=== PATIENT | male | born 1935 | race Caucasian/White ===

== ENCOUNTER 2018-09-11 19:50 | Inpatient (IN) | payer MEDICARE, OTHER ==
[~2018-09-11] VITALS: Ht 157.5 cm; Wt 83.6 kg
[2018-09-11] MEDS ORDERED: ONDANSETRON 4 MG INJ IV STA (21:57)
[2018-09-11] MEDS ORDERED: CEFTRIAXONE 1 GM/50 ML (PMX) 50 ML IVPB STA (23:39)
[2018-09-11] MEDS ORDERED: AZITHROMYCIN 500MG/NS (PMX) 250 ML IV STA (23:39)
[2018-09-12] VITALS (10 sets, daily range): BP systolic 142–155; BP diastolic 70–80; PULSE 65–72; RESP 18; Ht 157.5 cm; Wt 83.6 kg
--- NOTE | 2018-09-12 00:17 | ERD ---
ER Documentation Chief Complaint Chief Complaint BIBA: report pt felt dizzy at home, guided self to floor feels better now HPI This is an 83-year-old male with a history of hypertension, CAD, CHF who presents to the emergency room for evaluation of generalized weakness, mild shortness of breath and dry cough. The patient states his symptoms have been present for the past 24 hours. He describes his dizziness as a generalized wea kness and not a room spinning sensation. The patient came in today for evaluation of his symptoms. He denies any aggravating or relieving factors at this time ROS All systems reviewed and are negative except as per history of present illness. Medications Home Meds Unable to Obtain Active Prescriptions or Reported Meds Allergies Allergies: Coded Allergies: Unknown: Unable to obtain (Unverified , 09/11/18) PMhx/Soc Hx Cardiac Disorders: Yes (HTN) Smoking Status: Unknown if ever smoked Physical Exam Vitals Vital Signs Date Temp Pulse Resp B/P (MAP) Pulse Ox O2 O2 Flow FiO2 Time Delivery Rate 09/11/18 97.6 75 18 166/100 96 Room Air 22:20 (122) 09/11/18 98.3 84 20 168/98 94 19:59 (121) Physical Exam INITIAL VITAL SIGNS: Reviewed by me GENERAL: The patient is well developed and appropriate for usual state of health in no apparent distress HEENT: Pupils equal, round, and reactive to light. EOMI. There is no scleral icterus. NECK: C-spine is soft and supple, there is no meningismus. There is no cervical lymphadenopathy. LUNGS: Coarse rhonchi in the bilateral lower lobes HEART: Regular rate and rhythm, no murmurs, clicks, rubs or gallops. ABDOMEN: Soft, non-tender, non-distended. There are bowel sounds in all four quadrants. No rebound or guarding. EXTREMITIES: There is no peripheral cyanosis or edema. No focal swelling or erythema. NEUROLOGICAL: The patient moves all four extremities with 5/5 strength. Cranial nerves II - XII are intact. Normal gait. Alert and oriented SKIN: There is no apparent rash or petechiae. HEME/LYMPHATIC: There is no evidence of excessive bruising or lymphedema. PSYCHIATRIC: The patient does not appear anxious or depressed. Result Diagram: 09/11/180 09/11/18 2210 Results 24 hrs Laboratory Tests Test 09/11/18 22:10 White Blood Count 10.7 10^3/ul Red Blood Count 4.12 10^6/ul Hemoglobin 14.0 g/dl Hematocrit 41.3 % Mean Corpuscular Volume 100.2 fl Mean Corpuscular Hemoglobin 34.0 pg Mean Corpuscular Hemoglobin Concent 33.9 g/dl Red Cell Distribution Width 13.1 % Platelet Count 140 10^3/UL Mean Platelet Volume 11.0 fl Immature Granulocytes % 0.300 % Neutrophils % 76.0 % Lymphocytes % 17.0 % Monocytes % 5.4 % Eosinophils % 1.0 % Basophils % 0.3 % Nucleated Red Blood Cells % 0.0 /100WBC Immature Granulocytes # 0.030 10^3/ul Neutrophils # 8.1 10^3/ul Lymphocytes # 1.8 10^3/ul Monocytes # 0.6 10^3/ul Eosinophils # 0.1 10^3/ul Basophils # 0.0 10^3/ul Nucleated Red Blood Cells # 0.0 10^3/ul Sodium Level 138 mmol/L Potassium Level 4.3 mmol/L Chloride Level 101 mmol/L Carbon Dioxide Level 28 mmol/L Anion Gap 9 Blood Urea Nitrogen 26 mg/dl Creatinine 1.26 mg/dl Est Glomerular Filtrat Rate mL/min mL/min Glucose Level 123 mg/dl Calcium Level 10.1 mg/dl Total Bilirubin 0.5 mg/dl Direct Bilirubin 0.00 mg/dl Indirect Bilirubin 0.5 mg/dl Aspartate Amino Transf (AST/SGOT) 31 IU/L Alanine Aminotransferase (ALT/SGPT) 19 IU/L Alkaline Phosphatase 82 IU/L Troponin I < 0.012 ng/ml B-Type Natriuretic Peptide 1150 PG/ML Total Protein 7.7 g/dl Albumin 4.1 g/dl Globulin 3.60 g/dl Albumin/Globulin Ratio 1.13 Current Medications Medications Dose Sig/Nazario Start Time Status Last (Trade) Ordered Route PRN Stop Time Admin Dose Reason Admin Ondansetron 4 mg ONCE STAT 09/11/18 DC 09/11/18 HCl (Zofran IV 21:57 22:18 Inj) 09/11/18 21:59 Ceftriaxone 50 ml @ ONCE STAT 09/11/18 DC Sodium 100 mls/hr IVPB 23:39 09/12/18 00:08 Azithromycin 250 ml @ ONCE STAT 1/25/19 250 mls/hr IV 23:39 09/12/18 00:38 Procedures/MDM Chest X-ray 1V Interpreted by me: Soft Tissue: No acute abnormalities Bones: No acute abnormalities Mediastinum/Cardiac Silhouette/Lungs: Right lower lobe pneumonia EKG: Rate/Rhythm: Paced rhythm QRS, ST, T-waves: [No changes consistent w/ acute ischemia] Impression: Paced rhythm This 83-year-old male presents to the ER for evaluation of multiple complaints including generalized weakness, dizziness, cough and shortness of breath. The patient was afebrile and nontoxic-appearing on my examination. His pulse ox was 98% on room air. He did have coarse breath sounds bilaterally and lab work was obtained. Chest x-ray does demonstrate right lower lobe pneumonia. He has no leukocytosis at this time however given his age and risk factors this patient will benefit from inpatient hospitalization for continued IV antibiotics, repeat chest x-ray in possible pulmonology consult. The patient will be admitted to the telemetry floor under the care of Dr. Strong. He has no signs of sepsis at this time. Blood cultures were drawn before administration of a Rocephin and azithromycin. Departure Diagnosis: Primary Impression: Right lower lobe pneumonia Additional Impressions: Generalized weakness Dizziness Cough CHF (congestive heart failure) Condition: BUTCH Haddad DO Sep 12, 2018 00:17
[2018-09-12] MEDS ORDERED: ONDANSETRON 4 MG INJ IV PRN ×2 (00:30→01:00)
[2018-09-12] MEDS ORDERED: ACETAMINOPHEN 325 MG TAB PO PRN (00:30)
[2018-09-12] MEDS ORDERED: BISACODYL (EC) 5 MG TAB PO PRN (01:00)
[2018-09-12] MEDS ORDERED: DOCUSATE SODIUM 100 MG CAP PO PRN (01:00)
[2018-09-12] MEDS ORDERED: NACL 0.9% 3 ML SYG IV SCH (01:00)
--- NOTE | 2018-09-12 01:19 | NUR ---
Patient arrived to unit from ED. No acute distress or discomfort noted. BP: 155/80, RR 18, temp 97.9F, HR 72, SpO2 98% on 2L nasal cannula. Unable to get Farsi translation at this time. Pending translation to verify patient medical history, demographics, and admission criteria.
--- NOTE | 2018-09-12 07:02 | NUR ---
EOSS: Patient alert and oriented x4, audible wheezing, but no complaints of discomfort or distress. Able to get Farsi data lead to verify patient information. All needs anticipated and met. Will continue to monitor and endorse to oncoming shift.
[2018-09-12] MEDS ORDERED: FUROSEMIDE 40 MG INJ IV ONE (08:30)
--- NOTE | 2018-09-12 08:30 | HP ---
Date/Time of Note Date/Time of Note DATE: 09/12/18 TIME: 08:23 Assessment/Plan VTE Prophylaxis SCD applied (from Nsg): Yes Pharmacological prophylaxis: LMWH Lines/Catheters IV Catheter Type (from Nrsg): Saline Lock Assessment/Plan Hospital Course This is a 83-year-old male being admitted to telemetry floor: #1 dyspnea: Community-acquired pneumonia versus CHF exacerbation: Patient has questionable infiltrates versus pulmonary congestion on x-ray. He is afebrile. He was started on antibiotics in the ED at the current time we will continue ceftriaxone and azithromycin. I will also give the patient a dose of Lasix. He did have an elevated BNP of approximately 1000. Will check an echocardiogram. Strict I's and O's monitor daily weight. We will trend cardiac enzymes, the first that was negative #2 possible CHF exacerbation, size systolic versus diastolic: We will check an echocardiogram, will give a dose of Lasix. Will monitor closely for additional Lasix. We will need to confirm patient's home medications #3 hypertension: We will need to confirm patient's home medications, monitor patient blood pressure #4 coronary artery disease: Again we will need to confirm patient's home medications #5 DVT GI prophylaxis: Lovenox, no GI prophylaxis indicated Further treatment strategy will be implemented as per the clinical course. Result Diagram: 09/12/18 0603 09/12/18 0603 Results 24hrs Laboratory Tests Test 09/11/18 22:10 09/12/18 00:26 09/12/18 06:02 09/12/18 06:03 White Blood Count 10.7 8.2 # Red Blood Count 4.12 L 3.93 L Hemoglobin 14.0 13.2 L Hematocrit 41.3 L 40.2 L Mean Corpuscular 100.2 102.3 H Volume Mean Corpuscular 34.0 H 33.6 H Hemoglobin Mean Corpuscular 33.9 32.8 Hemoglobin Concent Red Cell 13.1 13.0 Distribution Width Platelet Count 140 120 L Mean Platelet Volume 11.0 H 12.0 H Immature 0.300 0.200 Granulocytes % Neutrophils % 76.0 67.5 Lymphocytes % 17.0 21.6 Monocytes % 5.4 7.9 Eosinophils % 1.0 2.2 Basophils % 0.3 0.6 Nucleated Red Blood 0.0 0.0 Cells % Immature 0.030 0.020 Granulocytes # Neutrophils # 8.1 H 5.6 Lymphocytes # 1.8 1.8 Monocytes # 0.6 0.7 Eosinophils # 0.1 0.2 Basophils # 0.0 0.1 Nucleated Red Blood 0.0 0.0 Cells # Sodium Level 138 142 Potassium Level 4.3 3.9 Chloride Level 101 102 Carbon Dioxide Level 28 32 H Anion Gap 9 8 Blood Urea Nitrogen 26 H 22 H Creatinine 1.26 H 1.16 Est Glomerular Filtrat Rate mL/min Glucose Level 123 95 Calcium Level 10.1 9.1 Total Bilirubin 0.5 0.5 Direct Bilirubin 0.00 0.00 Indirect Bilirubin 0.5 0.5 Aspartate Amino 31 28 Transf (AST/SGOT) Alanine 19 23 Aminotransferase (AL T/SGPT) Alkaline Phosphatase 82 59 Troponin I < 0.012 < 0.012 B-Type Natriuretic 1150 H Peptide Total Protein 7.7 7.2 Albumin 4.1 3.6 Globulin 3.60 H 3.60 H Albumin/Globulin 1.13 1.00 Ratio POC Venous Lactate 1.5 Creatine Kinase 39 Creatine Kinase 2.0 Index Creatinine Kinase MB 0.78 (Mass) Hemoglobin A1c 4.6 Magnesium Level 2.2 Triglycerides Level 90 Cholesterol Level 158 LDL Cholesterol, 105 Calculated HDL Cholesterol 35 Cholesterol/HDL 4.5 Ratio Thyroid Stimulating 2.730 Hormone (TSH) HPI/ROS Admit Date/Time Admit Date/Time Sep 12, 2018 at 00:14 Hx of Present Illness Chief complaint: Dizziness, Patient is a poor historian he is unable to provide history of his medications., this is an 83-year-old male with a history of hypertension, CAD, CHF, status post pacemaker who presents to the emergency room for evaluation of generalized weakness, mild shortness of breath and dry cough. The patient states his symptoms have been present for the past 24 hours. He describes his dizziness as a generalized weakness and not a room spinning sensation. Patient reported that he felt dizzy at home so he slowly sat himself on the floor and then started feeling better. The patient came in today for evaluation of his symptoms. He denies any aggravating or relieving factors at this time denies any fevers. Allergies: Unknown Medications: Unknown, unable to obtain ROS Const: As per HPI Eyes : No pain discharge or redness or change in visual acuity ENT: No pain, sore throat, congestion, congestion, dysphagia or discharge Respiratory: As per HPI Cardiovascular: As per HPI GI : no change in appetite, abdominal pain, nausea, vomiting, diarrhea, constipation, or change in the color his stool Genitourinary: No dysuria, hematuria, flank pain , discharge or CVA tenderness Musculoskeletal: No joint pain, back pain, neck pain, restricted range of motion in neck or joints Skin: No rash, bruising or hives Neuro: No headache, dizziness, syncope, seizure, focal weakness Endocrine: No polyuria, polydipsia, temperature intolerance Psych: No hallucination, depression, anxiety or suicidal ideation PMH/Family/Social Past Medical History hypertension, CAD, CHF, status post pacemaker Medications Current Medications Ondansetron HCl (Zofran Inj) 4 mg ER BRIDGE PRN IV NAUSEA/VOMITING; Start 09/12/18 at 00:30; Stop 09/13/18 at 00:29 Acetaminophen (Tylenol Tab) 650 mg ER BRIDGE PRN PO .MILD PAIN 1-3 OR TEMP; Start 09/12/18 at 00:30; Stop 09/13/18 at 00:29 IV Flush (NS 3 ml) 3 ml PER PROTOCOL IV ; Start 09/12/18 at 01:00 Ondansetron HCl (Zofran Inj) 4 mg Q6H PRN IV NAUSEA/VOMITING; Start 09/12/18 at 01:00 Acetaminophen (Tylenol Tab) 650 mg Q6H PRN PO .PAIN 1-3 OR TEMP; Start 09/12/18 at 01:00 Docusate Sodium (Colace) 100 mg Q12H PRN PO .CONSTIPATION; Start 09/12/18 at 01:00 Bisacodyl (Dulcolax) 5 mg DAILY PRN PO .CONSTIPATION; Start 09/12/18 at 01:00 Enoxaparin Sodium (Lovenox) 30 mg DAILY SC ; Start 09/12/18 at 09:00 Ceftriaxone Sodium 50 ml @ 100 mls/hr Q24H IVPB ; Start 09/12/18 at 23:00 Azithromycin 250 ml @ 250 mls/hr Q24H IVPB ; Start 09/12/18 at 23:00 Furosemide (Lasix) 40 mg ONCE ONCE IV ; Start 09/12/18 at 08:30; Stop 09/12/18 at 08:31 Coded Allergies: Unknown: Unable to obtain (Unverified , 1/25/19) Past Surgical History Pacemaker Family History Significant Family History: no pertinent family hx Social History Smoking Status: Unknown if ever smoked Exam/Review of Systems Vital Signs Vitals Vital Signs Date Temp Pulse Resp B/P (MAP) Pulse Ox O2 O2 Flow FiO2 Time Delivery Rate 09/12/18 72 08:14 09/12/18 98.1 18 152/74 98 Room Air 04:00 (100) 09/12/18 2.0 01:49 Exam Exam General: Patient currently sitting upright in bed in no acute distress HEENT: Atraumatic, normocephalic. The pupils are equal, round and reactive. Extraocular motor are intact Neck: Supple with full range of motion. No rigidity or meningismus Chest: Nontender Lungs: Coarse breath sounds bilaterally, crackles/on 1 of the colon but no cough: Adventitious breath sounds at the right lower lung base Heart: Normal S1-S2, Regular rhythm and rate. No murmur, S3, or S4 Abdomen: Soft , nontender, nondistended , bowel sounds are present. No guarding no rebound tenderness , No masses or organomegaly. No costovertebral temporal angle mass Extremities: Normal to inspection, no edema no cyanosis, Neurologic: Normal mental status, speech normal, cranial nerves II through XII are intact, motor and sensory are intact, Additional Comments EKG: Rate/Rhythm: Paced rhythm QRS, ST, T-waves: [No changes consistent w/ acute ischemia] Impression: Paced rhythm PROCEDURE: CT Brain without contrast. CLINICAL INDICATION: 83-year-old male. Headache and dizziness. TECHNIQUE: A CT of the brain was performed on a multi-slice CT scanner utilizing axial imaging from the skull base through the vertex without IV contrast. Multiplanar reformatted images were made. Images were reviewed on a PACS workstation. One or more the following dose reduction techniques were utilized: Automated exposure control, adjustment of mA/ or kV according to patient's size, or use of iterative reconstruction technique. DICOM images are available for review. The CTDIvol is 38.38 mGy and the DLP is 634.23 mGycm. COMPARISON: None FINDINGS: Generalized cerebral volume loss with cortical sulcal prominence and ex vacuo enlargement of the lateral and third ventricles. No acute intra-axial or extra- axial hemorrhage. No subdural collection. Mendiola - white matter differentiation is maintained. Scattered focal areas of decreased attenuation and confluent areas of low attenuation change noted throughout the white matter of the left and right cerebral hemispheres. No hyperdense MCA or basilar artery sign. No asymmet river sulcal effacement. Air fluid level left maxillary sinus. Mastoid air cells are clear. IMPRESSION: 1. Age-appropriate involutional change. 2. 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 3. acute intracranial hemorrhage or subdural collection. 4. Acute left maxillary sinus disease. RPTAT: HLRS Physician Jennie Date Time Electronically viewed and signed by Physician Jennie on 09/11/2018 23:35 RS/ CC: BUTCH FRAUSTO DO [id number] PROCEDURE: DX Chest 1 View CLINICAL INDICATION: Chest pain. TECHNIQUE: AP Portable chest. COMPARISON: None FINDINGS: Dual chamber pacing device, generator on the left. Apical lordotic projection. Borderline cardiomegaly. Aortic calcified plaque present. No CHF or hilar enlargement. Increased markings are present in the mid and lower right lung. Subsegmental atelectasis mid lateral left lung. Loop recorder projects over the medial mid left lung. IMPRESSION: 1. Poorly defined mid to lower right lung infiltrate/pneumonia. 2. Pacing device and loop recorder. 3. Borderline cardiomegaly. RPTAT: HLRS Physician Jennie Date Time Electronically viewed and signed by Physician Jennie on 09/11/2018 23:36 RS/ CC: BUTCH FRAUSTO DO [id number] JARROD STERLING Sep 12, 2018 08:30
[2018-09-12] MEDS: ENOXAPARIN 30 MG/0.3 ML SYG SC SCH (08:44)
[2018-09-12] MEDS: ACETAMINOPHEN 325 MG TAB PO PRN (10:07)
--- NOTE | 2018-09-12 11:49 | PN ---
Date/Time of Note Date/Time of Note DATE: 09/12/18 TIME: 11:47 Assessment/Plan VTE Prophylaxis Risk score (from Ns)>0 risk: 5 SCD applied (from Ns): Yes Pharmacological prophylaxis: LMWH Lines/Catheters IV Catheter Type (from Nrs): Saline Lock Assessment/Plan Assessment/Plan This is a brief note that this patient was seen this morning. Patient was admitted shortness of breath and dizziness. He is being treated for pneumonia. Head CT was negative for acute findings. Continue plan of care as outlined on the H&P Result Diagram: 09/12/18 0603 09/12/18 0603 Results 24hrs Laboratory Tests Test 09/11/18 22:10 09/12/18 00:26 09/12/18 06:02 09/12/18 06:03 White Blood Count 10.7 8.2 # Red Blood Count 4.12 L 3.93 L Hemoglobin 14.0 13.2 L Hematocrit 41.3 L 40.2 L Mean Corpuscular 100.2 102.3 H Volume Mean Corpuscular 34.0 H 33.6 H Hemoglobin Mean Corpuscular 33.9 32.8 Hemoglobin Concent Red Cell 13.1 13.0 Distribution Width Platelet Count 140 120 L Mean Platelet Volume 11.0 H 12.0 H Immature 0.300 0.200 Granulocytes % Neutrophils % 76.0 67.5 Lymphocytes % 17.0 21.6 Monocytes % 5.4 7.9 Eosinophils % 1.0 2.2 Basophils % 0.3 0.6 Nucleated Red Blood 0.0 0.0 Cells % Immature 0.030 0.020 Granulocytes # Neutrophils # 8.1 H 5.6 Lymphocytes # 1.8 1.8 Monocytes # 0.6 0.7 Eosinophils # 0.1 0.2 Basophils # 0.0 0.1 Nucleated Red Blood 0.0 0.0 Cells # Sodium Level 138 142 Potassium Level 4.3 3.9 Chloride Level 101 102 Carbon Dioxide Level 28 32 H Anion Gap 9 8 Blood Urea Nitrogen 26 H 22 H Creatinine 1.26 H 1.16 Est Glomerular Filtrat Rate mL/min Glucose Level 123 95 Calcium Level 10.1 9.1 Total Bilirubin 0.5 0.5 Direct Bilirubin 0.00 0.00 Indirect Bilirubin 0.5 0.5 Aspartate Amino 31 28 Transf (AST/SGOT) Alanine 19 23 Aminotransferase (AL T/SGPT) Alkaline Phosphatase 82 59 Troponin I < 0.012 < 0.012 B-Type Natriuretic 1150 H Peptide Total Protein 7.7 7.2 Albumin 4.1 3.6 Globulin 3.60 H 3.60 H Albumin/Globulin 1.13 1.00 Ratio POC Venous Lactate 1.5 Creatine Kinase 39 Creatine Kinase 2.0 Index Creatinine Kinase MB 0.78 (Mass) Hemoglobin A1c 4.6 Magnesium Level 2.2 Triglycerides Level 90 Cholesterol Level 158 LDL Cholesterol, 105 Calculated HDL Cholesterol 35 Cholesterol/HDL 4.5 Ratio Thyroid Stimulating 2.730 Hormone (TSH) Test 09/12/18 10:24 Creatine Kinase 39 Creatine Kinase 1.6 Index Creatinine Kinase MB 0.64 (Mass) Troponin I < 0.012 Subjective 24 Hr Interval Summary Free Text/Dictation Patient is Farsi speaking, but stated that his breathing is better. Exam/Review of Systems Exam Vitals Vital Signs Date Temp Pulse Resp B/P (MAP) Pulse Ox O2 O2 Flow FiO2 Time Delivery Rate 09/12/18 Nasal 2.0 08:30 Cannula 09/12/18 72 08:14 09/12/18 97.2 18 149/70 96 07:55 (96) Constitutional: alert, oriented, well developed Eyes: EOMI, PERRL Respiratory: other (Slightly decreased breath sounds at the bases bilaterally) Cardiovascular: other (Sinus tachycardia) Gastrointestinal: soft Extremities: normal pulses Results Results 24hrs Laboratory Tests Test 09/11/18 22:10 09/12/18 00:26 09/12/18 06:02 09/12/18 06:03 White Blood Count 10.7 8.2 # Red Blood Count 4.12 L 3.93 L Hemoglobin 14.0 13.2 L Hematocrit 41.3 L 40.2 L Mean Corpuscular 100.2 102.3 H Volume Mean Corpuscular 34.0 H 33.6 H Hemoglobin Mean Corpuscular 33.9 32.8 Hemoglobin Concent Red Cell 13.1 13.0 Distribution Width Platelet Count 140 120 L Mean Platelet Volume 11.0 H 12.0 H Immature 0.300 0.200 Granulocytes % Neutrophils % 76.0 67.5 Lymphocytes % 17.0 21.6 Monocytes % 5.4 7.9 Eosinophils % 1.0 2.2 Basophils % 0.3 0.6 Nucleated Red Blood 0.0 0.0 Cells % Immature 0.030 0.020 Granulocytes # Neutrophils # 8.1 H 5.6 Lymphocytes # 1.8 1.8 Monocytes # 0.6 0.7 Eosinophils # 0.1 0.2 Basophils # 0.0 0.1 Nucleated Red Blood 0.0 0.0 Cells # Sodium Level 138 142 Potassium Level 4.3 3.9 Chloride Level 101 102 Carbon Dioxide Level 28 32 H Anion Gap 9 8 Blood Urea Nitrogen 26 H 22 H Creatinine 1.26 H 1.16 Est Glomerular Filtrat Rate mL/min Glucose Level 123 95 Calcium Level 10.1 9.1 Total Bilirubin 0.5 0.5 Direct Bilirubin 0.00 0.00 Indirect Bilirubin 0.5 0.5 Aspartate Amino 31 28 Transf (AST/SGOT) Alanine 19 23 Aminotransferase (AL T/SGPT) Alkaline Phosphatase 82 59 Troponin I < 0.012 < 0.012 B-Type Natriuretic 1150 H Peptide Total Protein 7.7 7.2 Albumin 4.1 3.6 Globulin 3.60 H 3.60 H Albumin/Globulin 1.13 1.00 Ratio POC Venous Lactate 1.5 Creatine Kinase 39 Creatine Kinase 2.0 Index Creatinine Kinase MB 0.78 (Mass) Hemoglobin A1c 4.6 Magnesium Level 2.2 Triglycerides Level 90 Cholesterol Level 158 LDL Cholesterol, 105 Calculated HDL Cholesterol 35 Cholesterol/HDL 4.5 Ratio Thyroid Stimulating 2.730 Hormone (TSH) Test 09/12/18 10:24 Creatine Kinase 39 Creatine Kinase 1.6 Index Creatinine Kinase MB 0.64 (Mass) Troponin I < 0.012 Medications Medication Current Medications Ondansetron HCl (Zofran Inj) 4 mg ER BRIDGE PRN IV NAUSEA/VOMITING; Start 09/12/18 at 00:30; Stop 09/13/18 at 00:29 Acetaminophen (Tylenol Tab) 650 mg ER BRIDGE PRN PO .MILD PAIN 1-3 OR TEMP; Start 09/12/18 at 00:30; Stop 09/13/18 at 00:29 IV Flush (NS 3 ml) 3 ml PER PROTOCOL IV ; Start 09/12/18 at 01:00 Ondansetron HCl (Zofran Inj) 4 mg Q6H PRN IV NAUSEA/VOMITING; Start 09/12/18 at 01:00 Acetaminophen (Tylenol Tab) 650 mg Q6H PRN PO .PAIN 1-3 OR TEMP Last administered on 09/12/18at 10:07; Admin Dose 650 MG; Start 09/12/18 at 01:00 Docusate Sodium (Colace) 100 mg Q12H PRN PO .CONSTIPATION; Start 09/12/18 at 01:00 Bisacodyl (Dulcolax) 5 mg DAILY PRN PO .CONSTIPATION; Start 09/12/18 at 01:00 Enoxaparin Sodium (Lovenox) 30 mg DAILY SC Last administered on 09/12/18at 08:44; Admin Dose 30 MG; Start 09/12/18 at 09:00 Ceftriaxone Sodium 50 ml @ 100 mls/hr Q24H IVPB ; Start 09/12/18 at 23:00 Azithromycin 250 ml @ 250 mls/hr Q24H IVPB ; Start 09/12/18 at 23:00 SVITLANA BARRERA MD Sep 12, 2018 11:49
--- NOTE | 2018-09-12 18:07 | NUR ---
EOSS Patient is alert and oriented to person, place, and time. Farsi speaking. Used phone night auditor to communicate with patient about medications and plan of care. Patient able to verbalize understanding of discussion. Patient was noted with audible wheezing on bilateral lungs. MD made aware and received orders. Patient was given lasix IVP x1. Patient has improved breathing after treatment. monitored strict I&O. All needs attended to and met. Kept comfortable. Call light within reach.
[2018-09-12] MEDS: AZITHROMYCIN 250 MG TAB PO SCH (21:04)
[2018-09-12] MEDS ORDERED: AZITHROMYCIN 500MG/NS (PMX) 250 ML IVPB SCH (23:00)
[2018-09-12] MEDS: CEFTRIAXONE 1 GM/50 ML (PMX) 50 ML IVPB SCH (23:28)
[2018-09-13] VITALS (12 sets, daily range): BP systolic 128–172; BP diastolic 63–94; PULSE 67–175; RESP 18–21
[2018-09-13] MEDS: ACETAMINOPHEN 325 MG TAB PO PRN ×2 (03:29→09:14)
--- NOTE | 2018-09-13 06:19 | NUR ---
EOSS: Pt asleep in bed. VS stable, denies SOB. Pain partially managed w/pharmacologic intervention. Pt complaining of abdominal discomfort, using an calender let off helper, pt describes the pain relating to constipation, Dr. Strong notified, new orders given. Rounded on hourly, bed in locked and low position, bed alarm green, bed rail x2, call light within reach; pt reminded to call when in need of assistance. Will endorse to dayshift RN.
[2018-09-13] MEDS ORDERED: POLYETHYLENE GLYCOL 17 GM PACKET PO PRN (06:30)
[2018-09-13] MEDS ORDERED: POLYETHYLENE GLYCOL 17 GM PACKET GTB PRN (06:30)
[2018-09-13] MEDS: DOCUSATE SODIUM 100 MG CAP PO SCH ×2 (06:54→21:32)
--- NOTE | 2018-09-13 08:50 | RADRPT ---
Echocardiogram Report Patient Name: JUSTIN DERAS Gender: Male Date: 1935 Study Date: 12-Sep-2018 Fringe Knotter: Kirit Contreras [facility] Location: 514[address] Ref. Physician: JARROD STERLING Quality: Adequate Procedures: Transthoracic echocardiogram with complete 2D, M-Mode, and doppler examination. Indications: Cardiomegaly. 2D/M Mode Doppler Measurement Value Normal Ranges Measurement Value Normal Ranges LVIDd 2D 5.0 3.5 - 5.6 cm AV Peak Franklyn 1.1 m/sec LVIDs 2D 3.4 2.1 - 4.1 cm AV Peak PG 5.0 mmHg LVPWd 2D 1.0 0.6 - 1.1 cm LVOT Peak Franklyn 0.8 m/sec IVSd 2D 1.2 0.6 - 1.1 cm LVOT Peak PG 3.0 mmHg AoR Diam 2D 2.6 2.0 - 3.7 cm MV E Peak Franklyn 0.7 m/sec LA/Ao 2D 2 0 - 1 MV A Peak Franklyn 1.1 m/sec LA Dimen 2D 4.6 2.3 - 4.0 cm MV E/A 0.7 MV Decel Time 250 msec Lat E` Franklyn 0.0 m/sec Lateral E/E` 16.0 Med E` Franklyn 0.0 m/sec MV E/A 0.7 TR Peak Franklyn 2.6 m/sec TR Peak PG 28.0 mmHg RVSP 36.0 mmHg Findings Left Ventricle: Lower limits of normal systolic function. Normal left ventricular cavity size. Sigmoid septum. Ejection fraction is visually estimated at 50 %. Tissue Doppler/Mitral Doppler indices are consistent with impaired relaxation (Stage I diastolic dysfunction). Right Ventricle: Normal right ventricular size. Normal right ventricular systolic function. Left Atrium: There is mild enlargement of left atrium. Right Atrium: The right atrium is normal in size. Mitral Valve: Moderate mitral leaflet calcification. Mild mitral annular calcification. Trace mitral regurgitation. Aortic Valve: No significant aortic stenosis or insufficiency. Aortic cusps appear mildly calcified. Trace aortic valve regurgitation. Tricuspid Valve: Normal appearance of the tricuspid valve. Estimated peak PA systolic pressure 28 mmHg. There is mild tricuspid regurgitation. Pericardium: Normal pericardium with no significant pericardial effusion. Aorta: Normal aortic root. IVC: Normal size and no respiratory collapse consistent with elevated right atrial pressure. Conclusions Lower limits of normal systolic function. Normal left ventricular cavity size. Sigmoid septum. Ejection fraction is visually estimated at 50 %. Tissue Doppler/Mitral Doppler indices are consistent with impaired relaxation (Stage I diastolic dysfunction). Electronically Signed By: Moiz Calvert 13-Sep-2018 08:50:05 -0800 Patient Name: JUSTIN DERAS Study Date: 12-Sep-2018 [id number]
[2018-09-13] MEDS: ENOXAPARIN 30 MG/0.3 ML SYG SC SCH (09:18)
--- NOTE | 2018-09-13 11:03 | PN ---
Date/Time of Note Date/Time of Note DATE: 09/13/18 TIME: 11:02 Assessment/Plan VTE Prophylaxis Risk score (from Ns)>0 risk: 5 SCD applied (from Ns): No SCD contraindicated: other Pharmacological prophylaxis: LMWH Lines/Catheters IV [facility]ter Type (from [facility] Saline Lock Assessment/Plan Hospital Course SUBJECTIVE: Complains of constipation. OBJECTIVE: Physical Exam General: Adequately build 83 year-old male lying in bed in no apparent distress. HEENT: Normocephalic, atraumatic. Eyes: Anicteric sclerae, conjunctivae clear. ENT: Nasal septum midline, oral mucosa moist. Neck supple, JVD noticed. Respiratory: Bilaterally diminished breath sounds. No use of accessory muscles of respiration. Bibasilar rales. Cardiovascular: S1, S2 heard. No murmurs or gallops. Abdomen: Soft, nontender, and nondistended. Bowel sounds positive in all 4 quadrants. Genitourinary: Deferred. Extremities: No cyanosis, no clubbing, no edema. Peripheral pulses palpable. Neurologic: Cranial nerves II through XII grossly intact. The patient is awake, alert, and oriented. Skin: Normal skin turgor. No skin rashes. Labs & Vitals per chart ASSESSMENT & PLAN 83-year-old male with comorbidities including hypertension, CAD, CHF, and perm anent pacemaker placement, who came to the emergency room with chief complaint of dizziness. Patient underwent a chest x-ray in the emergency room that showed poorly defined lower right lung infiltrate/pneumonia. The patient was admitted to inpatient setting for further treatment and evaluation. 1. Suspected community-acquired pneumonia. -Continue Zithromax plus Rocephin. 2. Congestive heart failure exacerbation. -Diastolic dysfunction. -Spot diuresis. 3. Essential hypertension. -Confirm the patient's home medications and resume. 4. Suspected history of CAD. -Confirm the patient's home medications and resume. 5. Fluids, electrolytes, and nutrition. -Low-cholesterol diet. 6. DVT prophylaxis. -Subcutaneous Lovenox. 7. Plan. -Continue Zithromax plus Rocephin. -Obtain a repeat chest x-ray. -Start bowel regimen. The patient was seen in collaboration with Dr. Mcnair. Result Diagram: 09/13/18 0611 09/13/18 0611 Results 24hrs Laboratory Tests Test 09/13/18 06:11 White Blood Count 8.9 Red Blood Count 3.93 L Hemoglobin 13.2 L Hematocrit 39.7 L Mean Corpuscular Volume 101.0 Mean Corpuscular Hemoglobin 33.6 H Mean Corpuscular Hemoglobin Concent 33.2 Red Cell Distribution Width 13.0 Platelet Count 127 L Mean Platelet Volume 12.4 H Immature Granulocytes % 0.300 Neutrophils % 72.2 Lymphocytes % 18.6 Monocytes % 7.7 Eosinophils % 0.9 Basophils % 0.3 Nucleated Red Blood Cells % 0.0 Immature Granulocytes # 0.030 Neutrophils # 6.4 Lymphocytes # 1.7 Monocytes # 0.7 Eosinophils # 0.1 Basophils # 0.0 Nucleated Red Blood Cells # 0.0 Sodium Level 142 Potassium Level 4.3 Chloride Level 100 Carbon Dioxide Level 31 Anion Gap 11 Blood Urea Nitrogen 25 H Creatinine 1.12 Est Glomerular Filtrat Rate mL/min Glucose Level 94 Calcium Level 9.0 Total Bilirubin 0.5 Direct Bilirubin 0.00 Indirect Bilirubin 0.5 Aspartate Amino Transf (AST/SGOT) 29 Alanine Aminotransferase (ALT/SGPT) 23 Alkaline Phosphatase 61 Total Protein 7.2 Albumin 3.6 Globulin 3.60 H Albumin/Globulin Ratio 1.00 Exam/Review of Systems Exam Vitals Vital Signs Date Temp Pulse Resp B/P (MAP) Pulse Ox O2 O2 Flow FiO2 Time Delivery Rate 09/13/18 71 10:45 09/13/18 98.1 10:33 09/13/18 Nasal 2.0 07:50 Cannula 09/13/18 18 138/63 97 07:30 (88) Intake and Output 09/12/18 09/12/18 09/13/18 1515:00 23:00 07:00 IntakeIntake Total 100 ml 1000 ml 550 ml OutputOutput Total 1650 ml 575 ml BalanceBalance 100 ml -650 ml -25 ml Results Results 24hrs Laboratory Tests Test 09/13/18 06:11 White Blood Count 8.9 Red Blood Count 3.93 L Hemoglobin 13.2 L Hematocrit 39.7 L Mean Corpuscular Volume 101.0 Mean Corpuscular Hemoglobin 33.6 H Mean Corpuscular Hemoglobin Concent 33.2 Red Cell Distribution Width 13.0 Platelet Count 127 L Mean Platelet Volume 12.4 H Immature Granulocytes % 0.300 Neutrophils % 72.2 Lymphocytes % 18.6 Monocytes % 7.7 Eosinophils % 0.9 Basophils % 0.3 Nucleated Red Blood Cells % 0.0 Immature Granulocytes # 0.030 Neutrophils # 6.4 Lymphocytes # 1.7 Monocytes # 0.7 Eosinophils # 0.1 Basophils # 0.0 Nucleated Red Blood Cells # 0.0 Sodium Level 142 Potassium Level 4.3 Chloride Level 100 Carbon Dioxide Level 31 Anion Gap 11 Blood Urea Nitrogen 25 H Creatinine 1.12 Est Glomerular Filtrat Rate mL/min Glucose Level 94 Calcium Level 9.0 Total Bilirubin 0.5 Direct Bilirubin 0.00 Indirect Bilirubin 0.5 Aspartate Amino Transf (AST/SGOT) 29 Alanine Aminotransferase (ALT/SGPT) 23 Alkaline Phosphatase 61 Total Protein 7.2 Albumin 3.6 Globulin 3.60 H Albumin/Globulin Ratio 1.00 Medications Medication Current Medications IV Flush (NS 3 ml) 3 ml PER PROTOCOL IV ; Start 09/12/18 at 01:00 Ondansetron HCl (Zofran Inj) 4 mg Q6H PRN IV NAUSEA/VOMITING; Start 09/12/18 at 01:00 Acetaminophen (Tylenol Tab) 650 mg Q6H PRN PO .PAIN 1-3 OR TEMP Last administered on 09/13/18 09:14; Admin Dose 650 MG; Start 09/12/18 at 01:00 Docusate Sodium (Colace) 100 mg Q12H PRN PO .CONSTIPATION; Start 09/12/18 at 01:00 Bisacodyl (Dulcolax) 5 mg DAILY PRN PO .CONSTIPATION Last administered on 09/13/18 06:54; Admin Dose 5 MG; Start 09/12/18 at 01:00 Enoxaparin Sodium (Lovenox) 30 mg DAILY SC Last administered on 09/13/18 09:18; Admin Dose 30 MG; Start 09/12/18 at 09:00 Ceftriaxone Sodium 50 ml @ 100 mls/hr Q24H IVPB Last administered on 09/12/18 23:28; Admin Dose 100 MLS/HR; Start 09/12/18 at 23:00 Azithromycin (Zithromax) 500 mg Q24H PO Last administered on 09/12/18 21:04; Admin Dose 500 MG; Start 09/12/18 at 21:00 Docusate Sodium (Colace) 200 mg BID PO Last administered on 09/13/18 06:54; Admin Dose 200 MG; Start 09/13/18 at 06:30 Polyethylene Glycol (Miralax) 17 gm DAILY PO ; Start 09/14/18 at 09:00 AUGUSTO CHENEY NP Sep 13, 2018 11:03
[2018-09-13] MEDS ORDERED: NA PHOSPHATE/BIPHOS 133 ML ENEMA PR PRN (11:30)
[2018-09-13] MEDS ORDERED: FUROSEMIDE 20 MG INJ IV ONE (11:30)
[2018-09-13] MEDS: LISINOPRIL 5 MG TAB PO SCH (11:41)
--- NOTE | 2018-09-13 18:29 | NUR ---
EOSS Patient is alert and oriented to person, place, and time. Farsi speaking. Used phone electrical logging engineer to communicate with patient about medications and plan of care. Patient able to verbalize understanding of discussion. Patient noted with episode of intermittent SVT lasting for 8 minutes. Patient was asymptomatic at this time. BP 104/71. Notified Dr. Mcnair. Received order for x1 metoprolol 50 mg and to hold 2100 dose. noted and carried out. Will endorse to material handler 2nd shift. Patient was given x1 enema. With Bm noted during shift. Assisted patient to bedside commode with 1 person assist. All needs attended to and met. Kept comfortable. Call light within reach.
[2018-09-13] MEDS ORDERED: METOPROLOL 50 MG TAB PO ONE (18:30)
[2018-09-13] MEDS: METOPROLOL 50 MG TAB PO SCH (19:33)
[2018-09-13] MEDS: PREGABALIN 75 MG CAP PO SCH (21:32)
[2018-09-13] MEDS: AZITHROMYCIN 250 MG TAB PO SCH (21:34)
[2018-09-13] MEDS: CEFTRIAXONE 1 GM/50 ML (PMX) 50 ML IVPB SCH (23:21)
[2018-09-14] VITALS (12 sets, daily range): BP systolic 115–164; BP diastolic 61–85; PULSE 69–160; RESP 16–17
[2018-09-14] MEDS ORDERED: MAGNESIUM HYDROXIDE 30ML CUP PO PRN (02:00)
--- NOTE | 2018-09-14 07:41 | NUR ---
EOSS: Pt in bed resting. VS stable. Denies SOB. Complaining of abd discomfort r/t gas and constipation. Dr. Strong notified, milk of magnesia ordered. Rounded on hourly, bed in locked and low position, bed alarm green, bed rail x2, call light within reach; pt reminded to call when in need of assistance. Endorsed to Florecita WHITLEY.
[2018-09-14] MEDS: LISINOPRIL 5 MG TAB PO SCH (08:37)
[2018-09-14] MEDS: DOCUSATE SODIUM 100 MG CAP PO SCH ×2 (08:37→19:50)
[2018-09-14] MEDS: METOPROLOL 50 MG TAB PO SCH ×2 (08:37→19:50)
[2018-09-14] MEDS: FUROSEMIDE 20 MG INJ IV SCH (08:38)
[2018-09-14] MEDS: POLYETHYLENE GLYCOL 17 GM PACKET PO SCH (08:38)
[2018-09-14] MEDS: LOSARTAN 50 MG TAB PO SCH (08:38)
[2018-09-14] MEDS: ENOXAPARIN 30 MG/0.3 ML SYG SC SCH (08:52)
[2018-09-14] MEDS: PREGABALIN 75 MG CAP PO SCH ×2 (08:53→19:51)
[2018-09-14] MEDS: ACETAMINOPHEN 325 MG TAB PO PRN (14:31)
[2018-09-14] MEDS: CEFTRIAXONE 1 GM/50 ML (PMX) 50 ML IVPB SCH (19:50)
[2018-09-14] MEDS: AZITHROMYCIN 250 MG TAB PO SCH (19:51)
--- NOTE | 2018-09-14 19:54 | PN ---
Date/Time of Note Date/Time of Note DATE: 09/14/18 TIME: 19:52 Assessment/Plan VTE Prophylaxis Risk score (from Ns)>0 risk: 7 SCD applied (from [facility] [place]): No SCD contraindicated: low risk/ambulating Pharmacological prophylaxis: NA/contraindicated Pharm contraindication: low risk/ambulating Lines/Catheters [facility] Saline Lock Assessment/Plan Hospital Course A/P 1. At Cp; no ACS; dc home soon 2. Htn 3. Dyspnea; fatigue/ deconditioning? check ct 4. Pacemaker St 5. CAD 6. Constipation 7. Recent cough/ antibiotic use 8. CKD S: better; arms were weak/ heavy? O: vss PE no pallor. jvd reg no mrg ctab nt bs+ nd nt no r/r/g no edema Result Diagram: 09/14/18 0553 09/14/18 0553 Results 24hrs Laboratory Tests Test 09/14/18 05:53 White Blood Count 8.9 Red Blood Count 4.21 L Hemoglobin 14.1 Hematocrit 42.4 Mean Corpuscular Volume 100.7 Mean Corpuscular Hemoglobin 33.5 H Mean Corpuscular Hemoglobin Concent 33.3 Red Cell Distribution Width 13.2 Platelet Count 131 L Mean Platelet Volume 12.4 H Immature Granulocytes % 0.200 Neutrophils % 67.8 Lymphocytes % 22.3 Monocytes % 8.4 Eosinophils % 0.9 Basophils % 0.4 Nucleated Red Blood Cells % 0.0 Immature Granulocytes # 0.020 Neutrophils # 6.0 Lymphocytes # 2.0 Monocytes # 0.8 Eosinophils # 0.1 Basophils # 0.0 Nucleated Red Blood Cells # 0.0 Sodium Level 143 Potassium Level 4.5 Chloride Level 100 Carbon Dioxide Level 33 H Anion Gap 10 Blood Urea Nitrogen 29 H Creatinine 1.29 H Est Glomerular Filtrat Rate mL/min Glucose Level 95 Calcium Level 9.1 Phosphorus Level 3.1 Magnesium Level 2.5 B-Type Natriuretic Peptide 941 H Exam/Review of Systems Exam Vitals Vital Signs Date Temp Pulse Resp B/P (MAP) Pulse Ox O2 O2 Flow FiO2 Time Delivery Rate 09/14/18 98.6 71 16 141/73 93 19:46 (95) 09/14/18 2.0 13:37 09/14/18 Nasal 08:15 Cannula Intake and Output 09/13/18 09/13/1809/14/19 1515:00 23:00 07:00 IntakeIntake Total 1000 ml 290 ml OutputOutput Total 1600 ml 750 ml BalanceBalance -600 ml -460 ml Results Results 24hrs Laboratory Tests Test 09/14/18 05:53 White Blood Count 8.9 Red Blood Count 4.21 L Hemoglobin 14.1 Hematocrit 42.4 Mean Corpuscular Volume 100.7 Mean Corpuscular Hemoglobin 33.5 H Mean Corpuscular Hemoglobin Concent 33.3 Red Cell Distribution Width 13.2 Platelet Count 131 L Mean Platelet Volume 12.4 H Immature Granulocytes % 0.200 Neutrophils % 67.8 Lymphocytes % 22.3 Monocytes % 8.4 Eosinophils % 0.9 Basophils % 0.4 Nucleated Red Blood Cells % 0.0 Immature Granulocytes # 0.020 Neutrophils # 6.0 Lymphocytes # 2.0 Monocytes # 0.8 Eosinophils # 0.1 Basophils # 0.0 Nucleated Red Blood Cells # 0.0 Sodium Level 143 Potassium Level 4.5 Chloride Level 100 Carbon Dioxide Level 33 H Anion Gap 10 Blood Urea Nitrogen 29 H Creatinine 1.29 H Est Glomerular Filtrat Rate mL/min Glucose Level 95 Calcium Level 9.1 Phosphorus Level 3.1 Magnesium Level 2.5 B-Type Natriuretic Peptide 941 H Medications Medication Current Medications IV Flush (NS 3 ml) 3 ml PER PROTOCOL IV ; Start 09/12/18 at 01:00 Ondansetron HCl (Zofran Inj) 4 mg Q6H PRN IV NAUSEA/VOMITING; Start 09/12/18 at 01:00 Acetaminophen (Tylenol Tab) 650 mg Q6H PRN PO .PAIN 1-3 OR TEMP Last administered on 09/14/18at 14:31; Admin Dose 650 MG; Start 09/12/18 at 01:00 Docusate Sodium (Colace) 100 mg Q12H PRN PO .CONSTIPATION; Start 09/12/18 at 01:00 Bisacodyl (Dulcolax) 5 mg DAILY PRN PO .CONSTIPATION Last administered on 09/13/18at 06:54; Admin Dose 5 MG; Start 09/12/18 at 01:00 Enoxaparin Sodium (Lovenox) 30 mg DAILY SC Last administered on 09/14/18at 08:52; Admin Dose 30 MG; Start 09/12/18 at 09:00 Ceftriaxone Sodium 50 ml @ 100 mls/hr Q24H IVPB Last administered on 09/14/18 19:50; Admin Dose 100 MLS/HR; Start 09/12/18 at 23:00 Azithromycin (Zithromax) 500 mg Q24H PO Last administered on 09/14/18 19:51; Admin Dose 500 MG; Start 09/12/18 at 21:00 Docusate Sodium (Colace) 200 mg BID PO Last administered on 09/14/18 19:50; A dmin Dose 200 MG; Start 09/13/18 at 06:30 Polyethylene Glycol (Miralax) 17 gm DAILY PO Last administered on 09/14/18 08:38; Admin Dose 17 GM; Start 09/14/18 at 09:00 Sodium Biphosphate/ Sodium Phosphate (Fleet Enema) 133 ml DAILY PRN [place] CONSTIPATION Last administered on 09/13/18 14:00; Admin Dose 133 ML; Start 09/13/18 at 11:30 Lisinopril (Zestril) 5 mg DAILY PO Last administered on 09/14/18 08:37; Admin Dose 5 MG; Start 09/13/18 at 11:30 Metoprolol Tartrate (Lopressor) 50 mg BID PO Last administered on 09/14/18 19:50; Admin Dose 50 MG; Start 09/13/18 at 21:00 Losartan Potassium (Cozaar) 50 mg DAILY PO Last administered on 09/14/18 08:38; Admin Dose 50 MG; Start 09/14/18 at 09:00 Furosemide (Lasix) 20 mg DAILY IV Last administered on 09/14/18 08:38; Admin Dose 20 MG; Start 09/14/18 at 09:00 Pregabalin (Lyrica) 75 mg BID PO Last administered on 09/14/18 19:51; Admin Dose 75 MG; Start 09/13/18 at 21:00 Magnesium Hydroxide (Milk Of Mag) 30 ml BID PRN PO CONSTIPATION Last ad ministered on 09/14/18 02:44; Admin Dose 30 ML; Start 09/14/18 at 02:00 NICHOLAS BHAKTA MD Sep 14, 2018 19:54
[2018-09-15] VITALS (8 sets, daily range): BP systolic 124–159; BP diastolic 69–81; PULSE 68–73; RESP 16
--- NOTE | 2018-09-15 07:26 | NUR ---
NURSE'S NOTES: Pt resting comfortably with stable VS and cardiac monitor technician showing SR=72. Denies any discomfort. IVATB ongoing with no adverse reaction noted. Assisted to bathroom as needed. Kept clean and comfortable. Call light in reach. Bed alarm on. All needs anticipated and attended promptly.
[2018-09-15] MEDS: METOPROLOL 50 MG TAB PO SCH (08:21)
[2018-09-15] MEDS: LOSARTAN 50 MG TAB PO SCH (08:22)
[2018-09-15] MEDS: LISINOPRIL 5 MG TAB PO SCH (08:22)
[2018-09-15] MEDS: POLYETHYLENE GLYCOL 17 GM PACKET PO SCH (08:22)
[2018-09-15] MEDS: FUROSEMIDE 20 MG INJ IV SCH (08:22)
[2018-09-15] MEDS: DOCUSATE SODIUM 100 MG CAP PO SCH (08:22)
[2018-09-15] MEDS: ENOXAPARIN 30 MG/0.3 ML SYG SC SCH (08:28)
[2018-09-15] MEDS: PREGABALIN 75 MG CAP PO SCH (08:34)
--- NOTE | 2018-09-15 10:35 | NUR ---
RN notes: Pt's daughter Suzan provided patients home health nurse phone number, in case there are additional questions about patient's history. [facility] .
--- NOTE | 2018-09-15 13:25 | DS ---
Date/Time of Note Date/Time of Note DATE: 09/15/18 TIME: 13:14 Discharge Summary Admission/Discharge Info Admit Date/Time Sep 12, 2018 at 00:14 Discharge Date/Time Patient Condition: Stable Procedures Ct brain IMPRESSION: 1. Age-appropriate involutional change. 2. 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 3. acute intracranial hemorrhage or subdural collection. 4. Acute left maxillary sinus disease. Physician Date Time CT Chest without IV contrast IMPRESSION: 1. Moderate pulmonary emphysema. Bibasilar scarring/atelectasis. 2. Mild cardiomegaly. Coronary arterial and aortic atherosclerotic calcifications. 3. Mild hiatal hernia. 4. Status post cholecystectomy. 5. No evidence of focal acute infiltrate. Date Time 2D echo Conclusions Lower limits of normal systolic function. Normal left ventricular cavity size. Sigmoid septum. Ejection fraction is visually estimated at 50 %. Tissue Doppler/Mitral Doppler indices are consistent with impaired relaxation (Stage I diastolic dysfunction). Hx of Present Illness admitting w chest pain/ dyspnea. [place] his arms were heavy. Recently I believe treated with antibiotics for bronchitis. Hospital Course H Course: -admitted w atypical chest pain/ dyspnea. ruled out for acs/ pneumonia/ acute intrathoracic process. stable for discharge home. I spoke with patient's daughter. no arrhythmias while in the hospital; patient symptoms have improved. No focal deficits, loss of speech vision etc. I feel he may have an element of deconditioning which is getting better on its own. No further new treatment on discharge. We could consider stroke risk, or progressive acute coronary syndrome, however risk factor modification would be best bed in therapy [aspirin/smoking/ARB/statin although his age is not ideal for statin]. Daughter is concerned that he is still smoking. I did reinforce the need to quit smoking and will offer nicotine patch. Due to his age comorbidities needs advanced care planning established. A CT shows emphysema. Will arrange for outpatient pulmonary visit in 2 weeks.. A/P 1. At Cp; no ACS; dc home 2. Htn 3. Dyspnea; fatigue/ deconditioning? checked ct 4. Pacemaker St 5. CAD 6. Constipation 7. Recent cough/ antibiotic use 8. CKD 9. Past tobacco 10. Emphysema S: 09/14: better; arms were weak/ heavy? 09/15: no events O: vss PE no pallor. jvd reg no mrg ctab nt bs+ nd nt no r/r/g no edema Home Meds Unable to Obtain Active Prescriptions or Reported Meds Primary Care Provider Care Physician No Primary Time spent on discharge: > 30 minutes Pending Labs Laboratory Tests Test 09/15/18 06:34 White Blood Count 8.2 10^3/ul (4.8-10.8) Red Blood Count 3.86 10^6/ul (4.70-6.10) Hemoglobin 13.0 g/dl (14.0-18.0) Hematocrit 39.4 % (42.0-52.0) Mean Corpuscular Volume 102.1 fl (82.0-101.0) Mean Corpuscular Hemoglobin 33.7 pg (29.0-33.0) Mean Corpuscular Hemoglobin Concent 33.0 g/dl (32.0-37.0) Red Cell Distribution Width 13.0 % (11.5-14.5) Platelet Count 121 10^3/UL (140-415) Mean Platelet Volume 12.2 fl (7.4-10.4) Immature Granulocytes % 0.200 % (0.001-0.429) Neutrophils % 62.5 % (39.0-77.0) Lymphocytes % 25.5 % (15.0-51.0) Monocytes % 8.1 % (0.0-11.0) Eosinophils % 3.2 % (0.0-7.0) Basophils % 0.5 % (0.0-2.0) Nucleated Red Blood Cells % 0.0 /100WBC (0.0-0.0) Immature Granulocytes # 0.020 10^3/ul (0.0-0.031) Neutrophils # 5.1 10^3/ul (1.6-7.5) Lymphocytes # 2.1 10^3/ul (0.8-2.9) Monocytes # 0.7 10^3/ul (0.3-0.9) Eosinophils # 0.3 10^3/ul (0.0-0.5) Basophils # 0.0 10^3/ul (0.0-0.1) Nucleated Red Blood Cells # 0.0 10^3/ul (0.0-0.0) Sodium Level 142 mmol/L (135-144) Potassium Level 4.3 mmol/L (3.5-5.1) Chloride Level 100 mmol/L (97-110) Carbon Dioxide Level 31 mmol/L (21-31) Anion Gap 11 (5-13) Blood Urea Nitrogen 34 mg/dl (7-20) Creatinine 1.18 mg/dl (0.61-1.24) Est Glomerular Filtrat Rate mL/min mL/min (>60) Glucose Level 93 mg/dl (70-220) Calcium Level 9.0 mg/dl (8.4-10.2) Phosphorus Level 3.5 mg/dl (2.5-4.9) Total Bilirubin 0.6 mg/dl (0.2-1.3) Direct Bilirubin 0.00 mg/dl (0.00-0.20) Indirect Bilirubin 0.6 mg/dl (0-1.1) Aspartate Amino Transf (AST/SGOT) 28 IU/L (15-46) Alanine Aminotransferase (ALT/SGPT) 18 IU/L (13-69) Alkaline Phosphatase 56 IU/L (42-121) Total Protein 7.0 g/dl (6.1-8.1) Albumin 3.4 g/dl (3.3-4.9) Globulin 3.60 g/dl (1.3-3.2) Albumin/Globulin Ratio 0.94 NICHOLAS BHAKTA MD Sep 15, 2018 13:25
--- NOTE | 2018-09-15 13:28 | PDOCDIS ---
Discharge Instructions CONDITION [id number] Patient Condition: [id number] Stable HOME CARE INSTRUCTIONS: [id number] Diet Instructions: [id number] Low Fat /Cholesterol ACTIVITY: [id number] Activity Restrictions: [id number] Slowly Increase Activity Do not Drive FOLLOW UP/APPOINTMENTS Follow-up Plan Appointment primary 1 week. OTHER ORDERS: Other Orders: Please ask primary to call medical records for discharge summary. [phone] SCHOOL/WORK RELEASE May return to School/Work on: Sep 15, 2018 NICHOLAS BHAKTA MD Sep 15, 2018 13:28
[2018-09-15] MEDS ORDERED: NICOTINE (14 MG/24 HR) PATCH TRANSDERM PRN (13:30)
[2018-09-15] MEDS ORDERED: ASPIRIN (EC) 81 MG TAB PO SCH (13:30)
[2018-09-15] MEDS ORDERED: ASPI-1044 PO (13:31)
[2018-09-15] MEDS ORDERED: Nicotine (14 Mg/24 Hr) TRANSDERM (13:31)
[2018-09-15] MEDS ORDERED: ACET325T33 PO (13:31)
[2018-09-15] MEDS ORDERED: DOCU-216 PO (13:31)
[2018-09-15] MEDS ORDERED: LISI-313 PO (13:31)
[2018-09-15] MEDS ORDERED: METO-429 PO (13:31)
[2018-09-15] MEDS ORDERED: ALBU90AE INHALATION (13:33)
--- NOTE | 2018-09-15 16:55 | NUR ---
Discharge note: Pt AOx 4, stable for discharge. Tele monitor removed, IV removed with tip intact. Belongings with the patient. Accompanied by daughter via wheelchair. Discharge packet with instructions reviewed with patient's daughter.
== END 2018-09-15 16:59 | disposition home or self-care (01) | DRG 194 ==
LOC: E/R 19:50 → TEL 09-12 00:14
PROVIDERS: ADMIT Family Medicine; ATTEND Internal Medicine
DX: J18.9 Pneumonia, unspecified organism (principal); I50.30 Unspecified diastolic (congestive) heart failure; I13.0 Hypertensive heart and chronic kidney disease with heart failure and stage 1 through stage 4 chronic kidney disease, or unspecified chronic kidney disease; I11.0 Hypertensive heart disease with heart failure; R07.89 Other chest pain; I25.10 Atherosclerotic heart disease of native coronary artery without angina pectoris; K59.00 Constipation, unspecified; N18.9 Chronic kidney disease, unspecified; F17.210 Nicotine dependence, cigarettes, uncomplicated; J43.9 Emphysema, unspecified; Z95.0 Presence of cardiac pacemaker
CPT/HCPCS: 36415; 70450; 71045; 71250; 80048; 80053; 80061; 82550; 82553; 83036; 83605; 83735; 83880; 84100; 84443; 84484; 85025; 93005; 93306; 96374; J0456; J0696; J1650; J1940; J2405

== ENCOUNTER 2018-10-05 18:01 | Inpatient (IN) | payer MEDICARE, OTHER ==
[~2018-10-05] VITALS: Ht 157.5 cm; Wt 80.3 kg
[~2018-10-05 18:01] MED LIST: ACET325T33 PO; ALBU90AE INHALATION; ASPI-1044 PO; DOCU-216 PO; LISI-313 PO; METO-429 PO; Nicotine (14 Mg/24 Hr) TRANSDERM
[2018-10-05] MEDS ORDERED: SOD CHLORIDE 0.9% 500 ML IV STA (21:17)
--- NOTE | 2018-10-05 22:07 | ERD ---
ER Documentation Chief Complaint Chief Complaint non traumatic headache for 2 hour,no neuro def. alert and oriented. HPI 83-year-old Farsi speaking gentleman. An in person signing agent was used. The patient states that he was recently admitted to [facility] for several weeks for possible cardiac issues that he is not sure why. Patient has multiple different complaints including occasional headaches, generalized weakness, fatigue occasionally feeling like he cannot get up. The patient lives at home and is having difficulty caring for himself. Currently denies any chest pain fevers chills or shortness of breath. No pleuritic pain. No slurred speech. He does have a mild frontal headache that is 2 out of 10. ROS All systems reviewed and are negative except as per history of present illness. Medications Home Meds Active Scripts Albuterol Sulfate (Proair Respiclick) 90 Mcg Aer.pow.ba, 2 PUFFS INHALATION Q6 PRN for WHEEZING AND SOB, #1 BOTTLE 2 Refills Prov:NICHOLAS BHAKTA MD 09/15/18 Docusate Sodium (Dok) 100 Mg Capsule, 100 MG PO Q12H PRN for .CONSTIPATION for 1 Day, #1 CAP otc Prov:NICHOLAS BHAKTA MD 09/15/18 Acetaminophen* (Tylenol*) 325 Mg Tablet, 650 MG PO Q6H PRN for .PAIN 1-3 OR TEMP for 1 Day, #1 TAB Prov:NICHOLAS BHAKTA MD 09/15/18 Aspirin Delayed Release (Aspirin Delayed Release) 81 Mg Tablet.dr, 81 MG PO DAILY for 30 Days, #30 Prov:NICHOLAS BHAKTA MD 09/15/18 Metoprolol Tartrate* (Lopressor*) 50 Mg Tab, 50 MG PO BID for 14 Days, #30 TAB Prov:NICHOLAS BHAKTA MD 09/15/18 Lisinopril* (Lisinopril*) 5 Mg Tablet, 5 MG PO DAILY for 14 Days, #14 TAB Prov:NICHOLAS BHAKTA MD 09/15/18 [Nicotine (14 Mg/24 Hr)] 1 PATCH PATCH No Conflict Check, 1 PATCH TRANSDERM DAILY PRN for CONTROL WITHDRAWAL SYMPTOMS for 7 Days otc Prov:NICHOLAS BHAKTA MD 09/15/18 Allergies Allergies: Coded Allergies: No Known Allergy (Unverified , 09/15/18) PMhx/Soc History of Surgery: Yes (gallbladder) Anesthesia Reaction: No Hx Neurological Disorder: No Hx Respiratory Disorders: Yes (CHF) Hx Cardiac Disorders: Yes (HTN, CAD) Hx Psychiatric Problems: No Hx Miscellaneous Medical Probl: No Hx Alcohol Use: No Hx Substance Use: No Hx Tobacco Use: No FmHx Family History: No diabetes Physical Exam Vitals Vital Signs Date Temp Pulse Resp B/P (MAP) Pulse Ox O2 O2 Flow FiO2 Time Delivery Rate 10/05/18 97.6 102 18 154/87 97 High Flow 21:24 (109) 10/05/18 98.0 87 20 145/80 98 18:10 (101) Physical Exam General: Well developed, well nourished, no acute distress Head: Normocephalic, atraumatic. Eyes: Pupils equally reactive, EOM intact ENT: Moist mucous membranes Neck: Supple, no lymphadenopathy Respiratory: Lungs clear bilaterally, no distress Cardiovascular: RRR, no murmurs, rubs, or gallops Abdominal: Soft, non-tender, non-distended, no peritoneal signs : Deferred MSK: No edema, no unilateral swelling, 5/5 strength Neurologic: Alert and oriented, moving all extremities, normal speech, no focal weakness, no cerebellar signs Skin: No rash Psych: Normal mood Result Diagram: 10/05/18214010/05/182137 Results 24 hrs Laboratory Tests Test 10/05/18 21:38 10/05/18 21:41 10/05/18 22:31 Sodium Level 139 mmol/L Potassium Level 3.8 mmol/L Chloride Level 100 mmol/L Carbon Dioxide Level 27 mmol/L Anion Gap 12 Blood Urea Nitrogen 24 mg/dl Creatinine 1.22 mg/dl Est Glomerular Filtrat mL/min Rate mL/min Glucose Level 111 mg/dl Calcium Level 9.2 mg/dl Total Bilirubin 0.4 mg/dl Direct Bilirubin 0.00 mg/dl Indirect Bilirubin 0.4 mg/dl Aspartate Amino Transf (AST/SGOT) 26 IU/L Alanine 21 IU/L Aminotransferase (ALT/SGPT) Alkaline Phosphatase 58 IU/L Troponin I < 0.012 ng/ml Total Protein 7.3 g/dl Albumin 3.8 g/dl Globulin 3.50 g/dl Albumin/Globulin Ratio 1.08 Thyroid Stimulating Hormone (TSH) Pending Free Thyroxine Index 4.79 ug/ml Thyroxine (T4) 12.9 ug/dl Triiodothyronine (T3) Uptake 37.1 % White Blood Count 9.3 10^3/ul Red Blood Count 3.75 10^6/ul Hemoglobin 12.6 g/dl Hematocrit 38.4 % Mean Corpuscular Volume 102.4 fl Mean Corpuscular Hemoglobin 33.6 pg Mean Corpuscular 32.8 g/dl Hemoglobin Concent Red Cell Distribution Width 13.1 % Platelet Count 135 10^3/UL Mean Platelet Volume 12.0 fl Immature Granulocytes % 0.300 % Neutrophils % 69.5 % Lymphocytes % 22.3 % Monocytes % 6.3 % Eosinophils % 1.2 % Basophils % 0.4 % Nucleated Red Blood Cells % 0.0 /100WBC Immature Granulocytes # 0.030 10^3/ul Neutrophils # 6.5 10^3/ul Lymphocytes # 2.1 10^3/ul Monocytes # 0.6 10^3/ul Eosinophils # 0.1 10^3/ul Basophils # 0.0 10^3/ul Nucleated Red Blood Cells # 0.0 10^3/ul Bedside Glucose 103 mg/dL Current Medications Medications Dose Sig/Nazario Start Time Status Last (Trade) Ordered Route PRN Stop Time Admin Dose Reason Admin Sodium 500 ml @ Q1H STAT 10/05/18 DC 10/05/18 Chloride 500 mls/hr IV 21:17 21:17 10/05/18 22:16 Ondansetron 4 mg ER BRIDGE 10/05/18 HCl (Zofran PRN IV 23:00 Inj) NAUSEA/VOMITI 10/06/18 22:59 NG 650 mg ER BRIDGE 10/05/18 Acetaminophen PRN PO 23:00 (Tylenol .MILD PAIN 10/06/18 22:59 Tab) 1-3 OR TEMP Procedures/MDM EKG, MONITORS, & DIAGNOSTIC IMAGING: EKG: I reviewed and interpreted a 12-lead EKG. Rhythm: A. fib, rate controlled ST Changes: No contiguous ST segment elevations T waves: No contiguous T wave inversions Impression: Abnormal EKG Chest x-ray: I reviewed and interpreted a 1 view of the chest Mediastinum: No enlargement Cardiac silhouette: No cardiomegaly Airspace: Clear lung olivares bilaterally without evidence of pneumothorax Bones: No evidence of fracture CT brain: IMPRESSION: 1. No intracranial hemorrhage, mass effect or midline shift. 2. Mild generalized atrophy. Mild to moderate chronic microangiopathic ischemic change. 3. Intracranial atherosclerosis. RPTAT: HHO LAB INTERPRETATION: I reviewed the laboratory testing and it shows [no evidence of acute process] MEDICAL DECISION MAKING: The patient presents with multitude of different complaints including generalized weakness and headache. The patient had recent hospitalization. It appears he is having difficulty caring for himself and lives alone. Differential was extremely broad and includes urinary tract infection, stroke, acute coronary syndrome among others. However this is possibly secondary to gradual decline. 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 ER COURSE: * Patient continues to be well-appearing, asymptomatic and can be admitted for further management of his generalized weakness and social issues. CONSULTATION: [None] DISPOSITION PLAN: Telemetry admission Accepting care team and consultations: I discussed the current laboratory data, diagnostic imaging and emergency care provided. Admitting team: Dr. Mcnair Admitting team indication: Insurance directed Departure Diagnosis: Primary Impression: Headache Headache type: unspecified Headache chronicity pattern: unspecified pattern Intractability: not intractable Qualified Codes: R51 - Headache Additional Impressions: Atrial fibrillation with controlled ventricular rate Generalized weakness Condition: Stable SIMON TRAN MD Oct 05, 2018 22:07
[2018-10-05] MEDS ORDERED: ALBUTEROL 0.083% (NEB) 2.5 MG/3 ML AMP HHN PRN (23:00)
[2018-10-05] MEDS ORDERED: DOCUSATE SODIUM 100 MG CAP PO PRN (23:00)
[2018-10-05] MEDS ORDERED: ONDANSETRON 4 MG INJ IV PRN (23:00)
[2018-10-05] MEDS ORDERED: ACETAMINOPHEN 325 MG TAB PO PRN ×2 (23:00)
[2018-10-05] MEDS ORDERED: NICOTINE (14 MG/24 HR) PATCH TRANSDERM PRN (23:00)
[2018-10-05 23:44] VITALS: PULSE 103
[2018-10-06] VITALS (13 sets, daily range): BP systolic 99–175; BP diastolic 63–86; PULSE 70–98; RESP 18–19; Ht 157.5 cm; Wt 80.3 kg
[2018-10-06] MEDS ORDERED: ONDANSETRON 4 MG INJ IV PRN
[2018-10-06] MEDS ORDERED: MAGNESIUM HYDROXIDE 30ML CUP PO PRN
[2018-10-06] MEDS ORDERED: DOCUSATE SODIUM 100 MG CAP PO PRN
[2018-10-06] MEDS ORDERED: NITROGLYCERIN (SL) 0.4 MG TAB SL PRN
[2018-10-06] MEDS ORDERED: NACL 0.9% 3 ML SYG IV SCH
--- NOTE | 2018-10-06 00:17 | HP ---
Date/Time of Note Date/Time of Note DATE: 10/06/18 TIME: 00:06 Assessment/Plan VTE Prophylaxis SCD applied (from Nsg): Yes Pharmacological prophylaxis: LMWH Assessment/Plan Assessment/Plan 1. Acute headache - CT scan reviewed and no acute abnormalities - If continues to worsen, will pursue further workup - Tylenol PRN for discomfort - BP control needed and will adjust home medications and add PRN 2. generalized weakness - PT/OT consulted - may be due to chronic afib that is rate controlled - Will triage for records from recent [facility] admission 3. HTN - BP elevated and adjustments made to meds 4. h/o Afib - rate controlled - will triage for [facility] records - unsure why not on anticoagulation 5. Diastolic heart failure - compensated - ECHO performed 08/2018 and results noted with EF 50% 6. Diet - Cardiac 7. Disposition - Admit to telemetry for overnight observation and evaluation for headache Result Diagram: 10/05/18214010/05/188 Results 24hrs Laboratory Tests Test 10/05/18 21:38 10/05/18 21:41 10/05/18 22:31 Sodium Level 139 Potassium Level 3.8 Chloride Level 100 Carbon Dioxide Level 27 Anion Gap 12 Blood Urea Nitrogen 24 H Creatinine 1.22 Est Glomerular Filtrat Rate mL/min Glucose Level 111 Calcium Level 9.2 Total Bilirubin 0.4 Direct Bilirubin 0.00 Indirect Bilirubin 0.4 Aspartate Amino Transf (AST/SGOT) 26 Alanine Aminotransferase (ALT/SGPT) 21 Alkaline Phosphatase 58 Troponin I < 0.012 Total Protein 7.3 Albumin 3.8 Globulin 3.50 H Albumin/Globulin Ratio 1.08 Thyroid Stimulating Hormone (TSH) 2.050 Free Thyroxine Index 4.79 H Thyroxine (T4) 12.9 H Triiodothyronine (T3) Uptake 37.1 White Blood Count 9.3 Red Blood Count 3.75 L Hemoglobin 12.6 L Hematocrit 38.4 L Mean Corpuscular Volume 102.4 H Mean Corpuscular Hemoglobin 33.6 H Mean Corpuscular Hemoglobin Concent 32.8 Red Cell Distribution Width 13.1 Platelet Count 135 L Mean Platelet Volume 12.0 H Immature Granulocytes % 0.300 Neutrophils % 69.5 Lymphocytes % 22.3 Monocytes % 6.3 Eosinophils % 1.2 Basophils % 0.4 Nucleated Red Blood Cells % 0.0 Immature Granulocytes # 0.030 Neutrophils # 6.5 Lymphocytes # 2.1 Monocytes # 0.6 Eosinophils # 0.1 Basophils # 0.0 Nucleated Red Blood Cells # 0.0 Bedside Glucose 103 HPI/ROS Admit Date/Time Admit Date/Time Oct 05, 2018 at 22:47 Hx of Present Illness 83 yo M with PMH hypertension, CAD, CHF, atrial fibrillation s/p pacemaker presented to ED complaining of generalized weakness and headache that started 2 hours prior to presentation. Patient is a poor historian and translation service was used. Patient continues to complain of frontal headache with associated dizziness, but denies any nausea, vomiting, chest pain, palpitations, abdominal pain, urinary issues, constipation or diarrhea. Patient was recently discharged from [facility] 09/15 and per patient he was admitted to [facility] recently as well for "cardiac issues." ROS All 12 systems reviewed and pertinent positives as per HPI. All others negative. Constitutional: No disoriented, No nausea Eyes: No discharge ENT: No congestion Respiratory: No cough, No pleuritic pain, No shortness of breath, No sputum, No wheezing Cardiovascular: No chest pain, No lightheadedness, No palpitations Gastrointestinal: No pain, No constipation, No diarrhea, No nausea, No vomiting Genitourinary: no complaints Musculoskeletal: no complaints Skin: No laceration Neurologic: dizziness, headache Endocrine: no complaints Lymphatic: no complaints Psychological: nl mood/affect Immunologic: no complaints PMH/Family/Social Past Medical History Medical History: congestive heart failure, high cholesterol, hypertension, other (atrial fibrillation) Medications Current Medications Aspirin (Halfprin) 81 mg DAILY PO ; Start 10/06/18 at 09:00 Lisinopril (Zestril) 5 mg DAILY PO ; Start 10/06/18 at 09:00 Metoprolol Tartrate (Lopressor) 50 mg BID PO ; Start 10/06/18 at 09:00 Nicotine (Nicoderm 14 Mg/ 24hr) 1 patch DAILY PRN TRANSDERM CONTROL WITHDRAWAL SYMPTOMS; Start 10/05/18 at 23:00 Albuterol (Proventil 0.083% (Neb)) 2.5 mg Q2H RESP THERAPY PRN HHN SHORTNESS OF BREATH; Start 10/05/18 at 23:00 IV Flush (NS 3 ml) 3 ml PER PROTOCOL IV ; Start 10/06/18 at 00:00 Ondansetron HCl (Zofran Inj) 4 mg Q6H PRN IV NAUSEA/VOMITING; Start 10/06/18 at 00:00 Nitroglycerin (Nitroglycerin (Sl Tab) 0.4 Mg) 1 tab Q5M PRN SL .CHEST PAIN; Start 10/06/18 at 00:00 Acetaminophen (Tylenol Tab) 650 mg Q6H PRN PO .PAIN 1-3 OR TEMP; Start 10/06/18 at 00:00 Docusate Sodium (Colace) 100 mg Q12H PRN PO .CONSTIPATION; Start 10/06/18 at 00:00 Magnesium Hydroxide (Milk Of Mag) 30 ml DAILY PRN PO .CONSTIPATION; Start 10/06/18 at 00:00 Enoxaparin Sodium (Lovenox) 30 mg DAILY SC ; Start 10/06/18 at 09:00 Hydralazine HCl (Apresoline) 10 mg Q4H PRN IV SBP >160; Start 10/06/18 at 00:30; Status UNV Coded Allergies: No Known Allergy (Unverified , 09/15/18) Past Surgical History Past Surgical Hx: other (pacer placement) Family History Significant Family History: no pertinent family hx Social History Alcohol Use: none Smoking Status: Unknown if ever smoked Drug Use: none Exam/Review of Systems Vital Signs Vitals Vital Signs Date Temp Pulse Resp B/P (MAP) Pulse Ox O2 O2 Flow FiO2 Time Delivery Rate 10/05/18 103 23:44 10/05/18 20 138/90 97 Room Air 23:00 (106) 10/05/18 97.6 21:24 Exam Exam General: Patient is a pleasant male, currently lying in bed, no acute distress HEENT: Atraumatic, normocephalic. The pupils are equal, round and reactive. Extraocular motor are intact Neck: Supple with full range of motion. No rigidity or meningismus Chest: Nontender Lungs: Clear to auscultation bilaterally no crackles rales or wheezing Heart: Normal S1-S2,irregular rhythm, rate controlled. no murmurs Abdomen: Soft , nontender, nondistended , bowel sounds are present. No guarding no rebound tenderness , No masses or organomegaly. No costovertebral temporal angle mass Extremities: Normal to inspection, no edema no cyanosis Neurologic: Normal mental status, speech normal, cranial nerves II through XII are intact, motor and sensory are intact, Additional Comments Home medications reviewed PROCEDURE: XR Chest. CLINICAL INDICATION: Dyspnea TECHNIQUE: Single frontal chest x-ray. COMPARISON: 09/13/2018 FINDINGS: There is cardiomegaly. There is aortic atherosclerosis. Left-sided dual chamber pacemaker is in place. Loop recorder device is noted overlying the left mid chest. There are slightly diminished lung volumes with scattered bilateral atelectasis. There are no large pleural effusions or pneumothoraces. IMPRESSION: 1. Mild cardiomegaly. Aortic atherosclerosis. 2. Slightly diminished lung volumes with scattered bilateral atelectasis. RPTAT: HHO .Ishmael Roman MD, MD Date Time Electronically viewed and signed by .Ishmael Roman MD, on 10/05/2018 22:39 PROCEDURE: CT Brain without contrast. CLINICAL INDICATION: Headache TECHNIQUE: A CT of the brain was performed on a multidetector CT scanner utilizing axial sections from the skull base through the vertex without contrast. Images were reviewed on a high-resolution PACS workstation. Exam CTDI = 39.6 mGy and the DLP = 634.23 mGy-cm. DICOM images are available. One or more of the following dose reduction techniques were used: Automated exposure control. Adjustment of the mA and/or kV according to patient size. Use of iterative reconstruction technique. COMPARISON: CT head 09/11/2018 FINDINGS: Mild diffuse cerebral and cerebellar atrophy is present. There is proportionate dilatation of the ventricular system and sulci in a symmetric fashion. There is prominence of the extraaxial spaces secondary to atrophy. There is no evidence of intracranial hemorrhage, mass effect or midline shift. No abnormal intra- axial or extra-axial fluid collections are seen. The density of the brain is normal and the rizzo/white matter differentiation is well preserved. Mild to moderate patchy diffuse deep white matter microangiopathic ischemic change is seen. The osseous structures are intact. The paranasal sinuses are clear. Intracranial vascular calcifications are present. IMPRESSION: 1. No intracranial hemorrhage, mass effect or midline shift. 2. Mild generalized atrophy. Mild to moderate chronic microangiopathic ischemic change. 3. Intracranial atherosclerosis. RPTAT: HHO .Ishmael Roman MD, Date Time Electronically viewed and signed by .Ishmael Roman MD, on 10/05/2018 22:36 GOMEZ TRISTAN MD Oct 06, 2018 00:17
[2018-10-06] MEDS ORDERED: hydrALAzine 20 MG INJ IV PRN (00:30)
[2018-10-06] MEDS: ACETAMINOPHEN 325 MG TAB PO PRN ×3 (01:00→15:16)
[2018-10-06] MEDS ORDERED: LORAZEPAM 2 MG INJ IV PRN (02:30)
[2018-10-06] MEDS: traZODone 50 MG TAB PO PRN ×2 (02:47→21:52)
[2018-10-06] MEDS: LISINOPRIL 5 MG TAB PO SCH (08:12)
[2018-10-06] MEDS: ASPIRIN (EC) 81 MG TAB PO SCH (08:12)
[2018-10-06] MEDS: METOPROLOL 25 MG TAB PO SCH ×2 (08:13→21:52)
[2018-10-06] MEDS: ENOXAPARIN 30 MG/0.3 ML SYG SC SCH (08:23)
[2018-10-06] MEDS ORDERED: METOPROLOL 50 MG TAB PO SCH (09:00)
--- NOTE | 2018-10-06 09:57 | PN ---
Date/Time of Note Date/Time of Note DATE: 10/06/18 TIME: 09:50 Assessment/Plan VTE Prophylaxis SCD applied (from [facility] [place]): No SCD contraindicated: other Pharmacological prophylaxis: LMWH Assessment/Plan Hospital Course Assessment/Plan: 83-year-old male who presents with: 1. Acute headache- CT scan reviewed and no acute abnormalities. Blood pressure presently stable, patient still having some mild headache symptoms. -Monitor, continue pain control, if continues to worsen, will pursue further workup - Tylenol PRN for discomfort 2. generalized weakness- PT/OT consulted- may be due to chronic afib that is rate controlled -Continue PT OT as needed, follow-up records from recent [place] admission 3. HTN: Elevated on admission, presently stable -Monitor, continue current meds 4. h/o Afib- rate controlled - will triage for [facility] - unsure why not on anticoagulation 5. Diastolic heart failure- compensated- ECHO performed 08/2018 and results noted with EF 50% -Monitor 6. Diet - Cardiac Result Diagram: 10/06/18 0741 10/06/18 0741 Results 24hrs Laboratory Tests Test 10/05/18 21:38 10/05/18 21:41 10/05/18 22:31 10/06/18 04:53 Sodium Level 139 Potassium Level 3.8 Chloride Level 100 Carbon Dioxide Level 27 Anion Gap 12 Blood Urea Nitrogen 24 H Creatinine 1.22 Est Glomerular Filtrat Rate mL/min Glucose Level 111 Calcium Level 9.2 Total Bilirubin 0.4 Direct Bilirubin 0.00 Indirect Bilirubin 0.4 Aspartate Amino 26 Transf (AST/SGOT) Alanine 21 Aminotransferase (AL T/SGPT) Alkaline Phosphatase 58 Troponin I < 0.012 Total Protein 7.3 Albumin 3.8 Globulin 3.50 H Albumin/Globulin 1.08 Ratio Thyroid Stimulating 2.050 Hormone (TSH) Free Thyroxine Index 4.79 H Thyroxine (T4) 12.9 H Triiodothyronine 37.1 (T3) Uptake White Blood Count 9.3 Red Blood Count 3.75 L Hemoglobin 12.6 L Hematocrit 38.4 L Mean Corpuscular 102.4 H Volume Mean Corpuscular 33.6 H Hemoglobin Mean Corpuscular 32.8 Hemoglobin Concent Red Cell 13.1 Distribution Width Platelet Count 135 L Mean Platelet Volume 12.0 H Immature 0.300 Granulocytes % Neutrophils % 69.5 Lymphocytes % 22.3 Monocytes % 6.3 Eosinophils % 1.2 Basophils % 0.4 Nucleated Red Blood 0.0 Cells % Immature 0.030 Granulocytes # Neutrophils # 6.5 Lymphocytes # 2.1 Monocytes # 0.6 Eosinophils # 0.1 Basophils # 0.0 Nucleated Red Blood 0.0 Cells # Bedside Glucose 103 Urine Color STRAW Urine Clarity CLEAR Urine pH 6.0 Urine Specific 1.[address] [place] Urine Ketones TRACE A Urine Nitrite NEGATIVE Urine Bilirubin NEGATIVE Urine Urobilinogen NEGATIVE Urine Leukocyte NEGATIVE Esterase Urine Hemoglobin NEGATIVE Urine Glucose NEGATIVE Urine Total Protein NEGATIVE Test 10/06/18 07:41 White Blood Count 5.7 # Red Blood Count 3.67 L Hemoglobin 12.5 L Hematocrit 37.2 L Mean Corpuscular 101.4 H Volume Mean Corpuscular 34.1 H Hemoglobin Mean Corpuscular 33.6 Hemoglobin Concent Red Cell 13.1 Distribution Width Platelet Count 123 L Mean Platelet Volume 12.5 H Immature 0.200 Granulocytes % Neutrophils % 69.1 Lymphocytes % 20.5 Monocytes % 8.9 Eosinophils % 1.0 Basophils % 0.3 Nucleated Red Blood 0.0 Cells % Immature 0.010 Granulocytes # Neutrophils # 4.0 Lymphocytes # 1.2 Monocytes # 0.5 Eosinophils # 0.1 Basophils # 0.0 Nucleated Red Blood 0.0 Cells # Sodium Level 140 Potassium Level 4.0 Chloride Level 102 Carbon Dioxide Level 28 Anion Gap 10 Blood Urea Nitrogen 19 Creatinine 1.10 Est Glomerular Filtrat Rate mL/min Glucose Level 110 Calcium Level 8.8 Magnesium Level 2.1 Subjective 24 Hr Interval Summary Free Text/Dictation Patient seen by PT team earlier today, still complaining of headache. Head CT results reviewed. Otherwise no acute events overnight, tolerating diet. Exam/Review of Systems Exam Vitals Vital Signs Date Temp Pulse Resp B/P (MAP) Pulse Ox O2 O2 Flow FiO2 Time Delivery Rate 10/06/18 Nasal 2.0 08:55 Cannula 10/06/18 98 08:49 10/06/18 98.1 18 156/72 95 07:35 (100) Intake and Output 10/05/18 10/05/18 10/06/18 1515:00 23:00 07:00 IntakeIntake Total 500 ml OutputOutput Total 600 ml BalanceBalance -100 ml Exam General: Lying in bed, no acute distress Head: Normocephalic, atraumatic. Eyes: Pupils equally reactive, EOM intact ENT: Moist mucous membranes Neck: Supple, no lymphadenopathy Respiratory: Lungs clear bilaterally, no distress Cardiovascular: RRR, no murmurs, rubs, or gallops Abdominal: Soft, non-tender, non-distended, no peritoneal signs MSK: No edema, no unilateral swelling, 5/5 strength Neurologic: Alert and oriented, moving all extremities, normal speech, no focal weakness, no cerebellar signs Results Results 24hrs Laboratory Tests Test 10/05/18 21:38 10/05/18 21:41 10/05/18 22:31 10/06/18 04:53 Sodium Level 139 Potassium Level 3.8 Chloride Level 100 Carbon Dioxide Level 27 Anion Gap 12 Blood Urea Nitrogen 24 H Creatinine 1.22 Est Glomerular Filtrat Rate mL/min Glucose Level 111 Calcium Level 9.2 Total Bilirubin 0.4 Direct Bilirubin 0.00 Indirect Bilirubin 0.4 Aspartate Amino 26 Transf (AST/SGOT) Alanine 21 Aminotransferase (AL T/SGPT) Alkaline Phosphatase 58 Troponin I < 0.012 Total Protein 7.3 Albumin 3.8 Globulin 3.50 H Albumin/Globulin 1.08 Ratio Thyroid Stimulating 2.050 Hormone (TSH) Free Thyroxine Index 4.79 H Thyroxine (T4) 12.9 H Triiodothyronine 37.1 (T3) Uptake White Blood Count 9.3 Red Blood Count 3.75 L Hemoglobin 12.6 L Hematocrit 38.4 L Mean Corpuscular 102.4 H Volume Mean Corpuscular 33.6 H Hemoglobin Mean Corpuscular 32.8 Hemoglobin Concent Red Cell 13.1 Distribution Width Platelet Count 135 L Mean Platelet Volume 12.0 H Immature 0.300 Granulocytes % Neutrophils % 69.5 Lymphocytes % 22.3 Monocytes % 6.3 Eosinophils % 1.2 Basophils % 0.4 Nucleated Red Blood 0.0 Cells % Immature 0.030 Granulocytes # Neutrophils # 6.5 Lymphocytes # 2.1 Monocytes # 0.6 Eosinophils # 0.1 Basophils # 0.0 Nucleated Red Blood 0.0 Cells # Bedside Glucose 103 Urine Color STRAW Urine Clarity CLEAR Urine pH 6.0 Urine Specific 1.[address] [place] Urine Ketones TRACE A Urine Nitrite NEGATIVE Urine Bilirubin NEGATIVE Urine Urobilinogen NEGATIVE Urine Leukocyte NEGATIVE Esterase Urine Hemoglobin NEGATIVE Urine Glucose NEGATIVE Urine Total Protein NEGATIVE Test 10/06/18 07:41 White Blood Count 5.7 # Red Blood Count 3.67 L Hemoglobin 12.5 L Hematocrit 37.2 L Mean Corpuscular 101.4 H Volume Mean Corpuscular 34.1 H Hemoglobin Mean Corpuscular 33.6 Hemoglobin Concent Red Cell 13.1 Distribution Width Platelet Count 123 L Mean Platelet Volume 12.5 H Immature 0.200 Granulocytes % Neutrophils % 69.1 Lymphocytes % 20.5 Monocytes % 8.9 Eosinophils % 1.0 Basophils % 0.3 Nucleated Red Blood 0.0 Cells % Immature 0.010 Granulocytes # Neutrophils # 4.0 Lymphocytes # 1.2 Monocytes # 0.5 Eosinophils # 0.1 Basophils # 0.0 Nucleated Red Blood 0.0 Cells # Sodium Level 140 Potassium Level 4.0 Chloride Level 102 Carbon Dioxide Level 28 Anion Gap 10 Blood Urea Nitrogen 19 Creatinine 1.10 Est Glomerular Filtrat Rate mL/min Glucose Level 110 Calcium Level 8.8 Magnesium Level 2.1 Medications Medication Current Medications Aspirin (Halfprin) 81 mg DAILY PO Last administered on 10/06/18at 08:12; Admin Dose 81 MG; Start 10/06/18 at 09:00 Lisinopril (Zestril) 5 mg DAILY PO Last administered on 10/06/18at 08:12; Admin Dose 5 MG; Start 10/06/18 at 09:00 Nicotine (Nicoderm 14 Mg/ 24hr) 1 patch DAILY PRN TRANSDERM CONTROL WITHDRAWAL SYMPTOMS; Start 10/05/18 at 23:00 Albuterol (Proventil 0.083% (Neb)) 2.5 mg Q2H RESP THERAPY PRN HHN SHORTNESS OF BREATH; Start 10/05/18 at 23:00 IV Flush (NS 3 ml) 3 ml PER PROTOCOL IV ; Start 10/06/18 at 00:00 Ondansetron HCl (Zofran Inj) 4 mg Q6H PRN IV NAUSEA/VOMITING Last administered on 10/06/18at 04:35; Admin Dose 4 MG; Start 10/06/18 at 00:00 Nitroglycerin (Nitroglycerin (Sl Tab) 0.4 Mg) 1 tab Q5M PRN SL .CHEST PAIN; Start 10/06/18 at 00:00 Acetaminophen (Tylenol Tab) 650 mg Q6H PRN PO .PAIN 1-3 OR TEMP Last administered on 10/06/18at 06:16; Admin Dose 650 MG; Start 10/06/18 at 00:00 Docusate Sodium (Colace) 100 mg Q12H PRN PO .CONSTIPATION; Start 10/06/18 at 00:00 Magnesium Hydroxide (Milk Of Mag) 30 ml DAILY PRN PO .CONSTIPATION; Start 10/06/18 at 00:00 Enoxaparin Sodium (Lovenox) 30 mg DAILY SC Last administered on 10/06/18at 08:23; Admin Dose 30 MG; Start 10/06/18 at 09:00 Hydralazine HCl (Apresoline) 10 mg Q4H PRN IV SBP >160 Last administered on 10/06/18at 00:37; Admin Dose 10 MG; Start 10/06/18 at 00:30 Metoprolol Tartrate (Lopressor) 75 mg BID PO Last administered on 10/06/18at 08:13; Admin Dose 75 MG; Start 10/06/18 at 09:00 Lorazepam (Ativan) 1 mg Q6H PRN IV anxiety, agitation; Start 10/06/18 at 02:30 Trazodone HCl (Desyrel) 50 mg HS MAY REPEAT X 1 PRN PO insomnia Last administered on 10/06/18at 02:47; Admin Dose 50 MG; Start 10/06/18 at 02:30 PARAS ORR Oct 06, 2018 09:56
[2018-10-07] VITALS (10 sets, daily range): BP systolic 107–140; BP diastolic 66–86; PULSE 64–128; RESP 18–19
[2018-10-07] MEDS: ACETAMINOPHEN 325 MG TAB PO PRN ×3 (07:47→20:19)
[2018-10-07] MEDS: ASPIRIN (EC) 81 MG TAB PO SCH (08:04)
[2018-10-07] MEDS: METOPROLOL 25 MG TAB PO SCH (08:04)
[2018-10-07] MEDS: LISINOPRIL 5 MG TAB PO SCH (08:05)
[2018-10-07] MEDS: ENOXAPARIN 30 MG/0.3 ML SYG SC SCH (08:08)
[2018-10-07] MEDS ORDERED: BENZONATATE 100 MG CAP PO PRN (09:30)
[2018-10-07] MEDS: LORATADINE 10 MG TAB PO SCH (12:08)
[2018-10-07] MEDS: GUAIFENESIN LA 600 MG TABSR PO SCH ×2 (12:08→20:19)
[2018-10-07] MEDS: FLUTICASONE 0.05% 16 GM NAS SPRAY NASAL SCH ×2 (13:24→20:19)
--- NOTE | 2018-10-07 16:45 | PN ---
Date/Time of Note Date/Time of Note DATE: 10/07/18 TIME: 16:39 Assessment/Plan VTE Prophylaxis Risk score (from Ns)>0 risk: 4 SCD applied (from [facility] [place] No SCD contraindicated: patient refusal Pharmacological prophylaxis: other Assessment/Plan Assessment/Plan 1. Afib with episodes of RVR - Will increase metoprolol dose and may be contributing to fatigue and weakness 2. Acute headache - Unable to performed MRI due to presence of pacer. if continues with BARNETT will need to consult Neurology for further recommendations - Tylenol PRN - CT scan reviewed and no acute abnormalities - Tylenol PRN for discomfort 3. HTN - improved 4. Generalized weakness - PT/OT on board - Will triage for records from recent [place] admission 5. Diastolic heart failure - compensated - ECHO performed 08/2018 and results noted with EF 50% 6. Disposition - Adjustments made to BB given episodes of RVR - If remains stable, will d/c home tomorrow with HHPT Result Diagram: 10/06/18 0741 10/06/18 0741 Subjective 24 Hr Interval Summary Free Text/Dictation Patient remains lethargic and unsteady with ambulation. Complaining of persistent headache with associated dizziness and blurred vision. Exam/Review of Systems Exam Vitals Vital Signs Date Temp Pulse Resp B/P (MAP) Pulse Ox O2 O2 Flow FiO2 Time Delivery Rate 10/07/18 116 16:08 10/07/18 98.4 19 123/66 95 15:34 (85) 10/07/18 Nasal 2.0 07:00 Cannula Intake and Output 10/06/18 10/06/18 10/07/18 1515:00 23:00 07:00 IntakeIntake Total 800 ml 400 ml OutputOutput Total 300 ml 700 ml BalanceBalance 500 ml -300 ml Exam General: Patient is a pleasant male, fatigued. distress from headache Neck: Supple Chest: Nontender Lungs: Clear to auscultation bilaterally no crackles rales or wheezing Heart: Normal S1-S2, irregular rhythm, tachycardia. no murmurs Abdomen: Soft , nontender, nondistended , bowel sounds are present. No guarding no rebound tenderness Extremities: Normal to inspection, no edema no cyanosis Medications Medication Current Medications Aspirin (Halfprin) 81 mg DAILY PO Last administered on 10/07/18at 08:04; Admin Dose 81 MG; Start 10/06/18 at 09:00 Lisinopril (Zestril) 5 mg DAILY PO Last administered on 10/07/18 08:05; Admin Dose 5 MG; Start 10/06/18 at 09:00 Nicotine (Nicoderm 14 Mg/ 24hr) 1 patch DAILY PRN TRANSDERM CONTROL WITHDRAWAL SYMPTOMS; Start 10/05/18 at 23:00 Albuterol (Proventil 0.083% (Neb)) 2.5 mg Q2H RESP THERAPY PRN HHN SHORTNESS OF BREATH; Start 10/05/18 at 23:00 IV Flush (NS 3 ml) 3 ml PER PROTOCOL IV ; Start 10/06/18 at 00:00 Ondansetron HCl (Zofran Inj) 4 mg Q6H PRN IV NAUSEA/VOMITING Last administered on 10/06/18 04:35; Admin Dose 4 MG; Start 10/06/18 at 00:00 Nitroglycerin (Nitroglycerin (Sl Tab) 0.4 Mg) 1 tab Q5M PRN SL .CHEST PAIN; Start 10/06/18 at 00:00 Acetaminophen (Tylenol Tab) 650 mg Q6H PRN PO .PAIN 1-3 OR TEMP Last ad ministered on 10/07/18 13:49; Admin Dose 650 MG; Start 10/06/18 at 00:00 Docusate Sodium (Colace) 100 mg Q12H PRN PO .CONSTIPATION; Start 10/06/18 at 00:00 Magnesium Hydroxide (Milk Of Mag) 30 ml DAILY PRN PO .CONSTIPATION; Start 10/06/18 at 00:00 Enoxaparin Sodium (Lovenox) 30 mg DAILY SC Last administered on 10/07/18 08:08; Admin Dose 30 MG; Start 10/06/18 at 09:00 Hydralazine HCl (Apresoline) 10 mg Q4H PRN IV SBP >160 Last administered on 10/06/18at 00:37; Admin Dose 10 MG; Start 10/06/18 at 00:30 Metoprolol Tartrate (Lopressor) 75 mg BID PO Last administered on 10/07/18 08:04; Admin Dose 75 MG; Start 10/06/18 at 09:00 Lorazepam (Ativan) 1 mg Q6H PRN IV anxiety, agitation; Start 10/06/18 at 02:30 Trazodone HCl (Desyrel) 50 mg HS MAY REPEAT X 1 PRN PO insomnia Last administered on 10/06/18at 21:52; Admin Dose 50 MG; Start 10/06/18 at 02:30 Guaifenesin (Mucinex) 600 mg BID PO Last administered on 10/07/18 12:08; Admin Dose 600 MG; Start 10/07/18 at 10:00 Benzonatate (Tessalon) 100 mg TID PRN PO cough; Start 10/07/18 at 09:30 Fluticasone Propionate (Flonase 0.05% Nasal) 1 spray BID NASAL Last administered on 10/07/18 13:24; Admin Dose 1 SPRAY; Start 10/07/18 at 12:00 Loratadine (Claritin) 10 mg DAILY PO Last administered on 10/07/18 12:08; Admin Dose 10 MG; Start 10/07/18 at 11:30 GOMEZ TRISTAN MD Oct 07, 2018 16:45
[2018-10-07] MEDS: METOPROLOL 100 MG TAB PO SCH (20:20)
[2018-10-08] VITALS (10 sets, daily range): BP systolic 107–141; BP diastolic 71–83; PULSE 75–102; RESP 16–20
[2018-10-08] MEDS: FLUTICASONE 0.05% 16 GM NAS SPRAY NASAL SCH (08:18)
[2018-10-08] MEDS: LORATADINE 10 MG TAB PO SCH (08:19)
[2018-10-08] MEDS: LISINOPRIL 5 MG TAB PO SCH (08:19)
[2018-10-08] MEDS: METOPROLOL 100 MG TAB PO SCH (08:20)
[2018-10-08] MEDS: GUAIFENESIN LA 600 MG TABSR PO SCH (08:20)
[2018-10-08] MEDS: ASPIRIN (EC) 81 MG TAB PO SCH (08:20)
[2018-10-08] MEDS: ENOXAPARIN 30 MG/0.3 ML SYG SC SCH (08:24)
--- NOTE | 2018-10-08 09:11 | PN ---
Date/Time of Note Date/Time of Note DATE: 10/08/18 TIME: 09:11 Assessment/Plan VTE Prophylaxis Risk score (from Ns)>0 risk: 4 SCD applied (from Ns): No SCD contraindicated: low risk/ambulating Pharmacological prophylaxis: LMWH Lines/Catheters IV Catheter Type (from [facility]): [place]ine [place] Assessment/Plan Assessment/Plan 1. Afib with episodes of RVR- resolved - Discussed with daughter patient will need to follow up with [employer] in 1- 2 weeks 2. Acute headache- sinus related - Claritin and Flonase on board - Tylenol PRN - CT scan reviewed and no intracerebral abnormalities appreciated 3. HTN - improved 4. Generalized weakness - PT/OT on board - Will triage for records from recent [place] admission - B12 levels borderline low and will start supplementation 5. Diastolic heart failure - compensated - ECHO performed 08/2018 and results noted with EF 50% 6. Mild iron deficiency anemia - will start on iron supplements 7. Disposition - Medically stable for discharge home Result Diagram: 10/06/18 0741 10/06/18 0741 Subjective 24 Hr Interval Summary Free Text/Dictation Patient is complaining of pressure in maxillary sinus area with mild headache. Walked with PT this am. Still fatigued but no acute issues. Exam/Review of Systems Exam Vitals Vital Signs Date Temp Pulse Resp B/P (MAP) Pulse Ox O2 O2 Flow FiO2 Time Delivery Rate 10/08/18 102 08:12 10/08/18 Nasal 2.0 08:00 Cannula 10/08/18 98.0 20 133/83 93 07:31 (100) Intake and Output 10/07/18 10/07/18 10/08/18 1515:00 23:00 07:00 IntakeIntake Total 500 ml 250 ml OutputOutput Total 600 ml 950 ml BalanceBalance -100 ml -700 ml Exam General: Patient is a pleasant male, fatigued. Neck: Supple Chest: Nontender Lungs: Clear to auscultation bilaterally no crackles rales or wheezing Heart: Normal S1-S2, irregular rhythm, rate controlled. no murmurs Abdomen: Soft , nontender, nondistended , bowel sounds are present. No guarding no rebound tenderness Extremities: Normal to inspection, no edema no cyanosis Medications Medication Current Medications Aspirin (Halfprin) 81 mg DAILY PO Last administered on 2/21/19at 08:20; Admin Dose 81 MG; Start 10/06/18 at 09:00 Lisinopril (Zestril) 5 mg DAILY PO Last administered on 10/08/18 08:19; Admin Dose 5 MG; Start 10/06/18 at 09:00 Nicotine (Nicoderm 14 Mg/ 24hr) 1 patch DAILY PRN TRANSDERM CONTROL WITHDRAWAL SYMPTOMS; Start 10/05/18 at 23:00 Albuterol (Proventil 0.083% (Neb)) 2.5 mg Q2H RESP THERAPY PRN HHN SHORTNESS OF BREATH; Start 10/05/18 at 23:00 IV Flush (NS 3 ml) 3 ml PER PROTOCOL IV ; Start 10/06/18 at 00:00 Ondansetron HCl (Zofran Inj) 4 mg Q6H PRN IV NAUSEA/VOMITING Last administered on 10/06/18 04:35; Admin Dose 4 MG; Start 10/06/18 at 00:00 Nitroglycerin (Nitroglycerin (Sl Tab) 0.4 Mg) 1 tab Q5M PRN SL .CHEST PAIN; Start 10/06/18 at 00:00 Acetaminophen (Tylenol Tab) 650 mg Q6H PRN PO .PAIN 1-3 OR TEMP Last administered on 10/07/18 20:19; Admin Dose 650 MG; Start 10/06/18 at 00:00 Docusate Sodium (Colace) 100 mg Q12H PRN PO .CONSTIPATION; Start 10/06/18 at 00:00 Magnesium Hydroxide (Milk Of Mag) 30 ml DAILY PRN PO .CONSTIPATION; Start 10/06/18 at 00:00 Enoxaparin Sodium (Lovenox) 30 mg DAILY SC Last administered on 10/08/18 08:24; Admin Dose 30 MG; Start 10/06/18 at 09:00 Hydralazine HCl (Apresoline) 10 mg Q4H PRN IV SBP >160 Last administered on 10/06/18 00:37; Admin Dose 10 MG; Start 10/06/18 at 00:30 Lorazepam (Ativan) 1 mg Q6H PRN IV anxiety, agitation; Start 10/06/18 at 02:30 Trazodone HCl (Desyrel) 50 mg HS MAY REPEAT X 1 PRN PO insomnia Last administered on 10/06/18 21:52; Admin Dose 50 MG; Start 10/06/18 at 02:30 Guaifenesin (Mucinex) 600 mg BID PO Last administered on 10/08/18 08:20; Admin Dose 600 MG; Start 10/07/18 at 10:00 Benzonatate (Tessalon) 100 mg TID PRN PO cough; Start 10/07/18 at 09:30 Fluticasone Propionate (Flonase 0.05% Nasal) 1 spray BID NASAL Last administered on 10/08/18 08:18; Admin Dose 1 SPRAY; Start 10/07/18 at 12:00 Loratadine (Claritin) 10 mg DAILY PO Last administered on 10/08/18 08:19; Admin Dose 10 MG; Start 10/07/18 at 11:30 Metoprolol Tartrate (Lopressor) 100 mg BID PO Last administered on 10/08/18 08:20; Admin Dose 100 MG; Start 10/07/18 at 21:00 GOMEZ TRISTAN MD Oct 08, 2018 09:11
[2018-10-08] MEDS ORDERED: FER325 PO (14:56)
[2018-10-08] MEDS ORDERED: FLUT16SP17 NASAL (14:56)
[2018-10-08] MEDS ORDERED: LORA10TA3 PO (14:56)
[2018-10-08] MEDS ORDERED: CYANOCOBALAMIN 500 MCG TAB PO SCH (15:00)
[2018-10-08] MEDS ORDERED: FERROUS SULFATE (EC) 325 MG TAB PO SCH (15:00)
[2018-10-08] MEDS ORDERED: CYAN500T46 PO (15:00)
--- NOTE | 2018-10-08 15:15 | PDOCDIS ---
Discharge Instructions DIAGNOSIS Discharge Diagnosis 1. Atrial fibrillation 2. Acute headache secondary to acute rhinosinusitis 3. HTN 4. Generalized weakness 5. Diastolic heart failure 6. Mild iron deficiency anemia 7. Mild B12 deficiency CONDITION [id number] Patient Condition: [id number] Stable HOME CARE INSTRUCTIONS: [id number] Diet Instructions: [id number] Low Fat /Cholesterol FOLLOW UP/APPOINTMENTS Follow-up Plan 1. Follow up with your primary care physician in 1 week 2. Follow up with your Cardiology in 1-2 weeks 3. Continue all medications as prescribed 4. Take Claritin daily and use Flonase nasal spray as needed for sinus pressure and congestion 5. Take iron supplements daily and make sure to keep well hydrated and increase fiber intake to avoid constipation 6. Take B12 supplements every night for 6 months and follow up with your PCP to determine if you need to continue on these supplements 7. If symptoms worsen, please go to your nearest emergency department GOMEZ TRISTAN MD Oct 08, 2018 15:15
--- NOTE | 2018-10-08 17:59 | DS ---
Date/Time of Note Date/Time of Note DATE: 10/08/18 TIME: 17:59 Discharge Summary Admission/Discharge Info Admit Date/Time Oct 07, 2018 at 16:53 Discharge Date/Time Oct 08, 2018 at 17:04 Discharge Diagnosis 1. Atrial fibrillation 2. Acute headache secondary to acute rhinosinusitis 3. HTN 4. Generalized weakness 5. Diastolic heart failure 6. Mild iron deficiency anemia 7. Mild B12 deficiency Patient Condition: Stable Procedures PROCEDURE: XR Chest. CLINICAL INDICATION: Dyspnea TECHNIQUE: Single frontal chest x-ray. COMPARISON: 09/13/2018 FINDINGS: There is cardiomegaly. There is aortic atherosclerosis. Left-sided dual chamber pacemaker is in place. Loop recorder device is noted overlying the left mid chest. There are slightly diminished lung volumes with scattered bilateral atelectasis. There are no large pleural effusions or pneumothoraces. IMPRESSION: 1. Mild cardiomegaly. Aortic atherosclerosis. 2. Slightly diminished lung volumes with scattered bilateral atelectasis. RPTAT: HHO .Ishmael Roman MD, MD Date Time Electronically viewed and signed by .Ishmael Roman MD, MD on 10/05/2018 22:39 PROCEDURE: CT Brain without contrast. CLINICAL INDICATION: Headache TECHNIQUE: A CT of the brain was performed on a multidetector CT scanner utilizing axial sections from the skull base through the vertex without contrast. Images were reviewed on a high-resolution PACS workstation. Exam CTDI = 39.6 mGy and the DLP = 634.23 mGy-cm. DICOM images are available. One or more of the following dose reduction techniques were used: Automated exposure control. Adjustment of the mA and/or kV according to patient size. Use of iterative reconstruction technique. COMPARISON: CT head 09/11/2018 FINDINGS: Mild diffuse cerebral and cerebellar atrophy is present. There is proportionate dilatation of the ventricular system and sulci in a symmetric fashion. There is prominence of the extraaxial spaces secondary to atrophy. There is no evidence of intracranial hemorrhage, mass effect or midline shift. No abnormal intra- axial or extra-axial fluid collections are seen. The density of the brain is normal and the rizzo/white matter differentiation is well preserved. Mild to moderate patchy diffuse deep white matter microangiopathic ischemic change is se en. The osseous structures are intact. The paranasal sinuses are clear. Intracranial vascular calcifications are present. IMPRESSION: 1. No intracranial hemorrhage, mass effect or midline shift. 2. Mild generalized atrophy. Mild to moderate chronic microangiopathic ischemic change. 3. Intracranial atherosclerosis. RPTAT: HHO .Ishmael Roman MD, MD Date Time Electronically viewed and signed by .Ishmael Roman MD, MD on 10/05/2018 22:36 Hx of Present Illness 83 yo M with PMH hypertension, CAD, CHF, atrial fibrillation s/p pacemaker presented to ED complaining of generalized weakness and headache that started 2 hours prior to presentation. Patient is a poor historian and translation service was used. Patient continues to complain of frontal headache with associated dizziness, but denies any nausea, vomiting, chest pain, palpitations, abdominal pain, urinary issues, constipation or diarrhea. Patient was recently discharged from [facility] 09/15 and per patient he was admitted to [facility] recently as well for "cardiac issues." Hospital Course Patient was treated for acute rhinosinusitis which was seen on CT scan head and determined to be etiology of headache. No other acute abnormalities were found on CT scan and MRI was unable to be performed given PPM. Patients iron, B12, and Vitamin D levels were checked due to persistent fatigued and iron as well as B12 supplements were started. Patient was working well with PT and CM arranged for HHPT. Patient was discharged home in stable discomfort. Home Meds Active Scripts Cyanocobalamin* (Vitamin B12*) 500 Mcg Tab, 1000 MCG PO DAILY for 30 Days, #60 TAB 1 Refill Prov:GOMEZ TRISTAN MD 10/08/18 Fluticasone Propionate* (Fluticasone Propionate* Nasal) 50 Mcg/[place] - 16 Gm [place].susp, 1 SPRAY NASAL BID for 30 Days, #1 BOT 1 Refill Prov:GOMEZ TRISTAN MD 10/08/18 Ferrous Sulfate* (Ferrous Sulfate*) 325 Mg Tabec, 325 MG PO DAILY for 30 Days, #30 TAB 6 Refills Prov:GOMEZ TRISTAN MD 10/08/18 Loratadine* (Loratadine*) 10 Mg Tablet, 10 MG PO DAILY for 30 Days, #30 TAB Prov:GOMEZ TRISTAN MD 10/08/18 Albuterol Sulfate (Proair Respiclick) 90 Mcg Aer.pow.ba, 2 PUFFS INHALATION Q6 PRN for WHEEZING AND SOB, #1 BOTTLE 2 Refills Prov:NICHOLAS BHAKTA MD 09/15/18 Docusate Sodium (Dok) 100 Mg Capsule, 100 MG PO Q12H PRN for .CONSTIPATION for 1 Day, #1 CAP otc Prov:NICHOLAS BHAKTA MD 09/15/18 Acetaminophen* (Tylenol*) 325 Mg Tablet, 650 MG PO Q6H PRN for .PAIN 1-3 OR TEMP for 1 Day, #1 TAB Prov:NICHOLAS BHAKTA MD 09/15/18 Aspirin Delayed Release (Aspirin Delayed Release) 81 Mg Tablet.dr, 81 MG PO DAILY for 30 Days, #30 Prov:NICHOLAS BHAKTA MD 09/15/18 Metoprolol Tartrate* (Lopressor*) 50 Mg Tab, 50 MG PO BID for 14 Days, #30 TAB Prov:NICHOLAS BHAKTA MD 09/15/18 Lisinopril* (Lisinopril*) 5 Mg Tablet, 5 MG PO DAILY for 14 Days, #14 TAB Prov:NICHOLAS BHAKTA MD 09/15/18 [Nicotine (14 Mg/24 Hr)] 1 PATCH PATCH No Conflict Check, 1 PATCH TRANSDERM DAILY PRN for CONTROL WITHDRAWAL SYMPTOMS for 7 Days otc Prov:NICHOLAS BHAKTA MD 09/15/18 Follow-up Plan 1. Follow up with your primary care physician in 1 week 2. Follow up with your Cardiology in 1-2 weeks 3. Continue all medications as prescribed 4. Take Claritin daily and use Flonase nasal spray as needed for sinus pressure and congestion 5. Take iron supplements daily and make sure to keep well hydrated and increase fiber intake to avoid constipation 6. Take B12 supplements every night for 6 months and follow up with your PCP to determine if you need to continue on these supplements 7. If symptoms worsen, please go to your nearest emergency department Primary Care Provider Care Physician No Primary Time spent on discharge: > 30 minutes Pending Labs Laboratory Tests Test 10/08/18 11:09 White Blood Count 8.9 10^3/ul (4.8-10.8) Red Blood Count 3.60 10^6/ul (4.70-6.10) Hemoglobin 12.4 g/dl (14.0-18.0) Hematocrit 36.7 % (42.0-52.0) Mean Corpuscular Volume 101.9 fl (82.0-101.0) Mean Corpuscular Hemoglobin 34.4 pg (29.0-33.0) Mean Corpuscular Hemoglobin Concent 33.8 g/dl (32.0-37.0) Red Cell Distribution Width 13.2 % (11.5-14.5) Platelet Count 133 10^3/UL (140-415) Mean Platelet Volume 12.0 fl (7.4-10.4) Immature Granulocytes % 0.300 % (0.001-0.429) Neutrophils % 77.0 % (39.0-77.0) Lymphocytes % 15.1 % (15.0-51.0) Monocytes % 6.4 % (0.0-11.0) Eosinophils % 0.8 % (0.0-7.0) Basophils % 0.4 % (0.0-2.0) Nucleated Red Blood Cells % 0.0 /100WBC (0.0-0.0) Immature Granulocytes # 0.030 10^3/ul (0.0-0.031) Neutrophils # 6.9 10^3/ul (1.6-7.5) Lymphocytes # 1.4 10^3/ul (0.8-2.9) Monocytes # 0.6 10^3/ul (0.3-0.9) Eosinophils # 0.1 10^3/ul (0.0-0.5) Basophils # 0.0 10^3/ul (0.0-0.1) Nucleated Red Blood Cells # 0.0 10^3/ul (0.0-0.0) Sodium Level 137 mmol/L (135-144) Potassium Level 4.6 mmol/L (3.5-5.1) Chloride Level 104 mmol/L (97-110) Carbon Dioxide Level 31 mmol/L (21-31) Anion Gap 2 (5-13) Blood Urea Nitrogen 22 mg/dl (7-20) Creatinine 1.22 mg/dl (0.61-1.24) Glucose Level 93 mg/dl (70-220) Calcium Level 9.1 mg/dl (8.4-10.2) Phosphorus Level 3.1 mg/dl (2.5-4.9) Iron Level 45 ug/dl (35-150) Total Iron Binding Capacity 229 ug/dl (241-421) Percent Iron Saturation 20 % SAT (22-52) Albumin 3.3 g/dl (3.3-4.9) Vitamin B12 Level 312 pg/ml (239-931) Vitamin D 1,25-Dihydroxy 57.4 ng/ml (30-100) Folate 15.3 ng/ml (2.8-20.0) GOMEZ TRISTAN MD Oct 08, 2018 17:59
== END 2018-10-08 17:04 | disposition home health service (06) | DRG 310 ==
LOC: E/R 18:01 → TEL 22:47 → OBSVTOIN 10-07 16:53
PROVIDERS: ADMIT Internal Medicine; ATTEND Internal Medicine
DX: I48.91 Unspecified atrial fibrillation (principal); R51 Headache; R53.1 Weakness; D50.9 Iron deficiency anemia, unspecified; E53.8 Deficiency of other specified B group vitamins; I11.0 Hypertensive heart disease with heart failure; I50.9 Heart failure, unspecified; Z79.4 Long term (current) use of insulin
CPT/HCPCS: 70450; 71045; 80048; 80053; 80069; 81003; 82306; 82607; 82652; 82746; 82962; 83540; 83735; 84436; 84443; 84479; 84484; 85025; 93005; 97116; 97161; 97167; 97530; 97535; G0378; J0360; J1650; J2405; J7040

== ENCOUNTER 2018-11-06 04:57 | Inpatient (IN) | payer MEDICARE, OTHER ==
[2018-11-06] VITALS (10 sets, daily range): BP systolic 120–143; BP diastolic 63–87; PULSE 74–94; RESP 17–19; Ht 167.6 cm; Wt 79.2 kg
[~2018-11-06] VITALS: Ht 167.6 cm; Wt 79.2 kg
[~2018-11-06 04:57] MED LIST changes: +CYAN500T46 PO; +FER325 PO; +FLUT16SP17 NASAL; +LORA10TA3 PO
[2018-11-06] MEDS ORDERED: ASPIRIN 81 MG TAB PO STA (05:07)
[2018-11-06] MEDS ORDERED: ALBUTEROL 0.083% (NEB) 2.5 MG/3 ML AMP NEB STA (05:07)
[2018-11-06] MEDS ORDERED: IPRATROPIUM (NEB) 0.5 MG/2.5 ML AMP NEB STA (05:07)
[2018-11-06] MEDS ORDERED: FUROSEMIDE 40 MG INJ IV ONE (06:00)
[2018-11-06] MEDS ORDERED: BISACODYL (EC) 5 MG TAB PO PRN (06:00)
[2018-11-06] MEDS ORDERED: NACL 0.9% 3 ML SYG IV SCH (06:00)
[2018-11-06] MEDS ORDERED: HEPARIN 5,000 UNIT/1 ML VIAL SC SCH (06:00)
[2018-11-06] MEDS ORDERED: DOCUSATE SODIUM 100 MG CAP PO PRN ×2 (06:00)
[2018-11-06] MEDS ORDERED: NITROGLYCERIN 2% 1 GM OINT PKT TD STA (06:06)
[2018-11-06] MEDS ORDERED: FUROSEMIDE 40 MG INJ IV STA (06:06)
--- NOTE | 2018-11-06 06:11 | ERD ---
ER Documentation Chief Complaint Chief Complaint BIB R81. AP, BARNETT X 2 DAYS. 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 The patient presents with shortness of breath. Patient has a difficult history and notes multiple systems involved but his main complaint is shortness of breath over the past 24- 48 hours worse when laying flat. The patient does note intermittent but chronic abdominal pain, intermittent but chronic headaches that are unchanged from baseline. He may have had chest pain over the past 24 hours but has no chest pain currently. He denies any fevers or chills, no productive cough. ROS All systems reviewed and are negative except as per history of present illness. Medications Home Meds Active Scripts Cyanocobalamin* (Vitamin B12*) 500 Mcg Tab, 1000 MCG PO DAILY for 30 Days, #60 TAB 1 Refill Prov:GOMEZ TRISTAN MD 10/08/18 Fluticasone Propionate* (Fluticasone Propionate* Nasal) 50 Mcg/[place] - 16 Gm [place].susp, 1 SPRAY NASAL BID for 30 Days, #1 BOT 1 Refill Prov:GOMEZ TRISTAN MD 10/08/18 Ferrous Sulfate* (Ferrous Sulfate*) 325 Mg Tabec, 325 MG PO DAILY for 30 Days, #30 TAB 6 Refills Prov:GOMEZ TRISTAN MD 10/08/18 Loratadine* (Loratadine*) 10 Mg Tablet, 10 MG PO DAILY for 30 Days, #30 TAB Prov:GOMEZ TRISTAN MD 10/08/18 Albuterol Sulfate (Proair Respiclick) 90 Mcg Aer.pow.ba, 2 PUFFS INHALATION Q6 PRN for WHEEZING AND SOB, #1 BOTTLE 2 Refills Prov:NICHOLAS BHAKTA MD 09/15/18 Docusate Sodium (Dok) 100 Mg Capsule, 100 MG PO Q12H PRN for .CONSTIPATION for 1 Day, #1 CAP otc Prov:NICHOLAS BHAKTA MD 09/15/18 Acetaminophen* (Tylenol*) 325 Mg Tablet, 650 MG PO Q6H PRN for .PAIN 1-3 OR TEMP for 1 Day, #1 TAB Prov:NICHOLAS BHAKTA MD 09/15/18 Aspirin Delayed Release (Aspirin Delayed Release) 81 Mg Tablet.dr, 81 MG PO DAILY for 30 Days, #30 Prov:NICHOLAS BHAKTA MD 09/15/18 Metoprolol Tartrate* (Lopressor*) 50 Mg Tab, 50 MG PO BID for 14 Days, #30 TAB Prov:NICHOLAS BHAKTA MD 09/15/18 [Nicotine (14 Mg/24 Hr)] 1 PATCH PATCH No Conflict Check, 1 PATCH TRANSDERM DAILY PRN for CONTROL WITHDRAWAL SYMPTOMS for 7 Days otc Prov:NICHOLAS BHAKTA MD 09/15/18 Discontinued Scripts Lisinopril* (Lisinopril*) 5 Mg Tablet, 5 MG PO DAILY for 14 Days, #14 TAB Prov:NICHOLAS BHAKTA MD 09/15/18 Allergies Allergies: Coded Allergies: No Known Allergy (Unverified , 09/15/18) PMhx/Soc History of Surgery: Yes (PACEMAKER PLACEMENT, GALLBLADDER SX) Anesthesia Reaction: No Hx Neurological Disorder: No Hx Respiratory Disorders: No (PNA) Hx Cardiac Disorders: Yes (HTN, CHF, CAD) Hx Psychiatric Problems: No Hx Miscellaneous Medical Probl: Yes (HTN , A-FIB , DIASTOLIC HEART FAILURE .) Hx Alcohol Use: Yes Hx Substance Use: No Hx Tobacco Use: No Smoking Status: Never smoker FmHx Family History: No diabetes Physical Exam Vitals Vital Signs Date Temp Pulse Resp B/P (MAP) Pulse Ox O2 O2 Flow FiO2 Time Delivery Rate 11/06/18 76 20 98 21 05:25 11/06/18 Nasal 05:15 Cannula 11/06/18 98.7 71 18 150/98 98 Room Air 05:15 (115) 11/06/18 98.7 94 17 158/101 98 05:02 (120) Physical Exam General: Well developed, well nourished, no acute distress Head: Normocephalic, atraumatic. Eyes: Pupils equally reactive, EOM intact ENT: Moist mucous membranes Neck: Supple, no lymphadenopathy Respiratory: Wheezing and slight rales at the bases, no distress Cardiovascular: Irregular, no murmurs, rubs, or gallops Abdominal: Soft, non-tender, non-distended, no peritoneal signs : Deferred MSK: Mild lower extremity pitting edema, no unilateral swelling, 5/5 strength Neurologic: Alert and oriented, moving all extremities, normal speech, no focal weakness, no cerebellar signs Skin: No rash Psych: Normal mood Result Diagram: 11/06/18 0520 11/06/18 0520 Results 24 hrs Laboratory Tests Test 11/06/18 05:20 White Blood Count 7.2 10^3/ul Red Blood Count 3.92 10^6/ul Hemoglobin 13.5 g/dl Hematocrit 39.9 % Mean Corpuscular Volume 101.8 fl Mean Corpuscular Hemoglobin 34.4 pg Mean Corpuscular Hemoglobin Concent 33.8 g/dl Red Cell Distribution Width 13.0 % Platelet Count 127 10^3/UL Mean Platelet Volume 13.0 fl Immature Granulocytes % 0.400 % Neutrophils % 70.9 % Lymphocytes % 18.8 % Monocytes % 8.1 % Eosinophils % 1.4 % Basophils % 0.4 % Nucleated Red Blood Cells % 0.0 /100WBC Immature Granulocytes # 0.030 10^3/ul Neutrophils # 5.1 10^3/ul Lymphocytes # 1.4 10^3/ul Monocytes # 0.6 10^3/ul Eosinophils # 0.1 10^3/ul Basophils # 0.0 10^3/ul Nucleated Red Blood Cells # 0.0 10^3/ul Prothrombin Time 19.0 Sec Prothrombin Time Ratio 1.5 INR International Normalized Ratio 1.58 Activated Partial Thromboplast Time 37.2 Sec Sodium Level 141 mmol/L Potassium Level 4.0 mmol/L Chloride Level 105 mmol/L Carbon Dioxide Level 26 mmol/L Anion Gap 10 Blood Urea Nitrogen 17 mg/dl Creatinine 1.16 mg/dl Est Glomerular Filtrat Rate mL/min mL/min Glucose Level 117 mg/dl Calcium Level 9.3 mg/dl Troponin I 0.018 ng/ml B-Type Natriuretic Peptide 3290 PG/ML Current Medications Medications Dose Sig/Nazario Start Time Status Last (Trade) Ordered Route PRN Stop Time Admin Dose Reason Admin Aspirin 162 mg ONCE STAT 11/06/18 DC 11/06/18 (Aspirin) PO 05:07 05:29 11/06/18 05:09 Albuterol 2.5 mg ONCE STAT 11/06/18 DC 11/06/18 (Proventil NEB 05:07 05:25 0.083% (Neb)) 11/06/18 05:09 Ipratropium 0.5 mg ONCE STAT 11/06/18 DC 11/06/18 [place] NEB 05:07 05:25 (Atrovent 11/06/18 05:09 0.02% (Neb)) IV Flush 3 ml PER 11/06/18 (NS 3 ml) PROTOCOL IV 06:00 Ondansetron 4 mg Q6H PRN 11/06/18 HCl (Zofran IV 06:00 Inj) NAUSEA/VOMITI NG Aspirin 81 mg DAILY PO 11/06/18 (Aspirin) 09:00 1 tab Q5M PRN 11/06/18 Nitroglycerin SL .CHEST 06:00 PAIN (Nitroglyceri n (Sl Tab) 0.4 Mg) 650 mg Q6H PRN 11/06/18 Acetaminophen PO .PAIN 1-3 06:00 (Tylenol OR TEMP Tab) Docusate 100 mg Q12H PRN 11/06/18 Sodium PO 06:00 (Colace) .CONSTIPATION Bisacodyl 5 mg DAILY PRN 11/06/18 (Dulcolax) PO 06:00 .CONSTIPATION Heparin 5,000 unit Q8 SC 11/06/18 Sodium 06:00 (Porcine) (Heparin (5000 Units/1ml)) Aspirin 81 mg DAILY PO 11/06/18 (Halfprin) 09:00 Docusate 100 mg Q12H PRN 11/06/18 Sodium PO 06:00 (Colace) .CONSTIPATION Ferrous 325 mg DAILY PO 11/06/18 UNV Sulfate 09:00 (Ferrous Sulfate (Ec)) Fluticasone 1 spray BID NASAL 11/06/18 UNV Propionate 09:00 (Flonase 0.05% Nasal) Loratadine 10 mg DAILY PO 11/06/18 UNV (Claritin) 09:00 Furosemide 40 mg ONCE ONCE 11/06/18 DC (Lasix) IV 06:00 11/06/18 06:05 1 inch ONCE STAT 11/06/18 DC Nitroglycerin TD 06:06 11/06/18 06:07 (Nitroglyceri n 2% Oint) Furosemide 40 mg ONCE STAT 11/06/18 DC (Lasix) IV 06:06 11/06/18 06:07 Procedures/MDM EKG, MONITORS, & DIAGNOSTIC IMAGING: EKG: I reviewed and interpreted a 12-lead EKG. Rhythm: A. fib, rate controlled ST Changes: No contiguous ST segment elevations T waves: No contiguous T wave inversions Impression: Abnormal EKG Chest x-ray: I reviewed and interpreted a 1 view of the chest Mediastinum: No enlargement Cardiac silhouette: Mild cardiomegaly Airspace: Interstitial process bilaterally consistent with pulmonary edema Bones: No evidence of fracture LAB INTERPRETATION: I reviewed the laboratory testing and it shows negative troponin but elevated BNP MEDICAL DECISION MAKING: Clinical signs and symptoms are pointing more toward CHF that would be a new diagnosis for this patient. Patient has wheezing and rhonchi with lower extremity edema. Lower concern for pneumonia. No prior history of COPD or asthma. Acute bronchitis could be considered but no febrile illness. Patient would warrant laboratory testing and evaluation for cardiac etiology ER COURSE: * Patient with mild improvement with breathing treatment. Aspirin, nitro, Lasix provided. * At this point no indication for nitroglycerin drip, positive pressure ventilation. * Inpatient hospitalization for further workup would be appropriate. CONSULTATION: [None] DISPOSITION PLAN: Accepting care team and consultations: I discussed the current laboratory data, diagnostic imaging and emergency care provided. Admitting team: Dr. Strong Admitting team indication: Insurance directed Departure Diagnosis: Primary Impression: Acute pulmonary edema Additional Impression: Shortness of breath Condition: Stable SIMON TRAN MD Nov 06, 2018 06:11
[2018-11-06] MEDS: ONDANSETRON 4 MG INJ IV PRN (06:15)
[2018-11-06] MEDS: NITROGLYCERIN (SL) 0.4 MG TAB SL PRN (06:15)
[2018-11-06] MEDS ORDERED: ASPIRIN (EC) 81 MG TAB PO SCH (09:00)
[2018-11-06] MEDS: FLUTICASONE 0.05% 16 GM NAS SPRAY NASAL SCH ×2 (10:37→21:37)
[2018-11-06] MEDS: FERROUS SULFATE (EC) 325 MG TAB PO SCH (10:37)
[2018-11-06] MEDS: ASPIRIN 81 MG TAB PO SCH (10:38)
[2018-11-06] MEDS: LORATADINE 10 MG TAB PO SCH (10:38)
[2018-11-06] MEDS: ACETAMINOPHEN 325 MG TAB PO PRN ×2 (11:03→17:22)
--- NOTE | 2018-11-06 13:18 | HP ---
Date/Time of Note Date/Time of Note DATE: 11/06/18 TIME: 13:04 Assessment/Plan VTE Prophylaxis Pharmacological prophylaxis: LMWH Lines/Catheters IV Catheter Type (from Nrs): Saline Lock Assessment/Plan Hospital Course 1. Acute on chronic systolic and diastolic heart failure exacerbation Recent echo shows an EF of 50% with diastolic heart failure Chest x-ray with pulmonary edema and BNP is elevated Lasix 40 mg IV daily for now Follow-up on BNP in a.m. Patient is not on Lasix at home and will need low-dose Lasix upon DC Continue home metoprolol 2. Vitamin B12 deficiency Continue home meds 3. COPD-stable Continue home meds Prophylaxis: Lovenox Result Diagram: 11/06/18 0520 11/06/18 0520 Results 24hrs Laboratory Tests Test 11/06/18 05:20 11/06/18 10:45 White Blood Count 7.2 Red Blood Count 3.92 L Hemoglobin 13.5 L Hematocrit 39.9 L Mean Corpuscular Volume 101.8 H Mean Corpuscular Hemoglobin 34.4 H Mean Corpuscular Hemoglobin Concent 33.8 Red Cell Distribution Width 13.0 Platelet Count 127 L Mean Platelet Volume 13.0 H Immature Granulocytes % 0.400 Neutrophils % 70.9 Lymphocytes % 18.8 Monocytes % 8.1 Eosinophils % 1.4 Basophils % 0.4 Nucleated Red Blood Cells % 0.0 Immature Granulocytes # 0.030 Neutrophils # 5.1 Lymphocytes # 1.4 Monocytes # 0.6 Eosinophils # 0.1 Basophils # 0.0 Nucleated Red Blood Cells # 0.0 Prothrombin Time 19.0 H Prothrombin Time Ratio 1.5 INR International Normalized Ratio 1.58 Activated Partial Thromboplast Time 37.2 H Sodium Level 141 Potassium Level 4.0 Chloride Level 105 Carbon Dioxide Level 26 Anion Gap 10 Blood Urea Nitrogen 17 Creatinine 1.16 Est Glomerular Filtrat Rate mL/min Glucose Level 117 Calcium Level 9.3 Total Bilirubin 0.7 Direct Bilirubin 0.00 Indirect Bilirubin 0.7 Aspartate Amino Transf (AST/SGOT) 29 Alanine Aminotransferase (ALT/SGPT) 21 Alkaline Phosphatase 66 Troponin I 0.018 < 0.012 B-Type Natriuretic Peptide 3290 H Total Protein 6.9 Albumin 3.7 Creatine Kinase 28 Creatine Kinase Index 1.7 Creatinine Kinase MB (Mass) 0.47 HPI/ROS Admit Date/Time Admit Date/Time Nov 06, 2018 at 06:02 Hx of Present Illness Patient is an 83-year-old Farsi speaking male with a history of mild CHF with EF 50%, diastolic heart failure, A. fib, hypertension, generalized weakness, B12 deficiency who presents with shortness of breath especially while lying flat. In the ER chest x-ray showed pulmonary edema was worse since prior exam. Patient has no other complaints this time. ROS Constitutional: no complaints, improved Eyes: no complaints ENT: no complaints Respiratory: shortness of breath Cardiovascular: no complaints Gastrointestinal: no complaints Genitourinary: no complaints Musculoskeletal: no complaints Skin: no complaints Neurologic: no complaints Endocrine: no complaints Lymphatic: no complaints Psychological: no complaints, nl mood/affect Immunologic: no complaints PMH/Family/Social Past Medical History As per HPI Medications Current Medications IV Flush (NS 3 ml) 3 ml PER PROTOCOL IV ; Start 11/06/18 at 06:00 Ondansetron HCl (Zofran Inj) 4 mg Q6H PRN IV NAUSEA/VOMITING Last administered on 11/06/18at 06:15; Admin Dose 4 MG; Start 11/06/18 at 06:00 Aspirin (Aspirin) 81 mg DAILY PO Last administered on 11/06/18at 10:38; Admin Dose 81 MG; Start 11/06/18 at 09:00 Nitroglycerin (Nitroglycerin (Sl Tab) 0.4 Mg) 1 tab Q5M PRN SL .CHEST PAIN Last administered on 11/06/18at 06:15; Admin Dose 1 TAB; Start 11/06/18 at 06:00 Acetaminophen (Tylenol Tab) 650 mg Q6H PRN PO .PAIN 1-3 OR TEMP Last administered on 11/06/18at 11:03; Admin Dose 650 MG; Start 11/06/18 at 06:00 Docusate Sodium (Colace) 100 mg Q12H PRN PO .CONSTIPATION; Start 11/06/18 at 06:00 Bisacodyl (Dulcolax) 5 mg DAILY PRN PO .CONSTIPATION; Start 11/06/18 at 06:00 Heparin Sodium (Porcine) (Heparin (5000 Units/1ml)) 5,000 unit Q8 SC ; Start 11/06/18 at 06:00 Aspirin (Halfprin) 81 mg DAILY PO ; Start 11/06/18 at 09:00 Docusate Sodium (Colace) 100 mg Q12H PRN PO .CONSTIPATION; Start 11/06/18 at 06:00 Ferrous Sulfate (Ferrous Sulfate (Ec)) 325 mg DAILY PO Last administered on 11/06/18at 10:37; Admin Dose 325 MG; Start 11/06/18 at 09:00 Fluticasone Propionate (Flonase 0.05% Nasal) 1 spray BID NASAL ; Start 11/06/18 at 09:00 Loratadine (Claritin) 10 mg DAILY PO Last administered on 11/06/18at 10:38; Admin Dose 10 MG; Start 11/06/18 at 09:00 Coded Allergies: No Known Allergy (Unverified , 09/15/18) Past Surgical History Past Surgical Hx: other Family History Significant Family History: no pertinent family hx Social History Alcohol Use: rarely Smoking Status: Never smoker Drug Use: none Exam/Review of Systems Vital Signs Vitals Vital Signs Date Temp Pulse Resp B/P (MAP) Pulse Ox O2 O2 Flow FiO2 Time Delivery Rate 11/06/18 98.2 82 19 120/63 93 11:18 (82) 11/06/18 Room Air 09:16 11/06/18 21 05:25 Exam Constitutional: alert Respiratory: clear to auscultation Cardiovascular: regular rate and rhythm Gastrointestinal: soft; No distended Musculoskeletal: nl extremities to inspection AUBREY VALENCIA Nov 06, 2018 13:15
[2018-11-06] MEDS: IBUPROFEN 600 MG TAB PO PRN ×2 (13:58→22:34)
[2018-11-06] MEDS: FUROSEMIDE 40 MG INJ IV SCH (13:59)
[2018-11-06] MEDS: HYDROCODONE/APAP (5/325) TAB PO PRN (18:19)
[2018-11-06] MEDS: METOPROLOL 50 MG TAB PO SCH (20:20)
[2018-11-07] VITALS (12 sets, daily range): BP systolic 93–139; BP diastolic 51–89; PULSE 67–91; RESP 18–19
[2018-11-07] MEDS: HYDROCODONE/APAP (5/325) TAB PO PRN (01:15)
[2018-11-07] MEDS: ALBUTEROL/IPRATROPIUM (NEB) 3 ML AMP HHN PRN (04:10)
[2018-11-07] MEDS: CYANOCOBALAMIN 500 MCG TAB PO SCH (08:24)
[2018-11-07] MEDS: FERROUS SULFATE (EC) 325 MG TAB PO SCH (08:24)
[2018-11-07] MEDS: METOPROLOL 50 MG TAB PO SCH (08:24)
[2018-11-07] MEDS: LORATADINE 10 MG TAB PO SCH (08:25)
[2018-11-07] MEDS: FUROSEMIDE 40 MG INJ IV SCH (08:25)
[2018-11-07] MEDS: FLUTICASONE 0.05% 16 GM NAS SPRAY NASAL SCH ×2 (08:26→22:21)
[2018-11-07] MEDS: ASPIRIN 81 MG TAB PO SCH (08:30)
[2018-11-07] MEDS: ENOXAPARIN 40 MG/0.4 ML SYG SC SCH (08:35)
--- NOTE | 2018-11-07 13:18 | PN ---
Date/Time of Note Date/Time of Note DATE: 11/07/18 TIME: 13:16 Assessment/Plan VTE Prophylaxis [place] [facility] risk: 6 SCD applied ([place] [facility] Yes Pharmacological prophylaxis: heparin Lines/Catheters IV [facility] Saline Lock Assessment/Plan Problems: (1) Acute pulmonary edema Status: Acute Comment: We will continue with the low-dose diuretic. Following his electrolytes. Please note that this is primarily diastolic dysfunction as such from going to work mostly with the beta-erik especially given the rhythm disturbance see below (2) Grade I diastolic dysfunction Status: Chronic Comment: Control of blood pressure (3) Pacemaker Status: Chronic Comment: Noted. This gives us the alacrity and agility to use more beta- blockade (4) Atrial fibrillation Status: Chronic Comment: His atrial fibrillation-atrial flutter. He has variable ventricular response but has a pacemaker. Because of this and since he still getting tachycardic I am increasing beta-blockade Qualifiers: Atrial fibrillation type: chronic Qualified Codes: I48.2 - Chronic atrial fibrillation (5) COPD (chronic obstructive pulmonary disease) Status: Chronic Comment: Noted. Qualifiers: COPD type: unspecified COPD Qualified Codes: J44.9 - Chronic obstructive pulmonary disease, unspecified (6) B12 deficiency Status: Chronic Comment: Continue with this and also put a timeframe on the duration of iron therapy Result Diagram: 11/07/1824 11/07/18 0524 Results 24hrs Laboratory Tests Test 11/06/18 17:11 11/07/18 05:24 Creatine Kinase 31 Creatine Kinase Index 0.9 Creatinine Kinase MB (Mass) 0.28 Troponin I < 0.012 White Blood Count 6.7 Red Blood Count 3.68 L Hemoglobin 12.6 L Hematocrit 37.6 L Mean Corpuscular Volume 102.2 H Mean Corpuscular Hemoglobin 34.2 H Mean Corpuscular Hemoglobin Concent 33.5 Red Cell Distribution Width 13.2 Platelet Count 118 L Mean Platelet Volume 13.0 H Immature Granulocytes % 0.400 Neutrophils % 62.3 Lymphocytes % 26.5 Monocytes % 7.9 Eosinophils % 2.5 Basophils % 0.4 Nucleated Red Blood Cells % 0.0 Immature Granulocytes # 0.030 Neutrophils # 4.2 Lymphocytes # 1.8 Monocytes # 0.5 Eosinophils # 0.2 Basophils # 0.0 Nucleated Red Blood Cells # 0.0 Sodium Level 140 Potassium Level 3.6 Chloride Level 101 Carbon Dioxide Level 30 Anion Gap 9 Blood Urea Nitrogen 23 H Creatinine 1.61 H Est Glomerular Filtrat Rate mL/min Glucose Level 87 Hemoglobin A1c 4.6 Calcium Level 9.1 Magnesium Level 2.2 Total Bilirubin 0.7 Direct Bilirubin 0.00 Indirect Bilirubin 0.7 Aspartate Amino Transf (AST/SGOT) 27 Alanine Aminotransferase (ALT/SGPT) 15 Alkaline Phosphatase 55 B-Type Natriuretic Peptide 4270 H Total Protein 6.6 Albumin 3.5 Globulin 3.10 Albumin/Globulin Ratio 1.12 Triglycerides Level 77 Cholesterol Level 136 LDL Cholesterol, Calculated 81 HDL Cholesterol 40 Cholesterol/HDL Ratio 3.4 Subjective 24 Hr Interval Summary Free Text/Dictation Lakeisha Farsi speaking gentleman sitting in a chair at the bedside Constitutional: no complaints (No fevers chills or sweats) Eyes: no complaints ENT: no complaints Respiratory: no complaints Cardiovascular: no complaints (Denies chest pain or palpitation) Gastrointestinal: no complaints Genitourinary: no complaints Exam/Review of Systems Exam Vitals Vital Signs Date Temp Pulse Resp B/P (MAP) Pulse Ox O2 O2 Flow FiO2 Time Delivery Rate 11/07/18 91 12:15 11/07/18 98.2 18 124/77 96 11:13 (93) 11/07/18 Nasal 2.0 04:10 Cannula 11/06/18 21 05:25 Intake and Output 11/06/18 11/06/18 11/07/18 1515:00 23:00 07:00 IntakeIntake Total 450 ml 480 ml OutputOutput Total 1100 ml 900 ml BalanceBalance -650 ml -420 ml Constitutional: alert, oriented Neck: supple, non-tender Respiratory: clear to auscultation, normal air movement, other (Left anterior chest wall subcutaneous pacemaker) Cardiovascular: nl pulses, irregular rhythm Gastrointestinal: soft, nl liver, spleen, non-tender Results Results 24hrs Laboratory Tests Test 11/06/18 17:11 11/07/18 05:24 Creatine Kinase 31 Creatine Kinase Index 0.9 Creatinine Kinase MB (Mass) 0.28 Troponin I < 0.012 White Blood Count 6.7 Red Blood Count 3.68 L Hemoglobin 12.6 L Hematocrit 37.6 L Mean Corpuscular Volume 102.2 H Mean Corpuscular Hemoglobin 34.2 H Mean Corpuscular Hemoglobin Concent 33.5 Red Cell Distribution Width 13.2 Platelet Count 118 L Mean Platelet Volume 13.0 H Immature Granulocytes % 0.400 Neutrophils % 62.3 Lymphocytes % 26.5 Monocytes % 7.9 Eosinophils % 2.5 Basophils % 0.4 Nucleated Red Blood Cells % 0.0 Immature Granulocytes # 0.030 Neutrophils # 4.2 Lymphocytes # 1.8 Monocytes # 0.5 Eosinophils # 0.2 Basophils # 0.0 Nucleated Red Blood Cells # 0.0 Sodium Level 140 Potassium Level 3.6 Chloride Level 101 Carbon Dioxide Level 30 Anion Gap 9 Blood Urea Nitrogen 23 H Creatinine 1.61 H Est Glomerular Filtrat Rate mL/min Glucose Level 87 Hemoglobin A1c 4.6 Calcium Level 9.1 Magnesium Level 2.2 Total Bilirubin 0.7 Direct Bilirubin 0.00 Indirect Bilirubin 0.7 Aspartate Amino Transf (AST/SGOT) 27 Alanine Aminotransferase (ALT/SGPT) 15 Alkaline Phosphatase 55 B-Type Natriuretic Peptide 4270 H Total Protein 6.6 Albumin 3.5 Globulin 3.10 Albumin/Globulin Ratio 1.12 Triglycerides Level 77 Cholesterol Level 136 LDL Cholesterol, Calculated 81 HDL Cholesterol 40 Cholesterol/HDL Ratio 3.4 Medications Medication Current Medications IV Flush (NS 3 ml) 3 ml PER PROTOCOL IV ; Start 11/06/18 at 06:00 Ondansetron HCl (Zofran Inj) 4 mg Q6H PRN IV NAUSEA/VOMITING Last administered on 11/06/18at 06:15; Admin Dose 4 MG; Start 11/06/18 at 06:00 Aspirin (Aspirin) 81 mg DAILY PO Last administered on 11/07/18at 08:30; Admin Dose 81 MG; Start 11/06/18 at 09:00 Nitroglycerin (Nitroglycerin (Sl Tab) 0.4 Mg) 1 tab Q5M PRN SL .CHEST PAIN Last administered on 11/06/18at 06:15; Admin Dose 1 TAB; Start 11/06/18 at 06:00 Acetaminophen (Tylenol Tab) 650 mg Q6H PRN PO .PAIN 1-3 OR TEMP Last administered on 11/06/18at 17:22; Admin Dose 650 MG; Start 11/06/18 at 06:00 Docusate Sodium (Colace) 100 mg Q12H PRN PO .CONSTIPATION; Start 11/06/18 at 06:00 Bisacodyl (Dulcolax) 5 mg DAILY PRN PO .CONSTIPATION; Start 11/06/18 at 06:00 Docusate Sodium (Colace) 100 mg Q12H PRN PO .CONSTIPATION; Start 11/06/18 at 06:00 Ferrous Sulfate (Ferrous Sulfate (Ec)) 325 mg DAILY PO Last administered on 11/07/18 08:24; Admin Dose 325 MG; Start 11/06/18 at 09:00; Stop 12/06/18 at 08:59 Fluticasone Propionate (Flonase 0.05% Nasal) 1 spray BID NASAL Last administered on 11/07/18 08:26; Admin Dose 1 SPRAY; Start 11/06/18 at 09:00 Loratadine (Claritin) 10 mg DAILY PO Last administered on 11/07/18 08:25; Admin Dose 10 MG; Start 11/06/18 at 09:00 Furosemide (Lasix) 40 mg DAILY IV Last administered on 11/07/18 08:25; Admin Dose 40 MG; Start 11/06/18 at 13:30 Cyanocobalamin (Vitamin B12) 1,000 mcg DAILY PO Last administered on 11/07/18 08:24; Admin Dose 1,000 MCG; Start 11/07/18 at 09:00 Albuterol/ Ipratropium (Duoneb) 3 ml Q4H RESP THERAPY PRN HHN SHORTNESS OF B REATH Last administered on 11/07/18 04:10; Admin Dose 3 ML; Start 11/06/18 at 13:30 Enoxaparin Sodium (Lovenox) 40 mg DAILY SC Last administered on 11/07/18 08:35; Admin Dose 40 MG; Start 11/07/18 at 09:00 Ibuprofen (Motrin) 600 mg Q6H PRN PO MILD PAIN LEVEL 1-3 Last administered on 11/06/18 22:34; Admin Dose 600 MG; Start 11/06/18 at 14:00 Acetaminophen/ Hydrocodone Bitart ([place] (5/325)) 1 tab Q4H PRN PO MODERATE PAIN LEVEL 4-6 Last administered on 11/07/18 01:15; Admin Dose 1 TAB; Start 11/06/18 at 18:30 Metoprolol Tartrate (Lopressor) 100 mg BID PO ; Start 11/07/18 at 21:00; Status UNV Metoprolol Tartrate (Lopressor) 50 mg ONCE ONCE PO ; Start 11/07/18 at 13:30; Stop 11/07/18 at 13:31; Status UNV BAY BETH MD Nov 07, 2018 13:18
[2018-11-07] MEDS ORDERED: FUROSEMIDE 20 MG TAB PO ONE (13:30)
[2018-11-07] MEDS ORDERED: METOPROLOL 50 MG TAB PO ONE (13:30)
[2018-11-07] MEDS: IBUPROFEN 600 MG TAB PO PRN (15:35)
[2018-11-07] MEDS: NITROGLYCERIN (SL) 0.4 MG TAB SL PRN (17:41)
[2018-11-07] MEDS: METOPROLOL 100 MG TAB PO SCH (22:21)
[2018-11-07] MEDS: ACETAMINOPHEN 325 MG TAB PO PRN (23:55)
[2018-11-08] VITALS (12 sets, daily range): BP systolic 111–133; BP diastolic 66–80; PULSE 66–102; RESP 17–19
[2018-11-08] MEDS: HYDROCODONE/APAP (5/325) TAB PO PRN ×3 (03:41→20:10)
[2018-11-08] MEDS ORDERED: BENZONATATE 100 MG CAP PO SCH (04:00)
[2018-11-08] MEDS ORDERED: GUAIFENESIN/DM 5ML CUP PO PRN (04:00)
[2018-11-08] MEDS: IBUPROFEN 600 MG TAB PO PRN (08:00)
[2018-11-08] MEDS: FERROUS SULFATE (EC) 325 MG TAB PO SCH (08:01)
[2018-11-08] MEDS: LORATADINE 10 MG TAB PO SCH (08:01)
[2018-11-08] MEDS: ASPIRIN 81 MG TAB PO SCH (08:01)
[2018-11-08] MEDS: FUROSEMIDE 40 MG INJ IV SCH (08:01)
[2018-11-08] MEDS: CYANOCOBALAMIN 500 MCG TAB PO SCH (08:01)
[2018-11-08] MEDS: METOPROLOL 100 MG TAB PO SCH ×2 (08:02→20:10)
[2018-11-08] MEDS: FLUTICASONE 0.05% 16 GM NAS SPRAY NASAL SCH ×2 (08:02→20:09)
[2018-11-08] MEDS: ENOXAPARIN 40 MG/0.4 ML SYG SC SCH (08:04)
[2018-11-08] MEDS ORDERED: FUROSEMIDE 40 MG INJ IV ONE (11:30)
[2018-11-08] MEDS ORDERED: DIGOXIN 500 MCG INJ IV ONE (11:30)
[2018-11-08] MEDS ORDERED: POTASSIUM CHLORIDE (SR) 20 MEQ TAB PO STA (11:31)
--- NOTE | 2018-11-08 11:32 | PN ---
Date/Time of Note Date/Time of Note DATE: 11/08/18 TIME: 11:29 Assessment/Plan VTE Prophylaxis Risk score (from [facility])>0 risk: 4 SCD applied (from [facility]): Yes Pharmacological prophylaxis: heparin Lines/Catheters IV Catheter Type (from [facility]): Saline Lock Assessment/Plan Problems: (1) Acute pulmonary edema Status: Acute Comment: He will does have some fluid retention. And to go ahead and give an additional dosage of Lasix today and follow along carefully. Please note a lot of this is rate related and his diastolic dysfunction. (2) Grade I diastolic dysfunction Status: Chronic Comment: We have room to work [facility] with the atrial fibrillation/atrial flutter rate control will be a significant issue (3) Atrial fibrillation Status: Chronic Comment: This is A. fib-flutter. Better rate control. If I push up the beta-blockade may aggravate the underlying lung disease. As such we will use the current medium range dose of beta-blockade and add in digoxin as an AV coral slowing agent Qualifiers: Atrial fibrillation type: chronic Qualified Codes: I48.2 - Chronic atrial fibrillation (4) Pacemaker Status: Chronic Comment: Stable and operational (5) COPD (chronic obstructive pulmonary disease) Status: Chronic Comment: Initiate treatment Qualifiers: COPD type: unspecified COPD Qualified Codes: J44.9 - Chronic obstructive pulmonary disease, unspecified (6) Acute kidney injury (nontraumatic) Status: Acute Comment: Holding steady Result Diagram: 11/08/18 0516 11/08/18 0516 Results 24hrs Laboratory Tests Test 11/08/18 05:16 White Blood Count 9.0 # Red Blood Count 3.85 L Hemoglobin 13.1 L Hematocrit 39.3 L Mean Corpuscular Volume 102.1 H Mean Corpuscular Hemoglobin 34.0 H Mean Corpuscular Hemoglobin Concent 33.3 Red Cell Distribution Width 13.0 Platelet Count 127 L Mean Platelet Volume 12.7 H Immature Granulocytes % 0.300 Neutrophils % 74.1 Lymphocytes % 16.1 Monocytes % 7.5 Eosinophils % 1.7 Basophils % 0.3 Nucleated Red Blood Cells % 0.0 Immature Granulocytes # 0.030 Neutrophils # 6.6 Lymphocytes # 1.4 Monocytes # 0.7 Eosinophils # 0.2 Basophils # 0.0 Nucleated Red Blood Cells # 0.0 Sodium Level 140 Potassium Level 3.8 Chloride Level 104 Carbon Dioxide Level 29 Anion Gap 7 Blood Urea Nitrogen 24 H Creatinine 1.44 H Est Glomerular Filtrat Rate mL/min Glucose Level 96 Calcium Level 9.2 Total Bilirubin 0.7 Direct Bilirubin 0.00 Indirect Bilirubin 0.7 Aspartate Amino Transf (AST/SGOT) 25 Alanine Aminotransferase (ALT/SGPT) 20 Alkaline Phosphatase 54 Total Protein 6.5 Albumin 3.5 Globulin 3.00 Albumin/Globulin Ratio 1.16 Subjective 24 Hr Interval Summary Free Text/Dictation Patient reports he is feeling a little bit better in terms of his breathing. Not at baseline Constitutional: no complaints Respiratory: shortness of breath Cardiovascular: no complaints Gastrointestinal: no complaints Genitourinary: no complaints Exam/Review of Systems Exam Vitals Vital Signs Date Temp Pulse Resp B/P (MAP) Pulse Ox O2 O2 Flow FiO2 Time Delivery Rate 11/08/18 102 08:08 11/08/18 98.1 18 133/78 90 07:28 (96) 11/08/18 2.0 06:32 11/07/18 Nasal 04:10 Cannula 11/06/18 21 05:25 Intake and Output 11/07/18 11/07/18 11/08/18 1515:00 23:00 07:00 IntakeIntake Total 650 ml OutputOutput Total 1120 ml BalanceBalance -470 ml Constitutional: alert, oriented Respiratory: normal air movement, wheezing Cardiovascular: nl pulses, irregular rhythm Gastrointestinal: soft Musculoskeletal: nl extremities to inspection Results Results 24hrs Laboratory Tests Test 11/08/18 05:16 White Blood Count 9.0 # Red Blood Count 3.85 L Hemoglobin 13.1 L Hematocrit 39.3 L Mean Corpuscular Volume 102.1 H Mean Corpuscular Hemoglobin 34.0 H Mean Corpuscular Hemoglobin Concent 33.3 Red Cell Distribution Width 13.0 Platelet Count 127 L Mean Platelet Volume 12.7 H Immature Granulocytes % 0.300 Neutrophils % 74.1 Lymphocytes % 16.1 Monocytes % 7.5 Eosinophils % 1.7 Basophils % 0.3 Nucleated Red Blood Cells % 0.0 Immature Granulocytes # 0.030 Neutrophils # 6.6 Lymphocytes # 1.4 Monocytes # 0.7 Eosinophils # 0.2 Basophils # 0.0 Nucleated Red Blood Cells # 0.0 Sodium Level 140 Potassium Level 3.8 Chloride Level 104 Carbon Dioxide Level 29 Anion Gap 7 Blood Urea Nitrogen 24 H Creatinine 1.44 H Est Glomerular Filtrat Rate mL/min Glucose Level 96 Calcium Level 9.2 Total Bilirubin 0.7 Direct Bilirubin 0.00 Indirect Bilirubin 0.7 Aspartate Amino Transf (AST/SGOT) 25 Alanine Aminotransferase (ALT/SGPT) 20 Alkaline Phosphatase 54 Total Protein 6.5 Albumin 3.5 Globulin 3.00 Albumin/Globulin Ratio 1.16 Medications Medication Current Medications IV Flush (NS 3 ml) 3 ml PER PROTOCOL IV ; Start 11/06/18 at 06:00 Ondansetron HCl (Zofran Inj) 4 mg Q6H PRN IV NAUSEA/VOMITING Last administered on 11/06/18 06:15; Admin Dose 4 MG; Start 11/06/18 at 06:00 Aspirin (Aspirin) 81 mg DAILY PO Last administered on 11/08/18 08:01; Admin Dose 81 MG; Start 11/06/18 at 09:00 Nitroglycerin (Nitroglycerin (Sl Tab) 0.4 Mg) 1 tab Q5M PRN SL .CHEST PAIN Last administered on 11/07/18at 17:41; Admin Dose 1 TAB; Start 11/06/18 at 06:00 Acetaminophen (Tylenol Tab) 650 mg Q6H PRN PO .PAIN 1-3 OR TEMP Last administered on 11/07/18at 23:55; Admin Dose 650 MG; Start 11/06/18 at 06:00 Docusate Sodium (Colace) 100 mg Q12H PRN PO .CONSTIPATION; Start 11/06/18 at 06:00 Bisacodyl (Dulcolax) 5 mg DAILY PRN PO .CONSTIPATION; Start 11/06/18 at 06:00 Docusate Sodium (Colace) 100 mg Q12H PRN PO .CONSTIPATION; Start 11/06/18 at 06:00 Ferrous Sulfate (Ferrous Sulfate (Ec)) 325 mg DAILY PO Last administered on 11/08/18 08:01; Admin Dose 325 MG; Start 11/06/18 at 09:00; Stop 12/06/18 at 08:59 Fluticasone Propionate (Flonase 0.05% Nasal) 1 spray BID NASAL Last a dministered on 11/08/18 08:02; Admin Dose 1 SPRAY; Start 11/06/18 at 09:00 Loratadine (Claritin) 10 mg DAILY PO Last administered on 11/08/18 08:01; Admin Dose 10 MG; Start 11/06/18 at 09:00 Furosemide (Lasix) 40 mg DAILY IV Last administered on 11/08/18 08:01; Admin Dose 40 MG; Start 11/06/18 at 13:30 Cyanocobalamin (Vitamin B12) 1,000 mcg DAILY PO Last administered on 11/08/18 08:01; Admin Dose 1,000 MCG; Start 11/07/18 at 09:00 Albuterol/ Ipratropium (Duoneb) 3 ml Q4H RESP THERAPY PRN HHN SHORTNESS OF BREATH Last administered on 11/07/18 04:10; Admin Dose 3 ML; Start 11/06/18 at 13:30 Enoxaparin Sodium (Lovenox) 40 mg DAILY SC Last administered on 11/08/18 08:04; Admin Dose 40 MG; Start 11/07/18 at 09:00 Ibuprofen (Motrin) 600 mg Q6H PRN PO MILD PAIN LEVEL 1-3 Last administered on 11/08/18 08:00; Admin Dose 600 MG; Start 11/06/18 at 14:00 Acetaminophen/ Hydrocodone Bitart ([place] (5/325)) 1 tab Q4H PRN PO MODERATE PAIN LEVEL 4-6 Last administered on 11/08/18 10:26; Admin Dose 1 TAB; Start 11/06/18 at 18:30 Metoprolol Tartrate (Lopressor) 100 mg BID PO Last administered on 11/08/18 08:02; Admin Dose 100 MG; Start 11/07/18 at 21:00 Guaifenesin/ Dextromethorphan (Robitussin Dm Liquid Cup) 5 ml Q4H PRN PO COUGH; Start 11/08/18 at 04:00; Stop 11/09/18 at 04:00 BAY BETH MD Nov 08, 2018 11:31
[2018-11-08] MEDS: FLUTICASONE/VILANTEROL 100-25 INH SCH (12:33)
[2018-11-08] MEDS: DIGOXIN 0.25 MG TAB PO SCH (13:45)
[2018-11-08] MEDS ORDERED: AL HYDROX/MG HYDROX/SIMETH 30 ML CUP PO PRN (20:00)
[2018-11-08] MEDS: MONTELUKAST 10 MG TAB PO SCH (20:09)
[2018-11-08] MEDS: ONDANSETRON 4 MG INJ IV PRN (21:17)
[2018-11-08] MEDS ORDERED: LORAZEPAM 2 MG INJ IV ONE (23:00)
[2018-11-08] MEDS: DOCUSATE SODIUM 100 MG CAP PO SCH (23:32)
[2018-11-09] VITALS (12 sets, daily range): BP systolic 112–123; BP diastolic 72–79; PULSE 72–91; RESP 17–19
[2018-11-09] MEDS: PANTOPRAZOLE (EC) 40 MG TAB PO SCH (06:07)
[2018-11-09] MEDS: CYANOCOBALAMIN 500 MCG TAB PO SCH (08:17)
[2018-11-09] MEDS: FERROUS SULFATE (EC) 325 MG TAB PO SCH (08:17)
[2018-11-09] MEDS: ASPIRIN 81 MG TAB PO SCH (08:17)
[2018-11-09] MEDS: FLUTICASONE 0.05% 16 GM NAS SPRAY NASAL SCH ×2 (08:17→21:00)
[2018-11-09] MEDS: LORATADINE 10 MG TAB PO SCH (08:17)
[2018-11-09] MEDS: POLYETHYLENE GLYCOL 17 GM PACKET PO SCH (08:17)
[2018-11-09] MEDS: FLUTICASONE/VILANTEROL 100-25 INH SCH (08:17)
[2018-11-09] MEDS: DOCUSATE SODIUM 100 MG CAP PO SCH ×2 (08:17→21:00)
[2018-11-09] MEDS: FUROSEMIDE 40 MG INJ IV SCH (08:18)
[2018-11-09] MEDS: METOPROLOL 100 MG TAB PO SCH ×2 (08:18→21:01)
[2018-11-09] MEDS: ENOXAPARIN 40 MG/0.4 ML SYG SC SCH (08:21)
[2018-11-09] MEDS: DIGOXIN 0.25 MG TAB PO SCH (13:12)
--- NOTE | 2018-11-09 14:22 | PN ---
Date/Time of Note Date/Time of Note DATE: 11/09/18 TIME: 14:21 Assessment/Plan VTE Prophylaxis Risk score (from [facility])>0 risk: 5 SCD applied (from [facility]): Yes Pharmacological prophylaxis: LMWH Lines/Catheters IV Catheter Type (from [facility]): Saline Lock Assessment/Plan Hospital Course 1. 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 Vitamin B12 deficiency Continue home meds 3. COPD-stable Continue home meds 4. 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 to assist with placement Prophylaxis: Lovenox Result Diagram: 11/08/18 0516 11/09/18 0521 Results 24hrs Laboratory Tests Test 11/09/18 05:21 Sodium Level 141 Potassium Level 3.8 Chloride Level 103 Carbon Dioxide Level 30 Anion Gap 8 Blood Urea Nitrogen 30 H Creatinine 1.45 H Est Glomerular Filtrat Rate mL/min Glucose Level 87 Calcium Level 9.2 Subjective 24 Hr Interval Summary Constitutional: disoriented Exam/Review of Systems Exam Vitals Vital Signs Date Temp Pulse Resp B/P (MAP) Pulse Ox O2 O2 Flow FiO2 Time Delivery Rate 11/09/18 77 12:36 11/09/18 97.8 17 123/77 95 11:39 (92) 11/09/18 3.0 11:09 11/07/18 Nasal 04:10 Cannula 11/06/18 21 05:25 Intake and Output 11/08/18 11/08/18 11/09/18 1515:00 23:00 07:00 IntakeIntake Total 300 ml 850 ml OutputOutput Total 980 ml BalanceBalance 300 ml -130 ml Psych: confusion Respiratory: clear to auscultation Cardiovascular: regular rate and rhythm Gastrointestinal: soft; No distended Musculoskeletal: nl extremities to inspection Results Results 24hrs Laboratory Tests Test 11/09/18 05:21 Sodium Level 141 Potassium Level 3.8 Chloride Level 103 Carbon Dioxide Level 30 Anion Gap 8 Blood Urea Nitrogen 30 H Creatinine 1.45 H Est Glomerular Filtrat Rate mL/min Glucose Level 87 Calcium Level 9.2 Medications Medication Current Medications IV Flush (NS 3 ml) 3 ml PER PROTOCOL IV ; Start 11/06/18 at 06:00 Ondansetron HCl (Zofran Inj) 4 mg Q6H PRN IV NAUSEA/VOMITING Last administered on 11/08/18 21:17; Admin Dose 4 MG; Start 11/06/18 at 06:00 Aspirin (Aspirin) 81 mg DAILY PO Last administered on 11/09/18 08:17; Admin Do se 81 MG; Start 11/06/18 at 09:00 Nitroglycerin (Nitroglycerin (Sl Tab) 0.4 Mg) 1 tab Q5M PRN SL .CHEST PAIN Last administered on 11/07/18 17:41; Admin Dose 1 TAB; Start 11/06/18 at 06:00 Acetaminophen (Tylenol Tab) 650 mg Q6H PRN PO .PAIN 1-3 OR TEMP Last administered on 11/07/18 23:55; Admin Dose 650 MG; Start 11/06/18 at 06:00 Bisacodyl (Dulcolax) 5 mg DAILY PRN PO .CONSTIPATION Last administered on 11/08/18 20:27; Admin Dose 5 MG; Start 11/06/18 at 06:00 Ferrous Sulfate (Ferrous Sulfate (Ec)) 325 mg DAILY PO Last administered on 11/09/18 08:17; Admin Dose 325 MG; Start 11/06/18 at 09:00; Stop 12/06/18 at 08:59 Fluticasone Propionate (Flonase 0.05% Nasal) 1 spray BID NASAL Last a dministered on 11/09/18 08:17; Admin Dose 1 SPRAY; Start 11/06/18 at 09:00 Loratadine (Claritin) 10 mg DAILY PO Last administered on 11/09/18 08:17; Admin Dose 10 MG; Start 11/06/18 at 09:00 Furosemide (Lasix) 40 mg DAILY IV Last administered on 11/09/18 08:18; Admin Dose 40 MG; Start 11/06/18 at 13:30 Cyanocobalamin (Vitamin B12) 1,000 mcg DAILY PO Last administered on 11/09/18 08:17; Admin Dose 1,000 MCG; Start 11/07/18 at 09:00 Albuterol/ Ipratropium (Duoneb) 3 ml Q4H RESP THERAPY PRN HHN SHORTNESS OF BREATH Last administered on 11/07/18 04:10; Admin Dose 3 ML; Start 11/06/18 at 13:30 Enoxaparin Sodium (Lovenox) 40 mg DAILY SC Last administered on 11/09/18 08:21; Admin Dose 40 MG; Start 11/07/18 at 09:00 Ibuprofen (Motrin) 600 mg Q6H PRN PO MILD PAIN LEVEL 1-3 Last administered on 11/08/18 08:00; Admin Dose 600 MG; Start 11/06/18 at 14:00 Acetaminophen/ Hydrocodone Bitart ([place] (5/325)) 1 tab Q4H PRN PO MODERATE PAIN LEVEL 4-6 Last administered on 11/08/18 20:10; Admin Dose 1 TAB; Start 11/06/18 at 18:30 Metoprolol Tartrate (Lopressor) 100 mg BID PO Last administered on 11/09/18 08:18; Admin Dose 100 MG; Start 11/07/18 at 21:00 Digoxin (Digoxin) 0.25 mg DAILY@13 PO Last administered on 11/09/18 13:12; Admin Dose 0.25 MG; Start 11/08/18 at 13:00 Montelukast Sodium (Singulair) 10 mg HS PO Last administered on 11/08/18 20:09; Admin Dose 10 MG; Start 11/08/18 at 21:00 Fluticasone/ Vilanterol (Breo Ellipta 100-25 Mcg Inh) 1 inh DAILY INH Last administered on 11/09/18 08:17; Admin Dose 1 INH; Start 11/08/18 at 12:00 Pantoprazole (Protonix Tab) 40 mg DAILY@06 PO Last administered on 11/09/18 06:07; Admin Dose 40 MG; Start 11/09/18 at 06:00 Al Hydrox/Mg Hydrox/Simethicone (Mag-Al Plus) 30 ml Q6H PRN PO GASTROINTESTINAL UPSET Last administered on 11/08/18 20:09; Admin Dose 30 ML; Start 11/08/18 at 20:00 Docusate Sodium (Colace) 100 mg BID PO Last administered on 11/09/18 08:17; Admin Dose 100 MG; Start 11/08/18 at 23:00 Polyethylene Glycol (Miralax) 17 gm DAILY PO Last administered on 3/25/19at 08:17; Admin Dose 17 GM; Start 11/09/18 at 09:00 AUBREY VALENCIA Nov 09, 2018 14:22
[2018-11-09] MEDS: ACETAMINOPHEN 325 MG TAB PO PRN (17:47)
[2018-11-09] MEDS: IBUPROFEN 600 MG TAB PO PRN (19:43)
[2018-11-09] MEDS: MONTELUKAST 10 MG TAB PO SCH (21:01)
[2018-11-10] VITALS (12 sets, daily range): BP systolic 116–129; BP diastolic 74–80; PULSE 72–87; RESP 17–20
[2018-11-10] MEDS: PANTOPRAZOLE (EC) 40 MG TAB PO SCH (06:36)
[2018-11-10] MEDS: CYANOCOBALAMIN 500 MCG TAB PO SCH (08:13)
[2018-11-10] MEDS: LORATADINE 10 MG TAB PO SCH (08:13)
[2018-11-10] MEDS: ASPIRIN 81 MG TAB PO SCH (08:13)
[2018-11-10] MEDS: ACETAMINOPHEN 325 MG TAB PO PRN ×2 (08:13→17:31)
[2018-11-10] MEDS: FERROUS SULFATE (EC) 325 MG TAB PO SCH (08:13)
[2018-11-10] MEDS: DOCUSATE SODIUM 100 MG CAP PO SCH ×2 (08:13→20:51)
[2018-11-10] MEDS: POLYETHYLENE GLYCOL 17 GM PACKET PO SCH (08:14)
[2018-11-10] MEDS: METOPROLOL 100 MG TAB PO SCH ×2 (08:14→20:51)
[2018-11-10] MEDS: FUROSEMIDE 40 MG INJ IV SCH (08:14)
[2018-11-10] MEDS: FLUTICASONE 0.05% 16 GM NAS SPRAY NASAL SCH ×2 (08:17→20:51)
[2018-11-10] MEDS: FLUTICASONE/VILANTEROL 100-25 INH SCH (08:18)
[2018-11-10] MEDS: ENOXAPARIN 40 MG/0.4 ML SYG SC SCH (08:25)
[2018-11-10] MEDS ORDERED: BISACODYL (EC) 5 MG TAB PO ONE (11:00)
[2018-11-10] MEDS: DIGOXIN 0.25 MG TAB PO SCH (13:00)
--- NOTE | 2018-11-10 14:56 | PN ---
Date/Time of Note Date/Time of Note DATE: 11/10/18 TIME: 14:55 Assessment/Plan VTE Prophylaxis Risk score (from Ns)>0 risk: 5 SCD applied (from Ns): Yes Pharmacological prophylaxis: LMWH Lines/Catheters IV Catheter Type (from Nrsg): Saline Lock Assessment/Plan Hospital Course 1. 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 Vitamin B12 deficiency Continue home meds 3. COPD-stable Continue home meds 4. Encephalopathy likely secondary to dementia account financial manager and dialysis social worker to assist with placement Prophylaxis: Lovenox DC planning: Patient and daughter are now agreeable to short-term [facility] placement, rn case manager hospice arranging Result Diagram: 11/08/18 0516 11/09/18 0521 Subjective 24 Hr Interval Summary Constitutional: no complaints Exam/Review of Systems Exam Vitals Vital Signs Date Temp Pulse Resp B/P (MAP) Pulse Ox O2 O2 Flow FiO2 Time Delivery Rate 11/10/18 75 13:01 11/10/18 97.7 20 120/74 94 11:19 (89) 11/10/18 3.0 04:15 11/07/18 Nasal 04:10 Cannula Intake and Output 11/09/18 11/09/18 11/10/18 1515:00 23:00 07:00 IntakeIntake Total 800 ml OutputOutput Total 200 ml BalanceBalance 600 ml Constitutional: alert, oriented Respiratory: clear to auscultation Cardiovascular: regular rate and rhythm Gastrointestinal: soft; No distended Musculoskeletal: nl extremities to inspection Medications Medication Current Medications IV Flush (NS 3 ml) 3 ml PER PROTOCOL IV ; Start 11/06/18 at 06:00 Ondansetron HCl (Zofran Inj) 4 mg Q6H PRN IV NAUSEA/VOMITING Last administered on 11/08/18at 21:17; Admin Dose 4 MG; Start 11/06/18 at 06:00 Aspirin (Aspirin) 81 mg DAILY PO Last administered on 11/10/18at 08:13; Admin Dose 81 MG; Start 11/06/18 at 09:00 Nitroglycerin (Nitroglycerin (Sl Tab) 0.4 Mg) 1 tab Q5M PRN SL .CHEST PAIN Last administered on 11/07/18 17:41; Admin Dose 1 TAB; Start 11/06/18 at 06:00 Acetaminophen (Tylenol Tab) 650 mg Q6H PRN PO .PAIN 1-3 OR TEMP Last administered on 11/10/18 08:13; Admin Dose 650 MG; Start 11/06/18 at 06:00 Bisacodyl (Dulcolax) 5 mg DAILY PRN PO .CONSTIPATION Last administered on 10/17 20:27; Admin Dose 5 MG; Start 11/06/18 at 06:00 Ferrous Sulfate (Ferrous Sulfate (Ec)) 325 mg DAILY PO Last administered on 11/10/18 08:13; Admin Dose 325 MG; Start 11/06/18 at 09:00; Stop 12/06/18 at 08:59 Fluticasone Propionate (Flonase 0.05% Nasal) 1 spray BID NASAL Last administered on 11/10/18 08:17; Admin Dose 1 SPRAY; Start 11/06/18 at 09:00 Loratadine (Claritin) 10 mg DAILY PO Last administered on 11/10/18 08:13; Admin Dose 10 MG; Start 11/06/18 at 09:00 Furosemide (Lasix) 40 mg DAILY IV Last administered on 11/10/18 08:14; Admin Dose 40 MG; Start 11/06/18 at 13:30 Cyanocobalamin (Vitamin B12) 1,000 mcg DAILY PO Last administered on 11/10/18 08:13; Admin Dose 1,000 MCG; Start 11/07/18 at 09:00 Albuterol/ Ipratropium (Duoneb) 3 ml Q4H RESP THERAPY PRN HHN SHORTNESS OF BREATH Last administered on 11/07/18 04:10; Admin Dose 3 ML; Start 11/06/18 at 13:30 Enoxaparin Sodium (Lovenox) 40 mg DAILY SC Last administered on 11/10/18 08:25; Admin Dose 40 MG; Start 11/07/18 at 09:00 Ibuprofen (Motrin) 600 mg Q6H PRN PO MILD PAIN LEVEL 1-3 Last administered on 11/09/18 19:43; Admin Dose 600 MG; Start 11/06/18 at 14:00 Acetaminophen/ Hydrocodone Bitart (Bradley (5/325)) 1 tab Q4H PRN PO MODERATE PAIN LEVEL 4-6 Last administered on 11/08/18 20:10; Admin Dose 1 TAB; Start 11/06/18 at 18:30 Metoprolol Tartrate (Lopressor) 100 mg BID PO Last administered on 11/10/18 08:14; Admin Dose 100 MG; Start 11/07/18 at 21:00 Digoxin (Digoxin) 0.25 mg DAILY@13 PO Last administered on 11/10/18 13:00; Admin Dose 0.25 MG; Start 11/08/18 at 13:00 Montelukast Sodium (Singulair) 10 mg HS PO Last administered on 11/09/18 21:01; Admin Dose 10 MG; Start 11/08/18 at 21:00 Fluticasone/ Vilanterol (Breo Ellipta 100-25 Mcg Inh) 1 inh DAILY INH Last administered on 11/10/18 08:18; Admin Dose 1 INH; Start 11/08/18 at 12:00 Pantoprazole (Protonix Tab) 40 mg DAILY@06 PO Last administered on 11/10/18 06:36; Admin Dose 40 MG; Start 11/09/18 at 06:00 Al Hydrox/Mg Hydrox/Simethicone (Mag-Al Plus) 30 ml Q6H PRN PO GASTROINTESTINAL UPSET Last administered on 11/08/18 20:09; Admin Dose 30 ML; Start 11/08/18 at 20:00 Docusate Sodium (Colace) 100 mg BID PO Last administered on 11/10/18 08:13; Admin Dose 100 MG; Start 11/08/18 at 23:00 Polyethylene Glycol (Miralax) 17 gm DAILY PO Last administered on 11/10/18 08:14; Admin Dose 17 GM; Start 11/09/18 at 09:00 AUBREY VALENCIA Nov 10, 2018 14:56
[2018-11-10] MEDS: IBUPROFEN 600 MG TAB PO PRN (19:58)
[2018-11-10] MEDS: MONTELUKAST 10 MG TAB PO SCH (20:51)
[2018-11-11 00:10] VITALS: BP 126/78; PULSE 75; RESP 18
[2018-11-11] MEDS: PANTOPRAZOLE (EC) 40 MG TAB PO SCH (06:05)
[2018-11-11 07:42] VITALS: BP 120/76; PULSE 76; RESP 18
[2018-11-11] MEDS: ALBUTEROL/IPRATROPIUM (NEB) 3 ML AMP HHN PRN (08:33)
[2018-11-11] MEDS: ASPIRIN 81 MG TAB PO SCH (09:27)
[2018-11-11] MEDS: FERROUS SULFATE (EC) 325 MG TAB PO SCH (09:27)
[2018-11-11] MEDS: LORATADINE 10 MG TAB PO SCH (09:27)
[2018-11-11] MEDS: POLYETHYLENE GLYCOL 17 GM PACKET PO SCH (09:27)
[2018-11-11] MEDS: DOCUSATE SODIUM 100 MG CAP PO SCH (09:27)
[2018-11-11] MEDS: FUROSEMIDE 40 MG INJ IV SCH (09:28)
[2018-11-11] MEDS: ENOXAPARIN 40 MG/0.4 ML SYG SC SCH (09:30)
[2018-11-11] MEDS: ACETAMINOPHEN 325 MG TAB PO PRN (09:43)
[2018-11-11] MEDS ORDERED: FURO-110 PO (11:27)
[2018-11-11] MEDS: FLUTICASONE 0.05% 16 GM NAS SPRAY NASAL SCH (12:23)
[2018-11-11] MEDS: FLUTICASONE/VILANTEROL 100-25 INH SCH (12:23)
[2018-11-11] MEDS: IBUPROFEN 600 MG TAB PO PRN (12:26)
[2018-11-11] MEDS: METOPROLOL 100 MG TAB PO SCH (12:31)
[2018-11-11 14:33] VITALS: BP 119/67; PULSE 75; RESP 18
[2018-11-11] MEDS: CYANOCOBALAMIN 500 MCG TAB PO SCH (14:40)
--- NOTE | 2018-11-11 14:54 | DS ---
Date/Time of Note Date/Time of Note DATE: 11/11/18 TIME: 14:49 Discharge Summary Admission/Discharge Info Admit Date/Time Nov 07, 2018 at 07:54 Discharge Date/Time November 11, 2018 Discharge Diagnosis 1. 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 Continue home metoprolol 2. Vitamin B12 deficiency Continue home meds 3. COPD-stable Continue home meds 4. Encephalopathy likely secondary to dementia global account manager has arranged for placement in a detention Patient Condition: Good Hospital Course Patient is an 83-year-old Farsi speaking male with a history of mild CHF with EF 50%, diastolic heart failure, A. fib, hypertension, generalized weakness, B12 deficiency who presents with shortness of breath especially while lying flat. Patient was diagnosed with CHF exacerbation which improved with IV Lasix. Patient was noted to have mild to moderate dementia, patient lives alone at home and after discussion with patient's daughter it was agreed that patient is unsafe to return home with the minimal caregiver hours that he had arranged and should return home only after patient has an increase in the amount of hours that the caregivers will be at the patient's home. global account manager arranged for placement in a detention and in the meantime daughter will arrange for more hours. On day of discharge patient's vitals, labs of exam are stable. Home Meds Active Scripts Furosemide* (Lasix*) 20 Mg Tablet, 20 MG PO DAILY, #60 TAB Prov:AUBREY VALENCIA 11/11/18 Cyanocobalamin* (Vitamin B12*) 500 Mcg Tab, 1000 MCG PO DAILY for 30 Days, #60 TAB 1 Refill Prov:GOMEZ TRISTAN MD 10/08/18 Fluticasone Propionate* (Fluticasone Propionate* Nasal) 50 Mcg/[place] - 16 Gm Sp ray.susp, 1 SPRAY NASAL BID for 30 Days, #1 BOT 1 Refill Prov:GOMEZ TRISTAN MD 10/08/18 Ferrous Sulfate* (Ferrous Sulfate*) 325 Mg Tabec, 325 MG PO DAILY for 30 Days, #30 TAB 6 Refills Prov:GOMEZ TRISTAN MD 10/08/18 Loratadine* (Loratadine*) 10 Mg Tablet, 10 MG PO DAILY for 30 Days, #30 TAB Prov:GOMEZ TRISTAN MD 10/08/18 Albuterol Sulfate (Proair Respiclick) 90 Mcg Aer.pow.ba, 2 PUFFS INHALATION Q6 PRN for WHEEZING AND SOB, #1 BOTTLE 2 Refills Prov:NICHOLAS BHAKTA MD 09/15/18 Docusate Sodium (Dok) 100 Mg Capsule, 100 MG PO Q12H PRN for .CONSTIPATION for 1 Day, #1 CAP otc Prov:NICHOLAS BHAKTA MD 09/15/18 Acetaminophen* (Tylenol*) 325 Mg Tablet, 650 MG PO Q6H PRN for .PAIN 1-3 OR TEMP for 1 Day, #1 TAB Prov:NICHOLAS BHAKTA MD 09/15/18 Aspirin Delayed Release (Aspirin Delayed Release) 81 Mg Tablet.dr, 81 MG PO DAILY for 30 Days, #30 Prov:NICHOLAS BHAKTA MD 09/15/18 Metoprolol Tartrate* (Lopressor*) 50 Mg Tab, 50 MG PO BID for 14 Days, #30 TAB Prov:NICHOLAS BHAKTA MD 09/15/18 [Nicotine (14 Mg/24 Hr)] 1 PATCH PATCH No Conflict Check, 1 PATCH TRANSDERM DAILY PRN for CONTROL WITHDRAWAL SYMPTOMS for 7 Days otc Prov:NICHOLAS BHAKTA MD 09/15/18 Discontinued Scripts Lisinopril* (Lisinopril*) 5 Mg Tablet, 5 MG PO DAILY for 14 Days, #14 TAB Prov:NICHOLAS BHAKTA MD 09/15/18 Follow-up Plan Follow-up physicians at the shelter facility Primary Care Provider Care Physician No Primary Time spent on discharge: > 30 minutes AUBREY VALENCIA Nov 11, 2018 14:54
[2018-11-11] MEDS: DIGOXIN 0.25 MG TAB PO SCH (15:07)
== END 2018-11-11 15:20 | DRG 292 ==
LOC: E/R 04:57 → 6WM 06:02 → OBSVTOIN 11-07 07:54 → MS1 11-11 00:30
PROVIDERS: ADMIT Family Medicine; ATTEND Internal Medicine
DX: I11.0 Hypertensive heart disease with heart failure (principal); N17.9 Acute kidney failure, unspecified; I50.43 Acute on chronic combined systolic (congestive) and diastolic (congestive) heart failure; E53.8 Deficiency of other specified B group vitamins; J44.9 Chronic obstructive pulmonary disease, unspecified; F03.90 Unspecified dementia, unspecified severity, without behavioral disturbance, psychotic disturbance, mood disturbance, and anxiety; Z95.0 Presence of cardiac pacemaker; R00.0 Tachycardia, unspecified
CPT/HCPCS: 36415; 71045; 80048; 80053; 80061; 80076; 82550; 82553; 83036; 83735; 83880; 84484; 85025; 85610; 85730; 93005; 94640; 94664; 97116; 97161; 97530; G0378; J1650; J1940; J2060; J2405

== ENCOUNTER 2019-01-17 18:07 | Inpatient (IN) | payer MEDICARE, OTHER ==
[~2019-01-17] VITALS: Ht 167.6 cm; Wt 61.0 kg
[~2019-01-17 18:07] MED LIST changes: +FURO-110 PO; -LISI-313 PO
[2019-01-17] MEDS ORDERED: ALBUTEROL 0.5% (NEB) 2.5 MG/0.5 ML AMP INH STA (18:52)
[2019-01-17] MEDS ORDERED: CEFTRIAXONE 1 GM/50 ML (PMX) 50 ML IVPB STA (18:52)
[2019-01-17] MEDS ORDERED: METHYLPREDNISOLONE 125 MG INJ IV STA (18:52)
[2019-01-17] MEDS ORDERED: SODIUM CHLORIDE 0.9% 1L BAG IV* STA (18:52)
[2019-01-17] MEDS ORDERED: IPRATROPIUM (NEB) 0.5 MG/2.5 ML AMP INH STA (18:52)
[2019-01-17] MEDS ORDERED: ASPIRIN 325 MG TAB PO ONE (20:00)
[2019-01-17] MEDS ORDERED: ACETAMINOPHEN 325 MG TAB PO PRN ×2 (21:30→22:00)
[2019-01-17] MEDS ORDERED: ONDANSETRON 4 MG INJ IV PRN ×2 (21:30→22:00)
[2019-01-17] MEDS ORDERED: NACL 0.9% 3 ML SYG IV SCH (22:00)
[2019-01-17] MEDS ORDERED: ALBUTEROL HFA 8 GM INHALER INH PRN (22:00)
--- NOTE | 2019-01-17 22:08 | HP ---
Date/Time of Note Date/Time of Note DATE: 01/17/19 TIME: 21:51 Assessment/Plan VTE Prophylaxis SCD applied (from Nsg): Yes Pharmacological prophylaxis: LMWH Lines/Catheters IV Catheter Type (from Nrsg): Saline Lock Assessment/Plan Assessment/Plan 83 yo man with history of COPD and CHF presents with fatigue for 1 week #Fatigue #Respiratory failure - May have been COPD exacerbation. Patient appears much better after steroids, n o diuresis needed. - According to ED, it's possible that patient's decompensation may have been due to very agitated family members at bedside. Respiratory status improved greatly after family left. - Need to try to reach out to Dr. Recinos or patient's PMD to get more past medical history. - Continue current code status DNR/DNI - Patient came from possible home hospice but without clear evidence of terminal illness, except possibly advanced dementia. #JUANA - Cr 2.56, unknown baseline Cr. - Gentle diuresis #Dyspepsia - Continue H2 erik DVT: Lovenox GI: None Result Diagram: 01/17/19190201/17/191902 HPI/ROS Admit Date/Time Admit Date/Time 17 January 2019 Hx of Present Illness Mr. Mendoza is an 83 yo Farsi-speaking man with history of COPD and CHF brought in by ambulance with one week of fatigue. History is limited, mostly per prior documentation and discussion with ED staff. I tried to speak to the patient using phone addressograph operator but according to the addressograph operator the patient was disoriented, speaking nonsense. Apparently the patient was recently admitted at [facility] and discharged to rehab. He was recently sent home from rehab. He has no primary care doctor but follows Dr. Recinos, a registered radiologic technologist at [facility]. He has a caregiver at home who knows the patient well and understood the patient to be HOME HOSPICE. The patient has two daughters who apparently do not visit often. When they came to see the patient today they were very concerned that he had been fatigued and bedridden for the past week and called EMS to bring him to ED. In the ED, Dr. Padilla was unable to find the original hospice or [facility] documentation. After long discussion with the two daughters a shared decision was made to make the patient DNR/DNR and "Selective treatment with bipap, antibiotics but no CPR. No intubation/pressors". In the ED, he was in respiratory distress and placed onto BiPAP. WBC 23.6, Cr 2.56 with unknown baseline. BNP 15k. CXR shows R lung atelectasis. I saw the patient soon after RT took him off BiPAP and he was very comfortable on nasal cannula. ROS Subjective hx not possible: pt non-verbal PMH/Family/Social Past Medical History UNKNOWN Medications Current Medications Ondansetron HCl (Zofran Inj) 4 mg ER BRIDGE PRN IV NAUSEA/VOMITING; Start 01/17/19 at 21:30; Stop 01/18/19 at 21:29 Acetaminophen (Tylenol Tab) 650 mg ER BRIDGE PRN PO .MILD PAIN 1-3 OR TEMP; Start 01/17/19 at 21:30; Stop 01/18/19 at 21:29 IV Flush (NS 3 ml) 3 ml PER PROTOCOL IV ; Start 01/17/19 at 22:00; Status UNV Ondansetron HCl (Zofran Inj) 4 mg Q6H PRN IV NAUSEA/VOMITING; Start 01/17/19 at 22:00; Status UNV Acetaminophen (Tylenol Tab) 650 mg Q6H PRN PO .PAIN 1-3 OR TEMP; Start 01/17/19 at 22:00; Status UNV Enoxaparin Sodium (Lovenox) 40 mg DAILY SC ; Start 01/18/19 at 09:00; Status UNV Coded Allergies: No Known Allergy (Unverified , 09/15/18) Past Surgical History UNKNOWN Visible pacemaker Past Surgical Hx: other Family History Significant Family History: no pertinent family hx Social History Smoking Status: Never smoker Exam/Review of Systems Vital Signs Vitals Vital Signs Date Temp Pulse Resp B/P (MAP) Pulse Ox O2 O2 Flow FiO2 Time Delivery Rate 01/17/19 2.0 21:37 01/17/19 75 100 40 20:42 01/17/19 22 115/75 Nasal 19:34 (88) Cannula 01/17/19 97.6 18:19 Exam Exam Gen: Elderly man supine in bed, well appearing no acute distress Eyes: PERRL, no icterus HEENT: Moist mucous membranes, clear oropharynx, Neck: Supple, no lymphadenopathy, no visible JVD. Card: Regular rate and rhythm, no murmurs Chest: Pacemaker left upper chest. Pulm: Clear to auscultation bilaterally Abd: Soft, nontender, nondistended. No hepatosplenomegaly. Ext: No cyanosis/clubbing/edema, good peripheral pulses. : Barry in place with yellow urine COREY CRUMP MD Jan 17, 2019 22:01
--- NOTE | 2019-01-17 22:28 | ERD ---
ER Documentation Chief Complaint Chief Complaint WEAKNESS. RECENTLY PLACED ON HOSPICE BUT FAMILY NEEDS EDUCATION HPI This is an 83-year-old male with a known history of COPD and congestive heart failure. The patient currently lives alone. He was recently discharged from a rehab facility after he had been diagnosed with his severe CHF exacerbation. The patient has a home health care nurse who came for several hours a day. Ther e was discussion of the patient being placed on hospice according to the 2 daughters however they stated they were not clearly educated on the terms of what hospice meant. The 2 daughters are now the medical decision making power of law firm consultant is for the patient. They stated that they did not have a close relationship to the patient until recently. They went to the house today and noticed that the patient appeared to be severely confused. They stated that he was having a very difficult time breathing. He has not eaten for roughly 1 day. Therefore 911 was called the patient was medially brought to the emergency department for further evaluation. The daughter states they do not not know who the patient's primary care physician is as they state he lives alone and has not had good medical care. They did state that he was recently at [facility] where he had been admitted prior to being placed in a rehab when he was treated for severe CHF exacerbation and saw the psychologist research assistant Dr. Fritz. ROS All systems reviewed and are negative except as per history of present illness. Medications Home Meds Active Scripts Furosemide* (Lasix*) 20 Mg Tablet, 20 MG PO DAILY, #60 TAB Prov:AUBREY VALENCIA 11/11/18 Cyanocobalamin* (Vitamin B12*) 500 Mcg Tab, 1000 MCG PO DAILY for 30 Days, #60 TAB 1 Refill Prov:GOMEZ TRISTAN MD 10/08/18 Fluticasone Propionate* (Fluticasone Propionate* Nasal) 50 Mcg/Hettick - 16 Gm Hettick.susp, 1 SPRAY NASAL BID for 30 Days, #1 BOT 1 Refill Prov:GOMEZ TRISTAN MD 10/08/18 Ferrous Sulfate* (Ferrous Sulfate*) 325 Mg Tabec, 325 MG PO DAILY for 30 Days, #30 TAB 6 Refills Prov:GOMEZ TRISTAN MD 10/08/18 Loratadine* (Loratadine*) 10 Mg Tablet, 10 MG PO DAILY for 30 Days, #30 TAB Prov:GOMEZ TRISTAN MD 10/08/18 Albuterol Sulfate (Proair Respiclick) 90 Mcg Aer.pow.ba, 2 PUFFS INHALATION Q6 PRN for WHEEZING AND SOB, #1 BOTTLE 2 Refills Prov:NICHOLAS BHAKTA MD 09/15/18 Docusate Sodium (Dok) 100 Mg Capsule, 100 MG PO Q12H PRN for .CONSTIPATION for 1 Day, #1 CAP otc Prov:NICHOLAS BHAKTA MD 09/15/18 Acetaminophen* (Tylenol*) 325 Mg Tablet, 650 MG PO Q6H PRN for .PAIN 1-3 OR TEMP for 1 Day, #1 TAB Prov:NICHOLAS BHAKTA MD 09/15/18 Aspirin Delayed Release (Aspirin Delayed Release) 81 Mg Tablet.dr, 81 MG PO DAILY for 30 Days, #30 Prov:NICHOLAS BHAKTA MD 09/15/18 Metoprolol Tartrate* (Lopressor*) 50 Mg Tab, 50 MG PO BID for 14 Days, #30 TAB Prov:NICHOLAS BHAKTA MD 09/15/18 [Nicotine (14 Mg/24 Hr)] 1 PATCH PATCH No Conflict Check, 1 PATCH TRANSDERM DAILY PRN for CONTROL WITHDRAWAL SYMPTOMS for 7 Days otc Prov:NICHOLAS BHAKTA MD 09/15/18 Allergies Allergies: Coded Allergies: No Known Allergy (Unverified , 09/15/18) PMhx/Soc History of Surgery: Yes (GALL BLADDER, PACEMAKER PLACEMENT ) Anesthesia Reaction: No Hx Neurological Disorder: No Hx Respiratory Disorders: No Hx Cardiac Disorders: Yes (AFIB, DIASTOLIC HEART FAILURE ) Hx Psychiatric Problems: No Hx Miscellaneous Medical Probl: Yes (COPD , V.B12 DEFICIENCY.) Hx Alcohol Use: No Hx Substance Use: No Hx Tobacco Use: No Smoking Status: Never smoker Physical Exam Vitals Vital Signs Date Temp Pulse Resp B/P (MAP) Pulse Ox O2 O2 Flow FiO2 Time Delivery Rate 01/17/19 2.0 21:37 01/17/19 75 100 40 20:42 01/17/19 82 22 115/75 100 Nasal 2.0 19:34 (88) Cannula 01/17/19 85 20 96 Nasal 2.0 19:22 Cannula 01/17/19 97.6 76 16 105/59 98 18:19 (74) Physical Exam Constitutional:Well-developed. Cachectic. In severe respiratory distress HEENT:Normocephalic. Atraumatic.Pupils were equal round reactive to light. Dry mucous membranes.No tonsillar exudates. Neck: No nuchal rigidity. No lymphadenopathy. No posterior cervical spine tenderness or step-offs. Respiratory: Not using accessory muscles of respiration.Lungs were clear to auscultation bilaterally. No rhonchi. No rales. Wheezing on end auscultation bilaterally Cardiovascular: Regular rate regular rhythm.No murmurs. No rubs were appreciated.S1, S2 normal. Distal pulses are palpable 2+ bilaterally. GI: Abdomen was soft. Nontender. Non Distended. No pulsatile abdominal masses or bruits. No rebound. No guarding. Bowel sounds were present and normal. Muscle skeletal: Full range of motion of both the upper and lower extremities bilaterally.Normal muscle tone.No assymetrical calf tenderness or swelling. Skin: No petechia, no purpura. No lesions on the palms or the soles of the feet. No maculopapular rash. NEURO: Patient was alert, awake but confused this patient did not appreciate that he was in the hospital, did not know the year and also was experiencing v isual hallucinations. The patient is Farsi speaking and his daughter was translating.No facial droop. Gait not observed as patient was too confused to ambulate. Result Diagram: 01/17/19190201/17/191902 Results 24 hrs Laboratory Tests Test 01/17/19 19:00 01/17/19 19:03 01/17/19 21:15 POC Venous Lactate 1.8 mmol/L White Blood Count 23.6 10^3/ul Red Blood Count 4.12 10^6/ul Hemoglobin 13.9 g/dl Hematocrit 41.0 % Mean Corpuscular Volume 99.5 fl Mean Corpuscular Hemoglobin 33.7 pg Mean Corpuscular 33.9 g/dl Hemoglobin Concent Red Cell Distribution Width 12.4 % Platelet Count 83 10^3/UL Mean Platelet Volume 12.6 fl Immature Granulocytes % 0.900 % Neutrophils % % Segmented Neutrophils 86 % % (Manual) Band Neutrophils % (Manual) 3 % Lymphocytes % % Lymphocytes % (Manual) 5 % Monocytes % % Monocytes % (Manual) 6 % Eosinophils % % Basophils % % Nucleated Red Blood Cells % 0.0 /100WBC Immature Granulocytes # 0.210 10^3/ul Neutrophils # 10^3/ul Neutrophils # (Manual) 20.5 10^3/ul Band Neutrophils # 0.7 10^3/ul Lymphocytes (Manual) 1.1 10^3/ul Lymphocytes # 10^3/ul Monocytes # 10^3/ul Monocytes # (Manual) 1.4 10^3/ul Eosinophils # 10^3/ul Basophils # 10^3/ul Nucleated Red Blood Cells # 10^3/ul Platelet Estimate DECREASED Giant Platelets 1 % Prothrombin Time 13.0 Sec Prothrombin Time Ratio 1.0 INR International 0.97 Normalized Ratio Activated 25.8 Sec Partial Thromboplast Time Sodium Level 133 mmol/L Potassium Level 3.5 mmol/L Chloride Level 84 mmol/L Carbon Dioxide Level 40 mmol/L Anion Gap 9 Blood Urea Nitrogen 112 mg/dl Creatinine 2.56 mg/dl Est Glomerular Filtrat mL/min Rate mL/min Glucose Level 160 mg/dl Calcium Level 8.4 mg/dl Total Bilirubin 1.1 mg/dl Direct Bilirubin 0.00 mg/dl Indirect Bilirubin 1.1 mg/dl Aspartate Amino 41 IU/L Transf (AST/SGOT) Alanine 31 IU/L Aminotransferase (ALT/SGPT) Alkaline Phosphatase 61 IU/L Troponin I 0.311 ng/ml B-Type Natriuretic Peptide 17040 PG/ML Total Protein 7.4 g/dl Albumin 3.7 g/dl Globulin 3.70 g/dl Albumin/Globulin Ratio 1.00 Amylase Level 94 U/L Lipase 38 U/L Blood Gas Specimen Source Blood arterial Arterial Blood Date Drawn 01/17/2019 9:20:21 PM Arterial Blood pH 7.484 (Temp corrected) Arterial Blood pCO2 46.7 mmhg (Temp correct) Arterial Blood pO2 141.3 mmHG (Temp corrected) Arterial Blood HCO3 34.3 mmol/L Arterial Blood Base Excess 9.5 mmol/L Arterial Blood 98.9 mmHG Oxygen Saturation Monster Test ACCEPTAB Arterial Blood Gas Left Radial Puncture Site Arterial 0.7 % Blood Carboxyhemoglobin Arterial Blood Methemoglobin 0.2 % Blood Gas A-a O2 Differential 90.2 mmHg Oxyhemoglobin Percent 98.0 % Blood Gas Temperature 37.0 C Blood Gas Respiration Rate 18.0 Blood Gas Actual 20 Respiration Rate Blood Gas Modality MASK - BIPAP FiO2 40.0 % Blood Gas IPAP/EPAP Ratio 15/5 Blood Gas Notified Whom Flor FARIA RCP Blood Gas Notified Time 01/17/2019 9:29:46 PM Current Medications Dose Sig/Nazario Start Time Status Last Medications Ordered Route PRN Stop Time Admin Dose (Trade) Reason Admin Sodium 1,770 ml BOLUS OVER 01/17/19 DC 01/17/19 Chloride 2 HOURS 18:52 19:07 (NS) STAT IV* 01/17/19 18:54 Ceftriaxone 50 ml @ ONCE STAT 01/17/19 DC 01/17/19 Sodium 100 mls/hr IVPB 18:52 19:23 01/17/19 19:21 Albuterol 5 mg ONCE STAT 01/17/19 DC 01/17/19 (Proventil INH 18:52 19:14 0.5% 01/17/19 18:54 (Neb)) 1 mg ONCE STAT 01/17/19 DC 01/17/19 Ipratropium INH 18:52 19:14 [place] 01/17/19 18:54 (Atrovent 0.02% (Neb)) 125 mg ONCE STAT 01/17/19 DC 01/17/19 Methylpredni IV 18:52 19:23 solone 01/17/19 18:54 Sodium Succinate (Solu-Medrol ) Aspirin 325 mg ONCE ONCE 01/17/19 DC 01/17/19 (Aspirin) PO 20:00 20:03 01/17/19 20:01 Ondansetron 4 mg ER BRIDGE 01/17/19 DC HCl PRN IV 21:30 (Zofran Inj) NAUSEA/VOMIT 01/17/19 21:51 ING 650 mg ER BRIDGE 01/17/19 DC Acetaminophe PRN PO 21:30 n (Tylenol .MILD PAIN 01/17/19 21:51 Tab) 1-3 OR TEMP IV Flush 3 ml PER 01/17/19 (NS 3 ml) PROTOCOL 22:00 IV Ondansetron 4 mg Q6H PRN 01/17/19 HCl IV 22:00 (Zofran Inj) NAUSEA/VOMIT ING 650 mg Q6H PRN 01/17/19 Acetaminophe PO .PAIN 22:00 n (Tylenol 1-3 OR TEMP Tab) Enoxaparin 30 mg DAILY SC 01/18/19 Sodium 09:00 (Lovenox) Aspirin 81 mg DAILY PO 01/18/19 (Halfprin) 09:00 Docusate 100 mg Q12H PRN 01/17/19 Sodium PO 22:00 (Colace) .CONSTIPATIO N 1 spray BID NASAL 01/18/19 Fluticasone 09:00 Propionate (Flonase 0.05% Nasal) Furosemide 20 mg DAILY PO 01/18/19 Future Hold (Lasix) 09:00 Loratadine 10 mg DAILY PO 01/18/19 (Claritin) 09:00 Metoprolol 50 mg BID PO 01/18/19 Tartrate 09:00 (Lopressor) Albuterol 2 puff Q6H RESP 01/17/19 (Ventolin THERAPY 22:00 Hfa) PRN INH WHEEZING AND SOB Nicotine 1 patch DAILY 01/18/19 (Nicoderm 14 TRANSDERM 09:00 Mg/ 24hr) Furosemide 20 mg BID 01/18/19 (Lasix) DIURETICS 06:00 IV Procedures/MDM The patient presented to the emergency department with an acute and persistent change in their mental status. The differential diagnosis is diverse however reversible causes such as hypoglycemia, opiate overdose, thiamine deficiency were immediately considered. The patient was placed on a monitoring analyst, continuous pulse oximetry and IV access was established. The patients airway was secure however hypoxic events such as anemia, shock, or severe pulmonary disease were all considered as etiologies in this patients presentation. Circulation assessed with good cap refill and did not require fluids or pressure support. Finger stick for rapid glucose determined to be normal. 12 Lead EKG tracing ordered and reviewed by myself showed: Electronic paced rhythm at 75 bpm and no arrhythmia. QRS duration widened with electronic jugular paced rhythm. No ST segment elevation No ST segment depression. No changes consistent with acute ischemia. The patient initially arrived he was in severe respiratory distress. He was given nebulizer treatments of albuterol and Atrovent. His respiratory distress did not improve. At this time he was placed on noninvasive mechanical ventilation. He was placed on a BiPAP. This did improve his wheezing and altered mental status which I also felt was contributed to CO2 narcosis. The patient's troponin was elevated. He received aspirin. The patient was in acute renal failure with a BUN of 112 and a creatinine of 2.56. This could be result of prerenal azotemia as the patient was also hypotensive. He did receive a liter bolus of normal saline. He also has a history of congestive heart failure so this was given as a gentle fluid hydration. his BNP was elevated at 15,400 however again the patient was also in renal failure which could be contributing to the elevated BNP. I had a significant lengthy conversation with both of the daughters. They stated that they were in agreement with the patient having selective treatment but the pulse form had not yet been signed. I indicated I would provide a verbal agreements to their terms as they stated they know with her father never wanted to undergo CPR mechanical ventilation or pressors. Therefore at this time the patient was made selective treatment with no CPR no pressors no intubation. He did receive IV antibiotics which included vancomycin and Zosyn even though he was not septic but did have Sirs criteria with leukocytosis of 23.6. After being placed on the BiPAP the patient had an arterial blood gas that showed significant improvement of his CO2 narcosis. Therefore at this time the BiPAP was removed. Dr. Purdy kindly will admit the patient. The patient will go to the telemetry service and again it is a DO NOT RESUSCITATE with selective treatment. A Barry catheter was placed by nursing staff in order to monitor the patient's urinary output. Urinalysis and urine culture will be sent. Critical Care: Time: 85 minutes Treatments/Evaluations: Close monitoring and treatment of unstable vital signs, cardiorespiratory, and neurologic status, while maintaining tight balance of fluid, respiratory, and cardiac interventions. Time does not include performing any of the above billable procedures. Departure Diagnosis: Primary Impression: COPD exacerbation Additional Impressions: CHF exacerbation Heart failure type: unspecified Qualified Codes: I50.9 - Heart failure, unspecified Carbon dioxide narcosis Non-STEMI (non-ST elevated myocardial infarction) Acute prerenal azotemia Condition: Serious DELMAR HALE MD Jan 17, 2019 22:25
[2019-01-17] MEDS ORDERED: LORAZEPAM 2 MG INJ IV ONE ×2 (23:00)
[2019-01-18] VITALS (13 sets, daily range): BP systolic 97–120; BP diastolic 50–58; PULSE 71–80; RESP 16–18; Ht 167.6 cm; Wt 61.0 kg
[2019-01-18] MEDS ORDERED: HALOPERIDOL 5 MG INJ IM ONE ×2 (05:30→09:00)
[2019-01-18] MEDS ORDERED: FUROSEMIDE 20 MG INJ IV SCH (06:00)
[2019-01-18] MEDS ORDERED: HALOPERIDOL 5 MG INJ IV ONE (09:00)
[2019-01-18] MEDS ORDERED: FUROSEMIDE 20 MG TAB PO SCH (09:00)
[2019-01-18] MEDS: NICOTINE (14 MG/24 HR) PATCH TRANSDERM SCH (13:15)
[2019-01-18] MEDS: LORATADINE 10 MG TAB PO SCH (13:15)
[2019-01-18] MEDS: ASPIRIN (EC) 81 MG TAB PO SCH (13:15)
[2019-01-18] MEDS: DOCUSATE SODIUM 100 MG CAP PO PRN (13:15)
[2019-01-18] MEDS: METOPROLOL 50 MG TAB PO SCH ×2 (13:16→21:00)
[2019-01-18] MEDS: FLUTICASONE 0.05% 16 GM NAS SPRAY NASAL SCH ×2 (13:17→21:52)
[2019-01-18] MEDS ORDERED: SOD CHLORIDE 0.9% 500 ML IV ONE (13:30)
[2019-01-18] MEDS: ENOXAPARIN 30 MG/0.3 ML SYG SC SCH (13:51)
--- NOTE | 2019-01-18 14:33 | PN ---
Date/Time of Note Date/Time of Note DATE: 01/18/19 TIME: 14:30 Assessment/Plan VTE Prophylaxis SCD applied (from Nsg): Yes Pharmacological prophylaxis: heparin Lines/Catheters IV Catheter Type (from Nrsg): Saline Lock Urinary Cath still in place: Yes Reason Cath still needed: urinary retention Assessment/Plan Hospital Course Somnelnt but arousable Alert but disoriented Dry oral mucosa Flat neck veins Clear lungs RRR SOft nt nd No edema A/P 83 yo male wtih diastolic CHF, COPD, possible cognitive impairment who presens with acute encephelopathy and JUANA - empiric antibiotics given leukocytosis and lethargy. low threshold to discontinue JUANA: - Fluid bolus - Hold lasix for now Diastolic CHF: - Closely monitor volume status Acute encephelopathy: - Daughters say he is very different than he was a week ago. Will CT head. Otherwise observe on abx and with volume bolus DNR Result Diagram: 01/18/19 0421 01/18/19 0421 Results 24hrs Laboratory Tests Test 01/17/19 19:00 01/17/19 19:03 01/17/19 21:15 01/17/19 22:23 POC Venous Lactate 1.8 White Blood Count 23.6 #H Red Blood Count 4.12 L Hemoglobin 13.9 L Hematocrit 41.0 L Mean Corpuscular 99.5 Volume Mean Corpuscular 33.7 H Hemoglobin Mean Corpuscular 33.9 Hemoglobin Concent Red Cell 12.4 Distribution Width Platelet Count 83 #L Mean Platelet 12.6 H Volume Immature 0.900 H Granulocytes % Neutrophils % Segmented 86 H Neutrophils % (Manual) Band Neutrophils % 3 (Manual) Lymphocytes % Lymphocytes % 5 L (Manual) Monocytes % Monocytes % 6 (Manual) Eosinophils % Basophils % Nucleated Red 0.0 Blood Cells % Immature 0.210 H Granulocytes # Neutrophils # Neutrophils # 20.5 H (Manual) Band Neutrophils # 0.7 H Lymphocytes 1.1 (Manual) Lymphocytes # Monocytes # Monocytes # 1.4 H (Manual) Eosinophils # Basophils # Nucleated Red Blood Cells # Platelet Estimate DECREASED Giant Platelets 1 H Prothrombin Time 13.0 # Prothrombin Time 1.0 Ratio INR International 0.97 Normalized Ratio Activated 25.[address] Time Sodium Level 133 L Potassium Level 3.5 Chloride Level 84 L Carbon Dioxide 40 H Level Anion Gap 9 Blood Urea 112 H Nitrogen Creatinine 2.56 H Est Glomerular Filtrat Rate mL/min Glucose Level 160 Calcium Level 8.4 Total Bilirubin 1.1 Direct Bilirubin 0.00 Indirect Bilirubin 1.1 Aspartate Amino 41 Transf (AST/SGOT) Alanine 31 Aminotransferase ( ALT/SGPT) Alkaline 61 Phosphatase Troponin I 0.311 *H B-Type Natriuretic 73944 H Peptide Total Protein 7.4 Albumin 3.7 Globulin 3.70 H Albumin/Globulin 1.00 Ratio Amylase Level 94 Lipase 38 Blood Gas Specimen Blood arterial Source Arterial Blood 01/17/2019 9:20:21 Date Drawn PM Arterial Blood pH 7.484 H (Temp corrected) Arterial Blood 46.7 H pCO2 (Temp correct) Arterial Blood pO2 141.3 H (Temp corrected) Arterial Blood 34.3 H HCO3 Arterial Blood 9.5 H Base Excess Arterial Blood 98.9 Oxygen Saturation Monster Test ACCEPTAB Arterial Blood Gas Left Radial Puncture Site Arterial 0.7 Blood Carboxyhemog lobin Arterial Blood 0.2 Methemoglobin Blood Gas A-a O2 90.2 H Differential Oxyhemoglobin 98.0 Percent Blood Gas 37.0 Temperature Blood Gas 18.0 Respiration Rate Blood Gas Actual 20 Respiration Rate Blood Gas Modality MASK - BIPAP FiO2 40.0 Blood Gas 15/5 IPAP/EPAP Ratio Blood Gas Notified Flor FARIA RCP Whom Blood Gas Notified 01/17/2019 9:29:46 Time PM Urine Color YELLOW Urine Clarity CLEAR Urine pH 6.0 Urine Specific 1.013 [place] Urine Ketones TRACE A Urine Nitrite NEGATIVE Urine Bilirubin NEGATIVE Urine Urobilinogen NEGATIVE Urine Leukocyte NEGATIVE Esterase Urine Microscopic 2 RBC Urine Microscopic 2 WBC Urine Hemoglobin 1+ H Urine Glucose NEGATIVE Urine Total NEGATIVE Protein Test 01/18/19 04:21 01/18/19 10:18 White Blood Count 18.3 #H Red Blood Count 3.78 L Hemoglobin 12.7 L Hematocrit 37.8 L Mean Corpuscular 100.0 Volume Mean Corpuscular 33.6 H Hemoglobin Mean Corpuscular 33.6 Hemoglobin Concent Red Cell 12.4 Distribution Width Platelet Count 72 L Mean Platelet 12.1 H Volume Immature 0.500 H Granulocytes % Neutrophils % 96.2 H Lymphocytes % 2.2 L Monocytes % 1.0 Eosinophils % 0.0 Basophils % 0.1 Nucleated Red 0.0 Blood Cells % Immature 0.100 H Granulocytes # Neutrophils # 17.6 H Lymphocytes # 0.4 L Monocytes # 0.2 L Eosinophils # 0.0 Basophils # 0.0 Nucleated Red 0.0 Blood Cells # Sodium Level 136 Potassium Level 3.5 Chloride Level 88 L Carbon Dioxide 39 H Level Anion Gap 9 Blood Urea 99 H Nitrogen Creatinine 2.20 H Est Glomerular Filtrat Rate mL/min Glucose Level 170 Hemoglobin A1c 4.9 Calcium Level 8.0 L Phosphorus Level 4.2 Magnesium Level 4.8 H Total Bilirubin 0.7 Direct Bilirubin 0.00 Indirect Bilirubin 0.7 Aspartate Amino 35 Transf (AST/SGOT) Alanine 26 Aminotransferase ( ALT/SGPT) Alkaline 49 Phosphatase Troponin I 0.254 *H 0.246 *H Total Protein 6.6 Albumin 3.4 Globulin 3.20 Albumin/Globulin 1.06 Ratio Thyroid 0.247 L Stimulating Hormone (TSH) Subjective 24 Hr Interval Summary Free Text/Dictation Per daughters, patient has had an acute decline in mentation and energy over past few days Patient's complaint is of being very thirsty, denies localizing complaints Exam/Review of Systems Exam Vitals Vital Signs Date Temp Pulse Resp B/P (MAP) Pulse Ox O2 O2 Flow FiO2 Time Delivery Rate 01/18/19 98.6 75 17 117/58 98 14:00 (77) 01/18/19 2.0 02:43 01/18/19 Nasal 02:15 Cannula 01/17/19 40 20:42 Intake and Output 01/17/19 01/17/19 01/18/19 1515:00 23:00 07:00 OutputOutput Total 700 ml BalanceBalance -700 ml Results Results 24hrs Laboratory Tests Test 01/17/19 19:00 01/17/19 19:03 01/17/19 21:15 01/17/19 22:23 POC Venous Lactate 1.8 White Blood Count 23.6 #H Red Blood Count 4.12 L Hemoglobin 13.9 L Hematocrit 41.0 L Mean Corpuscular 99.5 Volume Mean Corpuscular 33.7 H Hemoglobin Mean Corpuscular 33.9 Hemoglobin Concent Red Cell 12.4 Distribution Width Platelet Count 83 #L Mean Platelet 12.6 H Volume Immature 0.900 H Granulocytes % Neutrophils % Segmented 86 H Neutrophils % (Manual) Band Neutrophils % 3 (Manual) Lymphocytes % Lymphocytes % 5 L (Manual) Monocytes % Monocytes % 6 (Manual) Eosinophils % Basophils % Nucleated Red 0.0 Blood Cells % Immature 0.210 H Granulocytes # Neutrophils # Neutrophils # 20.5 H (Manual) Band Neutrophils # 0.7 H Lymphocytes 1.1 (Manual) Lymphocytes # Monocytes # Monocytes # 1.4 H (Manual) Eosinophils # Basophils # Nucleated Red Blood Cells # Platelet Estimate DECREASED Giant Platelets 1 H Prothrombin Time 13.0 # Prothrombin Time 1.0 Ratio INR International 0.97 Normalized Ratio Activated 25.[address] Time Sodium Level 133 L Potassium Level 3.5 Chloride Level 84 L Carbon Dioxide 40 H Level Anion Gap 9 Blood Urea 112 H Nitrogen Creatinine 2.56 H Est Glomerular Filtrat Rate mL/min Glucose Level 160 Calcium Level 8.4 Total Bilirubin 1.1 Direct Bilirubin 0.00 Indirect Bilirubin 1.1 Aspartate Amino 41 Transf (AST/SGOT) Alanine 31 Aminotransferase ( ALT/SGPT) Alkaline 61 Phosphatase Troponin I 0.311 *H B-Type Natriuretic 35608 H Peptide Total Protein 7.4 Albumin 3.7 Globulin 3.70 H Albumin/Globulin 1.00 Ratio Amylase Level 94 Lipase 38 Blood Gas Specimen Blood arterial Source Arterial Blood 01/17/2019 9:20:21 Date Drawn PM Arterial Blood pH 7.484 H (Temp corrected) Arterial Blood 46.7 H pCO2 (Temp correct) Arterial Blood pO2 141.3 H (Temp corrected) Arterial Blood 34.3 H HCO3 Arterial Blood 9.5 H Base Excess Arterial Blood 98.9 Oxygen Saturation Monster Test ACCEPTAB Arterial Blood Gas Left Radial Puncture Site Arterial 0.7 Blood Carboxyhemog lobin Arterial Blood 0.2 Methemoglobin Blood Gas A-a O2 90.2 H Differential Oxyhemoglobin 98.0 Percent Blood Gas 37.0 Temperature Blood Gas 18.0 Respiration Rate Blood Gas Actual 20 Respiration Rate Blood Gas Modality MASK - BIPAP FiO2 40.0 Blood Gas 15/5 IPAP/EPAP Ratio Blood Gas Notified Flor FARIA RCP Whom Blood Gas Notified 01/17/2019 9:29:46 Time PM Urine Color YELLOW Urine Clarity CLEAR Urine pH 6.0 Urine Specific 1.013 [place] Urine Ketones TRACE A Urine Nitrite NEGATIVE Urine Bilirubin NEGATIVE Urine Urobilinogen NEGATIVE Urine Leukocyte NEGATIVE Esterase Urine Microscopic 2 RBC Urine Microscopic 2 WBC Urine Hemoglobin 1+ H Urine Glucose NEGATIVE Urine Total NEGATIVE Protein Test 01/18/19 04:21 01/18/19 10:18 White Blood Count 18.3 #H Red Blood Count 3.78 L Hemoglobin 12.7 L Hematocrit 37.8 L Mean Corpuscular 100.0 Volume Mean Corpuscular 33.6 H Hemoglobin Mean Corpuscular 33.6 Hemoglobin Concent Red Cell 12.4 Distribution Width Platelet Count 72 L Mean Platelet 12.1 H Volume Immature 0.500 H Granulocytes % Neutrophils % 96.2 H Lymphocytes % 2.2 L Monocytes % 1.0 Eosinophils % 0.0 Basophils % 0.1 Nucleated Red 0.0 Blood Cells % Immature 0.100 H Granulocytes # Neutrophils # 17.6 H Lymphocytes # 0.4 L Monocytes # 0.2 L Eosinophils # 0.0 Basophils # 0.0 Nucleated Red 0.0 Blood Cells # Sodium Level 136 Potassium Level 3.5 Chloride Level 88 L Carbon Dioxide 39 H Level Anion Gap 9 Blood Urea 99 H Nitrogen Creatinine 2.20 H Est Glomerular Filtrat Rate mL/min Glucose Level 170 Hemoglobin A1c 4.9 Calcium Level 8.0 L Phosphorus Level 4.2 Magnesium Level 4.8 H Total Bilirubin 0.7 Direct Bilirubin 0.00 Indirect Bilirubin 0.7 Aspartate Amino 35 Transf (AST/SGOT) Alanine 26 Aminotransferase ( ALT/SGPT) Alkaline 49 Phosphatase Troponin I 0.254 *H 0.246 *H Total Protein 6.6 Albumin 3.4 Globulin 3.20 Albumin/Globulin 1.06 Ratio Thyroid 0.247 L Stimulating Hormone (TSH) Medications Medication Current Medications IV Flush (NS 3 ml) 3 ml PER PROTOCOL IV ; Start 01/17/19 at 22:00 Ondansetron HCl (Zofran Inj) 4 mg Q6H PRN IV NAUSEA/VOMITING; Start 01/17/19 at 22:00 Acetaminophen (Tylenol Tab) 650 mg Q6H PRN PO .PAIN 1-3 OR TEMP; Start 01/17/19 at 22:00 Enoxaparin Sodium (Lovenox) 30 mg DAILY SC Last administered on 01/18/19at 13:51; Admin Dose 30 MG; Start 01/18/19 at 09:00 Aspirin (Halfprin) 81 mg DAILY PO Last administered on 01/18/19at 13:15; Admin Dose 81 MG; Start 01/18/19 at 09:00 Docusate Sodium (Colace) 100 mg Q12H PRN PO .CONSTIPATION Last administered on 01/18/19 13:15; Admin Dose 100 MG; Start 01/17/19 at 22:00 Fluticasone Propionate (Flonase 0.05% Nasal) 1 spray BID NASAL Last administered on 01/18/19at 13:17; Admin Dose 1 SPRAY; Start 01/18/19 at 09:00 Furosemide (Lasix) 20 mg DAILY PO ; Start 01/18/19 at 09:00; Status Hold Loratadine (Claritin) 10 mg DAILY PO Last administered on 01/18/19at 13:15; Admin Dose 10 MG; Start 01/18/19 at 09:00 Metoprolol Tartrate (Lopressor) 50 mg BID PO Last administered on 01/18/19at 13:16; Admin Dose 50 MG; Start 01/18/19 at 09:00 Albuterol (Ventolin Hfa) 2 puff Q6H RESP THERAPY PRN INH WHEEZING AND SOB; Start 01/17/19 at 22:00 Nicotine (Nicoderm 14 Mg/ 24hr) 1 patch DAILY TRANSDERM Last administered on 01/18/19at 13:15; Admin Dose 1 PATCH; Start 01/18/19 at 09:00 Piperacillin Sod/ Tazobactam Sod 100 ml @ 200 mls/hr Q8 IVPB ; Start 01/18/19 at 14:00 ALEX OLIVAS MD Jan 18, 2019 14:33
[2019-01-18] MEDS: PIPER-TAZO 3.375 GM IV (PMX) 100 ML IVPB SCH ×2 (15:37→22:04)
[2019-01-18] MEDS: LEVALBUTEROL (NEB) 0.63 MG/3 ML AMP HHN SCH ×2 (16:36→20:00)
[2019-01-19] VITALS (17 sets, daily range): BP systolic 93–132; BP diastolic 45–68; PULSE 71–104; RESP 16–20
[2019-01-19] MEDS ORDERED: HYDROCODONE/APAP (5/325) TAB PO ONE (00:30)
[2019-01-19] MEDS: LEVALBUTEROL (NEB) 0.63 MG/3 ML AMP HHN SCH ×4 (01:05→20:49)
[2019-01-19] MEDS ORDERED: HALOPERIDOL 5 MG INJ IM ONE ×2 (03:30→04:00)
[2019-01-19] MEDS: PIPER-TAZO 3.375 GM IV (PMX) 100 ML IVPB SCH ×3 (05:19→21:59)
[2019-01-19] MEDS: ASPIRIN (EC) 81 MG TAB PO SCH (08:16)
[2019-01-19] MEDS: LORATADINE 10 MG TAB PO SCH (08:16)
[2019-01-19] MEDS: NICOTINE (14 MG/24 HR) PATCH TRANSDERM SCH (08:17)
[2019-01-19] MEDS: METOPROLOL 50 MG TAB PO SCH (08:18)
[2019-01-19] MEDS: FLUTICASONE 0.05% 16 GM NAS SPRAY NASAL SCH ×2 (08:18→21:59)
[2019-01-19] MEDS: ENOXAPARIN 30 MG/0.3 ML SYG SC SCH (08:20)
[2019-01-19] MEDS ORDERED: POTASSIUM CHLORIDE 20 MEQ POWDER FOR ORAL SOLN PO ONE (08:30)
[2019-01-19] MEDS ORDERED: SOD CHLORIDE 0.9% 500 ML IV ONE (11:30)
--- NOTE | 2019-01-19 12:40 | PN ---
Date/Time of Note Date/Time of Note DATE: 01/19/19 TIME: 12:35 Assessment/Plan VTE Prophylaxis Risk score (from Nsg)>0 risk: 5 SCD applied (from Nsg): Yes Pharmacological prophylaxis: heparin Lines/Catheters IV Catheter Type (from Nrsg): Saline Lock Urinary Cath still in place: Yes Reason Cath still needed: urinary retention Assessment/Plan Hospital Course Alert but disoriented Dry oral mucosa Flat neck veins Clear lungs RRR SOft nt nd No edema A/P 83 yo male wtih diastolic CHF, COPD, possible cognitive impairment who presens with acute encephelopathy and JUANA - I will continue empiric antibiotics given leukocytosis and lethargy. low threshold to discontinue - Overall I suspect this patient has dementia at baseline and may not improve much more. I communicated this to his daughter at bedside who will begin planning for longterm JUANA: - Improved with fluids. Remains a bit dry on exam. Will give another 500 cc bolus and monitor - Fluid bolus - Hold lasix for now Diastolic CHF: - Closely monitor volume status Acute encephelopathy: - Suspect element of toxic/metabolic given electrolyte derangements - Continue to monitor Hypokalemia: - Replete as needed DNR Result Diagram: 01/19/19 0545 01/19/19 0545 Results 24hrs Laboratory Tests Test 01/19/19 05:45 White Blood Count 16.0 H Red Blood Count 3.42 L Hemoglobin 11.7 L Hematocrit 34.1 L Mean Corpuscular Volume 99.7 Mean Corpuscular Hemoglobin 34.2 H Mean Corpuscular Hemoglobin Concent 34.3 Red Cell Distribution Width 12.6 Platelet Count 76 L Mean Platelet Volume 13.4 H Immature Granulocytes % 0.500 H Neutrophils % 84.7 H Lymphocytes % 7.7 L Monocytes % 6.9 Eosinophils % 0.1 Basophils % 0.1 Nucleated Red Blood Cells % 0.0 Immature Granulocytes # 0.080 H Neutrophils # 13.6 H Lymphocytes # 1.2 Monocytes # 1.1 H Eosinophils # 0.0 Basophils # 0.0 Nucleated Red Blood Cells # 0.0 Sodium Level 133 L Potassium Level 2.7 *L Chloride Level 88 L Carbon Dioxide Level 35 H Anion Gap 10 Blood Urea Nitrogen 92 H Creatinine 2.08 H Est Glomerular Filtrat Rate mL/min Glucose Level 103 # Calcium Level 7.5 L Subjective 24 Hr Interval Summary Free Text/Dictation Patient slightly more alert today, but remains encephelopathic according to his daughter at bedside No distress, denies pain Exam/Review of Systems Exam Vitals Vital Signs Date Temp Pulse Resp B/P (MAP) Pulse Ox O2 O2 Flow FiO2 Time Delivery Rate 01/19/19 97.8 75 17 102/45 97 11:29 (64) 01/19/19 2.0 10:01 01/19/19 Nasal 28 10:00 Cannula Intake and Output 01/18/19 01/18/19 01/19/19 1515:00 23:00 07:00 IntakeIntake Total 1440 ml 1100 ml OutputOutput Total 750 ml 750 ml BalanceBalance 690 ml 350 ml Results Results 24hrs Laboratory Tests Test 01/19/19 05:45 White Blood Count 16.0 H Red Blood Count 3.42 L Hemoglobin 11.7 L Hematocrit 34.1 L Mean Corpuscular Volume 99.7 Mean Corpuscular Hemoglobin 34.2 H Mean Corpuscular Hemoglobin Concent 34.3 Red Cell Distribution Width 12.6 Platelet Count 76 L Mean Platelet Volume 13.4 H Immature Granulocytes % 0.500 H Neutrophils % 84.7 H Lymphocytes % 7.7 L Monocytes % 6.9 Eosinophils % 0.1 Basophils % 0.1 Nucleated Red Blood Cells % 0.0 Immature Granulocytes # 0.080 H Neutrophils # 13.6 H Lymphocytes # 1.2 Monocytes # 1.1 H Eosinophils # 0.0 Basophils # 0.0 Nucleated Red Blood Cells # 0.0 Sodium Level 133 L Potassium Level 2.7 *L Chloride Level 88 L Carbon Dioxide Level 35 H Anion Gap 10 Blood Urea Nitrogen 92 H Creatinine 2.08 H Est Glomerular Filtrat Rate mL/min Glucose Level 103 # Calcium Level 7.5 L Medications Medication Current Medications IV Flush (NS 3 ml) 3 ml PER PROTOCOL IV ; Start 01/17/19 at 22:00 Ondansetron HCl (Zofran Inj) 4 mg Q6H PRN IV NAUSEA/VOMITING; Start 01/17/19 at 22:00 Acetaminophen (Tylenol Tab) 650 mg Q6H PRN PO .PAIN 1-3 OR TEMP Last administered on 01/18/19at 20:20; Admin Dose 650 MG; Start 01/17/19 at 22:00 Enoxaparin Sodium (Lovenox) 30 mg DAILY SC Last administered on 01/18/19 13:51; Admin Dose 30 MG; Start 01/18/19 at 09:00; Status Hold Docusate Sodium (Colace) 100 mg Q12H PRN PO .CONSTIPATION Last administered on 01/18/19 13:15; Admin Dose 100 MG; Start 01/17/19 at 22:00 Fluticasone Propionate (Flonase 0.05% Nasal) 1 spray BID NASAL Last administered on 01/19/19 08:18; Admin Dose 1 SPRAY; Start 01/18/19 at 09:00 Furosemide (Lasix) 20 mg DAILY PO ; Start 01/18/19 at 09:00; Status Hold Nicotine (Nicoderm 14 Mg/ 24hr) 1 patch DAILY TRANSDERM Last administered on 01/19/19 08:17; Admin Dose 1 PATCH; Start 01/18/19 at 09:00 Piperacillin Sod/ Tazobactam Sod 100 ml @ 200 mls/hr Q8 IVPB Last administered on 01/19/19 05:19; Admin Dose 200 MLS/HR; Start 01/18/19 at 14:00 Levalbuterol (Xopenex Neb) 0.63 mg Q6H RESP THERAPY HHN Last administered on 01/19/19 09:59; Admin Dose 0.63 MG; Start 01/18/19 at 16:00 Levalbuterol (Xopenex Neb) 0.63 mg Q4H RESP THERAPY PRN HHN SHORTNESS OF BREATH; Start 01/18/19 at 15:30 ALEX OLIVAS MD Jan 19, 2019 12:40
[2019-01-19] MEDS ORDERED: POTASSIUM CHLORIDE 100 ML IVPB ONE (17:30)
--- NOTE | 2019-01-19 20:23 | CONS ---
DATE OF ADMISSION: 01/17/2019 DATE OF CONSULTATION: TYPE OF CONSULTATION: Nephrology. REASON FOR CONSULTATION: Acute kidney injury, electrolyte abnormality. PHYSICIAN REQUESTING CONSULT: Saleem Arora MD HISTORY OF PRESENT ILLNESS: This is an 83-year-old male with past medical history of COPD and histor y of CHF, who was brought into [facility] Emergency Room with shortness of breath a nd fatigue. The patient apparently was recently admitted to [facility] and discharged to re habilitation. At the rehabilitation center, the patient was fatigued and bedridden with decline in o verall status. As a result, he came into the emergency room. Upon arrival, the patient was in respi ratory distress, was on BiPAP. The patient had elevated white count of 23,000 and BNP of 15,000. Ch est x-ray showed right lung atelectasis. The patient was placed on IV antibiotics and diuretic thera py and admitted to med-surg. In terms of patient's renal history, the patient had a recent baseline creatinine of approximately 1. 4 to 1.6 mg/dL. On admission, the patient had a creatinine of 2.2, which is improved to 1.89 mg/dL. During this time, the patient has been receiving antibiotic therapy and IV fluids. The patient also did receive diuretic therapy. There have been no reports of hemoptysis, hematemesis, or hematochezi a. PAST MEDICAL HISTORY: History of COPD, history of CHF, history of vitamin B12 deficiency, and histor y of arrhythmia. PAST SURGICAL HISTORY: Status post pacemaker placement. FAMILY HISTORY: No family history of kidney disease. SOCIAL HISTORY: No active drug use or alcohol use. MEDICATIONS: The patient's medications have been reviewed. REVIEW OF SYSTEMS: Unable to do adequate review of systems as the patient is altered. Pertinent pos itives as obtained by reviewing medical records, speaking to hospital staff, seeing HPI; otherwise ne gative. PHYSICAL EXAMINATION: VITAL SIGNS: Blood pressure 126/66, respiration 19, pulse 75, temperature 97.5. HEENT: Head is normocephalic. NECK: Supple. HEART: Regular rate. LUNGS: Show diminished breath sounds at the base. ABDOMEN: Soft, nontender to palpation without rebound or guarding. EXTREMITIES: Negative for clubbing or cyanosis, no edema. DERMATOLOGIC: No rashes. MUSCULOSKELETAL: No joint effusions. NEUROLOGIC: Limited exam due to lack of patient cooperation. LABORATORY DATA: Has been reviewed. IMAGING STUDIES: Have been reviewed. ASSESSMENT AND PLAN: This is an 83-year-old male: 1. Nonoliguric acute kidney injury on top of chronic kidney disease stage IIIB/IV with a baseline cr eatinine around 1.5 mg/dL. Etiology of acute kidney injury is likely secondary to hemodynamics, seps is, and diuretics. The patient's urinalysis shows no evidence of active sediment. The patient's napoleon al function has improved with volume expansion. Recommendation at this point is to continue current treatment plan. Continue IV antibiotics. We will continue gentle IV hydration. Continue supportive care, renal dose of medications, and avoid nephrotoxins. 2. Hyperkalemia. Etiology is likely secondary to total body deficit, diuretic therapy. The patient 's potassium levels have been improving. Continue to monitor and replete. 3. Hyponatremia secondary to acute kidney injury causing decreased free water urinary excretion. Co ntinue to monitor closely and limit free water intake. 4. Anemia. Continue to monitor hemoglobin and hematocrit levels. 5. Mineral bone disorder. Monitor calcium and phosphorus levels. 6. Sepsis secondary to pneumonia. Continue current antibiotic regimen. Cultures have been reviewed . 7. History of diastolic heart failure. The patient appears euvolemic to hypokalemic. Continue to m onitor. 8. Acute encephalopathy. Etiology is toxic metabolic. Continue to monitor closely. Continue to tr eat underlying sepsis. Thank you, Dr. Arora, for this interesting consult. It will be a pleasure to follow patient with chioma walter throughout the hospital course. Dictated By: NATI LUONG DO NR/NTS Conf#: [id number] DID#: [id number] CC: SALEEM ARORA MD;*EndCC*
[2019-01-19] MEDS ORDERED: LORAZEPAM 2 MG INJ IV ONE (22:30)
[2019-01-20] VITALS (13 sets, daily range): BP systolic 102–160; BP diastolic 51–72; PULSE 66–82; RESP 18–20
[2019-01-20] MEDS: LEVALBUTEROL (NEB) 0.63 MG/3 ML AMP HHN SCH ×4 (02:21→20:13)
[2019-01-20] MEDS: PIPER-TAZO 3.375 GM IV (PMX) 100 ML IVPB SCH ×3 (05:55→22:04)
[2019-01-20] MEDS: POTASSIUM CHLORIDE 100 ML IVPB SCH ×2 (10:10→13:10)
[2019-01-20] MEDS: FLUTICASONE 0.05% 16 GM NAS SPRAY NASAL SCH ×2 (10:10→20:31)
[2019-01-20] MEDS: NICOTINE (14 MG/24 HR) PATCH TRANSDERM SCH (10:10)
[2019-01-20] MEDS: FERROUS SULFATE (EC) 325 MG TAB PO SCH (10:11)
[2019-01-20] MEDS: CYANOCOBALAMIN 500 MCG TAB PO SCH (10:11)
[2019-01-20] MEDS: SOD CHLORIDE 0.9% 1,000 ML IV SCH (10:25)
--- NOTE | 2019-01-20 12:00 | RADRPT ---
Echocardiogram Report Patient Name: New SIMMS ID: [id number] : 1935 (83y 10m)Study Date: 01/19/2019 3:03:48 PM Gender: MAccession #: [id number] Tech: Mikael [facility] [place] Location: [id number]- Ref.Physician: ALEX OLIVAS Height(Cm): BSA: Weight(Kg): Quality: Technically Difficult StudyOrder Physician: ALEX OLIVAS Account #: Procedures: Echocardiographic Report: Transthoracic echocardiogram with complete 2D, M-Mode, and doppler examination. Indications: NSTEMI. Measurements: 2D/M Mode Doppler Measurement Value Normal Range Measurement Value Normal Range LVIDd 2D 3.9 [ 4.2 - 5.8 ] cm AV Peak Franklyn 1.3 [ 100.0 - 170.0 ] cm/sec LVIDs 2D 2.7 [ 2.5 - 4.0 ] cm AV Peak PG 7.0 [ 2.0 - 9.0 ] mmHg LVPWd 2D 1.5 [ 0.6 - 1.0 ] cm LVOT Peak Franklyn 1.1 [ 70.0 - 110.0 ] cm/sec IVSd 2D 1.5 [ 0.6 - 1.0 ] cm LVOT Peak PG 5.0 [ 2.0 - 6.0 ] mmHg AoR Diam 2D 1.8 [ 2.6 - 3.4 ] cm MV E Peak Franklyn 1.5 [ 60.0 - 130.0 ] cm/sec EDV 2D 67.5 [ 62.0 - 150.0 ] ml MV A Peak Franklyn 0.2 [ 100.0 - 120.0 ] cm/sec ESV 2D 26.8 [ 21.0 - 61.0 ] ml MV E/A 6.2 [ 0.8 - 1.5 ] ratio EF 2D 60.3 [ 52.0 - 72.0 ] percent MV Peak Franklyn 1.6 [ 60.0 - 130.0 ] cm/sec LA Dimen 2D 4.0 [ 3.0 - 4.0 ] cm MV Peak PG 10.0 [ 1.0 - 10.0 ] mmHg MV Mean Franklyn 0.9 cm/sec MV Mean PG 4.0 mmHg MV Decel Time 208 [ 104 - 258 ] msec Lat E` Franklyn 0.1 [ 10.0 - 15.0 ] cm/sec Lateral E/E` 16.0 [ 1.0 - 2.0 ] ratio MV E/A 6.2 [ 0.8 - 1.5 ] ratio MV VTI 41.7 cm TR Peak Franklyn 2.8 [ 100.0 - 280.0 ] cm/sec TR Peak PG 31.0 mmHg RVSP 34.0 [ 10.0 - 36.0 ] mmHg Findings: Left Ventricle: Normal left ventricular systolic function. Left ventricle not well visualized. Moderate concentric left ventricular hypertrophy. Ejection fraction is visually estimated at 60 %. Tissue Doppler/Mitral Doppler indices are consistent with pseudonormalization with mildly elevated left atrial pressure (Stage II diastolic dysfunction). Right Ventricle: Normal right ventricular size. Normal right ventricular systolic function. Left Atrium: The left atrium is normal in size. Right Atrium: There is moderate enlargement of right atrium. Mitral Valve: Anterior mitral valve leaflet appears moderately thickened. Moderate mitral annular calcification. Moderate mitral valve regurgitation. Aortic Valve: No significant aortic stenosis or insufficiency. Aortic cusps appear mildly calcified. Tricuspid Valve: Normal appearance of the tricuspid valve. The estimated Peak RVSP is 34 mmHg. There is mild to moderate tricuspid regurgitation. Pericardium: Normal pericardium with no significant pericardial effusion. Aorta: Normal aortic root. IVC: Normal size and normal respiratory collapse consistent with normal right atrial pressure. Conclusions: Normal left ventricular systolic function. Left ventricle not well visualized. Moderate concentric left ventricular hypertrophy. Ejection fraction is visually estimated at 60 %. Tissue Doppler/Mitral Doppler indices are consistent with pseudonormalization with mildly elevated left atrial pressure (Stage II diastolic dysfunction). Normal right ventricular size. Normal right ventricular systolic function. The left atrium is normal in size. There is moderate enlargement of right atrium. Moderate mitral valve regurgitation. No significant aortic stenosis or insufficiency. The estimated Peak RVSP is 34 mmHg. There is mild to moderate tricuspid regurgitation. Normal pericardium with no significant pericardial effusion. Electronically Signed By: Marlon Johnson 2019-01-20 11:59:46 PDT
--- NOTE | 2019-01-20 12:34 | PN ---
Date/Time of Note Date/Time of Note DATE: 01/20/19 TIME: 12:33 Assessment/Plan VTE Prophylaxis Risk score (from Ns)>0 risk: 4 SCD applied (from Ns): Yes Pharmacological prophylaxis: NA/contraindicated Pharm contraindication: other Lines/Catheters IV Catheter Type (from [facility]): Peripheral IV Urinary Cath still in place: Yes Reason Cath still needed: other (indicate) Assessment/Plan Hospital Course SUBJECTIVE: Patient remains confused. On bilateral soft wrist restraints. OBJECTIVE: Physical Exam General: Adequately build 83 year-old male lying in bed in no apparent distress. HEENT: Normocephalic, atraumatic. Eyes: Anicteric sclerae, conjunctivae clear. ENT: Nasal septum midline, oral mucosa moist. Neck supple. Respiratory: Bilaterally diminished breath sounds. No use of accessory muscles of respiration. No adventitious breath sounds. Cardiovascular: S1, S2 heard. Regular rate and rhythm. Abdomen: Soft, nontender, and nondistended. Bowel sounds positive in all 4 quadrants. Genitourinary: Deferred. Extremities: No cyanosis, no clubbing, no edema. Peripheral pulses palpable. Neurologic: The patient remains confused. Farsi speaking only. Labs & Vitals per chart ASSESSMENT & PLAN 83-year-old male with comorbidities including hypertension, CAD, CHF, COPD and permanent pacemaker placement, who was brought in from his [facility] facility because of her reported fatigue for 1 week, who was found to have underlying JUANA, leukocytosis, and minimally elevated troponins, who was admitted to inpatient setting for further treatment and evaluation. 1. Acute respiratory failure. Hypoxic. Etiology could be multifactorial. Continue inhaled bronchodilators. Continue supplemental oxygen 2. Acute kidney injury. Unknown baseline creatinine. Being followed by nephrology. Use nephrotoxic drugs with caution. 3. Leukocytosis. Etiology unclear. Remains afebrile. On empiric antimicrobials. WBC trending down. 4. Diastolic heart failure. Closely monitor volume status. Diuresis as clinically indicated. 5. Acute encephalopathy. Etiology unclear. Brain CT scan negative. Most probably toxic metabolic in origin. 6. NSTEMI. Most probably a type II event in the setting of underlying acute kidney injury. 6. Fluids, electrolytes, and nutrition. Pured diet. Aspiration precautions. 7. DVT prophylaxis. Bilateral SCDs. 8. Plan. Continue inhaled bronchodilators. Continue to monitor renal function closely. Await clinical improvement. The patient was seen in collaboration with Dr. Azevedo. Result Diagram: 01/20/19 0516 01/20/19 0516 Results 24hrs Laboratory Tests Test 01/19/19 13:00 01/19/19 18:45 01/20/19 05:16 Sodium Level 133 L 137 Potassium Level 3.3 L 3.2 L Chloride Level 91 L 96 L Carbon Dioxide Level 30 33 H Anion Gap 12 8 Blood Urea Nitrogen 86 H 78 H Creatinine 1.89 H 1.75 H Est Glomerular Filtrat Rate mL/min Glucose Level 160 108 # Calcium Level 7.5 L 7.9 L Urine Color YELLOW Urine Clarity SLIGHTLY CLOUDY A Urine pH 6.0 Urine Specific [place] 1.014 Urine Ketones NEGATIVE Urine Nitrite NEGATIVE Urine Bilirubin NEGATIVE Urine Urobilinogen NEGATIVE Urine Leukocyte Esterase 3+ H Urine Microscopic RBC > 182 H Urine Microscopic WBC 20 H Urine Bacteria FEW A Urine Mucus FEW A Urine Hemoglobin 3+ H Urine Random Creatinine 76.37 Urine Random Sodium 18 L Urine Glucose NEGATIVE Urine Total Protein 68.0 H White Blood Count 13.3 H Red Blood Count 3.37 L Hemoglobin 11.3 L Hematocrit 33.3 L Mean Corpuscular Volume 98.8 Mean Corpuscular Hemoglobin 33.5 H Mean Corpuscular 33.9 Hemoglobin Concent Red Cell Distribution Width 12.7 Platelet Count 93 #L Mean Platelet Volume 13.1 H Immature Granulocytes % 0.500 H Neutrophils % 77.7 H Lymphocytes % 11.7 L Monocytes % 9.7 Eosinophils % 0.3 Basophils % 0.1 Nucleated Red Blood Cells % 0.0 Immature Granulocytes # 0.060 H Neutrophils # 10.3 H Lymphocytes # 1.6 Monocytes # 1.3 H Eosinophils # 0.0 Basophils # 0.0 Nucleated Red Blood Cells # 0.0 Phosphorus Level 2.8 Magnesium Level 4.1 H Total Bilirubin 1.0 Direct Bilirubin 0.00 Indirect Bilirubin 1.0 Aspartate Amino 61 H Transf (AST/SGOT) Alanine 34 Aminotransferase (ALT/SGPT) Alkaline Phosphatase 50 Total Protein 6.4 Albumin 3.1 L Globulin 3.30 H Albumin/Globulin Ratio 0.93 Exam/Review of Systems Exam Vitals Vital Signs Date Temp Pulse Resp B/P (MAP) Pulse Ox O2 O2 Flow FiO2 Time Delivery Rate 01/20/19 97.5 72 18 118/59 93 Nasal 12:24 (78) Cannula 01/20/19 2.0 08:51 01/19/19 28 13:40 Intake and Output 01/19/19 01/19/19 01/20/19 1515:00 23:00 07:00 IntakeIntake Total 500 ml 600 ml 500 ml OutputOutput Total 600 ml 800 ml BalanceBalance 500 ml 0 ml -300 ml Results Results 24hrs Laboratory Tests Test 01/19/19 13:00 01/19/19 18:45 01/20/19 05:16 Sodium Level 133 L 137 Potassium Level 3.3 L 3.2 L Chloride Level 91 L 96 L Carbon Dioxide Level 30 33 H Anion Gap 12 8 Blood Urea Nitrogen 86 H 78 H Creatinine 1.89 H 1.75 H Est Glomerular Filtrat Rate mL/min Glucose Level 160 108 # Calcium Level 7.5 L 7.9 L Urine Color YELLOW Urine Clarity SLIGHTLY CLOUDY A Urine pH 6.0 Urine Specific [place] 1.014 Urine Ketones NEGATIVE Urine Nitrite NEGATIVE Urine Bilirubin NEGATIVE Urine Urobilinogen NEGATIVE Urine Leukocyte Esterase 3+ H Urine Microscopic RBC > 182 H Urine Microscopic WBC 20 H Urine Bacteria FEW A Urine Mucus FEW A Urine Hemoglobin 3+ H Urine Random Creatinine 76.37 Urine Random Sodium 18 L Urine Glucose NEGATIVE Urine Total Protein 68.0 H White Blood Count 13.3 H Red Blood Count 3.37 L Hemoglobin 11.3 L Hematocrit 33.3 L Mean Corpuscular Volume 98.8 Mean Corpuscular Hemoglobin 33.5 H Mean Corpuscular 33.9 Hemoglobin Concent Red Cell Distribution Width 12.7 Platelet Count 93 #L Mean Platelet Volume 13.1 H Immature Granulocytes % 0.500 H Neutrophils % 77.7 H Lymphocytes % 11.7 L Monocytes % 9.7 Eosinophils % 0.3 Basophils % 0.1 Nucleated Red Blood Cells % 0.0 Immature Granulocytes # 0.060 H Neutrophils # 10.3 H Lymphocytes # 1.6 Monocytes # 1.3 H Eosinophils # 0.0 Basophils # 0.0 Nucleated Red Blood Cells # 0.0 Phosphorus Level 2.8 Magnesium Level 4.1 H Total Bilirubin 1.0 Direct Bilirubin 0.00 Indirect Bilirubin 1.0 Aspartate Amino 61 H Transf (AST/SGOT) Alanine 34 Aminotransferase (ALT/SGPT) Alkaline Phosphatase 50 Total Protein 6.4 Albumin 3.1 L Globulin 3.30 H Albumin/Globulin Ratio 0.93 Medications Medication Current Medications IV Flush (NS 3 ml) 3 ml PER PROTOCOL IV ; Start 01/17/19 at 22:00 Ondansetron HCl (Zofran Inj) 4 mg Q6H PRN IV NAUSEA/VOMITING; Start 01/17/19 at 22:00 Enoxaparin Sodium (Lovenox) 30 mg DAILY SC Last administered on 01/18/19 13:51; Admin Dose 30 MG; Start 01/18/19 at 09:00; Status Hold Docusate Sodium (Colace) 100 mg Q12H PRN PO .CONSTIPATION Last administered on 01/18/19 13:15; Admin Dose 100 MG; Start 01/17/19 at 22:00 Fluticasone Propionate (Flonase 0.05% Nasal) 1 spray BID NASAL Last administered on 01/20/19 10:10; Admin Dose 1 SPRAY; Start 01/18/19 at 09:00 Nicotine (Nicoderm 14 Mg/ 24hr) 1 patch DAILY TRANSDERM Last administered on 01/20/19 10:10; Admin Dose 1 PATCH; Start 01/18/19 at 09:00 Piperacillin Sod/ Tazobactam Sod 100 ml @ 200 mls/hr Q8 IVPB Last administered on 01/20/19 05:55; Admin Dose 200 MLS/HR; Start 01/18/19 at 14:00 Levalbuterol (Xopenex Neb) 0.63 mg Q6H RESP THERAPY HHN Last administered on 01/20/19 08:49; Admin Dose 0.63 MG; Start 01/18/19 at 16:00 Levalbuterol (Xopenex Neb) 0.63 mg Q4H RESP THERAPY PRN HHN SHORTNESS OF BREATH; Start 01/18/19 at 15:30 Acetaminophen (Tylenol Tab) 650 mg Q6H PRN PO .PAIN 1-3 OR TEMP; Start 01/19/19 at 13:00 Cyanocobalamin (Vitamin B12) 1,000 mcg DAILY PO Last administered on 01/20/19 10:11; Admin Dose 1,000 MCG; Start 01/20/19 at 09:00 Ferrous Sulfate (Ferrous Sulfate (Ec)) 325 mg DAILY PO Last administered on 01/20/19 10:11; Admin Dose 325 MG; Start 01/20/19 at 09:00 Potassium Chloride 100 ml @ 50 mls/hr Q2H IVPB Last administered on 01/20/19at 10:10; Admin Dose 50 MLS/HR; Start 01/20/19 at 09:00; Stop 01/20/19 at 12:59 Sodium Chloride 1,000 ml @ 40 mls/hr Q24H IV Last administered on 01/20/19at 10:25; Admin Dose 40 MLS/HR; Start 01/20/19 at 09:00 AUGUSTO CHENEY NP Jan 20, 2019 12:34
--- NOTE | 2019-01-20 14:25 | PN ---
DATE: 01/20/2019 SUBJECTIVE: The patient was transferred from med/surg to telemetry. The patient remains markedly co nfused, agitated. No other events noted. OBJECTIVE: VITAL SIGNS: Blood pressure is 103/51, pulse 73, respiration 18, temperature 97.9. HEENT: Head is normocephalic. NECK: Supple. HEART: Regular rate. LUNGS: Show diminished breath sounds at the base. ABDOMEN: Soft, nontender to palpation without rebound or guarding. EXTREMITIES: Negative for clubbing, cyanosis, no edema. DERMATOLOGIC: No rashes. MUSCULOSKELETAL: No joint effusion. NEUROLOGIC: No change in exam. MEDICATIONS: Reviewed. LABORATORY DATA: Has been reviewed. Urinalysis shows FENa less than 1%, protein creatinine ratio ap proximately 900 mg/g of creatinine. Urinalysis was reviewed. IMAGING: Renal ultrasound was reviewed. ASSESSMENT AND PLAN: 1. Nonoliguric acute kidney injury on top of chronic kidney disease stage IIIB/IV with previous base line creatinine around 1.5 mg/dL. Etiology of acute kidney injury is secondary to hemodynamics, volu me depletion. The patient's urinalysis shows FENa less than 1%, consistent with prerenal etiology. Renal function has been improving with volume expansion. At this point, continue current treatment p ryan, supportive care, renally dose all meds. Would continue gentle IV hydration. 2. Hypokalemia. Replete with potassium chloride. 3. Alkalosis. Etiology may be metabolic versus compensatory. Continue to monitor. Consider checki ng ABG. 4. Hyponatremia secondary to acute kidney injury, improved. Continue to monitor. 5. Anemia. Monitor hemoglobin and hematocrit levels. 6. Mineral bone disorder. Monitor calcium and phosphorus levels. 7. Sepsis secondary to pneumonia. Continue current antibiotic regimen. 8. History of diastolic heart failure. The patient appears euvolemic on exam. Continue to monitor. Would hold diuretic therapy. 9. Acute encephalopathy. Etiology is toxic metabolic. Continue to monitor. Dictated By: NATI LUONG DO NR/NTS Conf#: [id number] DID#: [id number] CC: COREY CRUMP MD;*EndCC*
[2019-01-21] VITALS (14 sets, daily range): BP systolic 120–138; BP diastolic 54–63; PULSE 69–86; RESP 15–19
[2019-01-21] MEDS: LEVALBUTEROL (NEB) 0.63 MG/3 ML AMP HHN SCH ×4 (01:56→19:50)
[2019-01-21] MEDS: PIPER-TAZO 3.375 GM IV (PMX) 100 ML IVPB SCH ×3 (05:32→21:52)
[2019-01-21] MEDS ORDERED: POTASSIUM CHLORIDE (SR) 20 MEQ TAB PO STA (08:33)
--- NOTE | 2019-01-21 09:00 | PN ---
DATE: 01/21/2019 SUBJECTIVE: The patient is stable, no events overnight. No fevers, chills, nausea or vomiting. The patient did pull out his Barry catheter with some mild hematuria, resolved. The patient has cathete r in place. OBJECTIVE: VITAL SIGNS: Blood pressure is 130/62, respirations 15, pulse 79, temperature 98.0. HEENT: Head is normocephalic. NECK: Supple. HEART: Regular rate. LUNGS: Show diminished breath sounds at the base. ABDOMEN: Soft, nontender to palpation without rebound or guarding. EXTREMITIES: Negative for clubbing, cyanosis, no edema. DERMATOLOGIC: No rashes. MUSCULOSKELETAL: No joint effusion. NEUROLOGIC: No change in exam. MEDICATIONS: Reviewed. LABORATORY DATA: Reviewed. ASSESSMENT AND PLAN: 1. Nonoliguric acute kidney injury on top of chronic kidney disease stage IIIB/IV with previous base line creatinine of around 1.5 mg/dL. Etiology of acute kidney injury is secondary to hemodynamics, v olume depletion. Renal function has improved with volume expansion. Continue current treatment plan , supportive care and renally dose all medications. 2. Hypokalemia. Replete with potassium chloride. 3. Alkalosis. Etiology may be metabolic versus compensatory. Continue to monitor. 4. Hypernatremia secondary to acute kidney injury, improved. Continue to monitor. 5. Anemia. Monitor hemoglobin and hematocrit levels. 6. Mineral bone disorder, monitor calcium and phosphorus levels. 7. Sepsis secondary to pneumonia. Continue current antibiotic regimen. 8. History of diastolic heart failure. The patient appears to be euvolemic on exam, monitor closely on IV fluids. 9. Acute encephalopathy, etiology is toxic metabolic. Dictated By: NATI LUONG DO NR/NTS Conf#: [id number] DID#: [id number] CC: COREY CRUMP MD; ALEX OLIVAS MD;*EndCC*
[2019-01-21] MEDS: CYANOCOBALAMIN 500 MCG TAB PO SCH (09:09)
[2019-01-21] MEDS: FERROUS SULFATE (EC) 325 MG TAB PO SCH (09:09)
[2019-01-21] MEDS: NICOTINE (14 MG/24 HR) PATCH TRANSDERM SCH (09:09)
[2019-01-21] MEDS: FLUTICASONE 0.05% 16 GM NAS SPRAY NASAL SCH ×2 (09:09→21:52)
[2019-01-21] MEDS: DOCUSATE SODIUM 100 MG CAP PO PRN (09:10)
[2019-01-21] MEDS: SOD CHLORIDE 0.9% 1,000 ML IV SCH (09:10)
[2019-01-21] MEDS ORDERED: POTASSIUM PHOSPHATE 30 MM in SOD CHLORIDE 0.9% 250 ML IVPB ONE (10:00)
--- NOTE | 2019-01-21 10:58 | PN ---
Date/Time of Note Date/Time of Note DATE: 01/21/19 TIME: 10:57 Assessment/Plan VTE Prophylaxis Risk score (from Ns)>0 risk: 6 [place] [facility] [place] Pharmacological prophylaxis: NA/contraindicated Pharm contraindication: thrombocytopenia Lines/Catheters IV Catheter Type (from [facility]): Peripheral IV Urinary Cath still in place: Yes Reason Cath still needed: other (indicate) Assessment/Plan Hospital Course SUBJECTIVE: Patient remains confused. On bilateral soft wrist restraints. OBJECTIVE: Physical Exam General: Adequately build 83 year-old male lying in bed in no apparent distress. HEENT: Normocephalic, atraumatic. Eyes: Anicteric sclerae, conjunctivae clear. ENT: Nasal septum midline, oral mucosa moist. Neck supple. Respiratory: Bilaterally diminished breath sounds. No use of accessory muscles of respiration. No adventitious breath sounds. Cardiovascular: S1, S2 heard. Regular rate and rhythm. Abdomen: Soft, nontender, and nondistended. Bowel sounds positive in all 4 quadrants. Genitourinary: Deferred. Extremities: No cyanosis, no clubbing, no edema. Peripheral pulses palpable. Neurologic: The patient remains confused. Farsi speaking only. Labs & Vitals per chart ASSESSMENT & PLAN 83-year-old male with comorbidities including hypertension, CAD, CHF, COPD and permanent pacemaker placement, who [facility] because of her reported fatigue for 1 week, who was found to have underlying JUANA, leukocytosis, and minimally elevated troponins, who was admitted to inpatient setting for further treatment and evaluation. 1. Acute respiratory failure. Hypoxic. Etiology could be multifactorial. Continue inhaled bronchodilators. Continue supplemental oxygen 2. Acute kidney injury. Unknown baseline creatinine. Being followed by nephrology. Use nephrotoxic drugs with caution. 3. Leukocytosis. Etiology unclear. Remains afebrile. On empiric antimicrobials. WBC trending down. 4. Diastolic heart failure. Closely monitor volume status. Diuresis as clinically indicated. 5. Acute encephalopathy. Etiology unclear. Brain CT scan negative. Most probably toxic metabolic in origin. 6. NSTEMI. Most probably a type II event in the setting of underlying acute kidney injury. 6. Fluids, electrolytes, and nutrition. Pured diet. Aspiration precautions. 7. DVT prophylaxis. Bilateral SCDs. 8. Plan. Continue inhaled bronchodilators. Continue to monitor renal function closely. Await clinical improvement. The patient was seen in collaboration with Dr. Azevedo. Result Diagram: 01/21/19 0600 01/21/19 0600 Results 24hrs Laboratory Tests Test 01/21/19 06:00 White Blood Count 12.5 H Red Blood Count 3.39 L Hemoglobin 11.3 L Hematocrit 33.6 L Mean Corpuscular Volume 99.1 Mean Corpuscular Hemoglobin 33.3 H Mean Corpuscular Hemoglobin Concent 33.6 Red Cell Distribution Width 12.7 Platelet Count 97 L Mean Platelet Volume 12.4 H Immature Granulocytes % 0.600 H Neutrophils % 81.6 H Lymphocytes % 7.0 L Monocytes % 9.7 Eosinophils % 1.0 Basophils % 0.1 Nucleated Red Blood Cells % 0.0 Immature Granulocytes # 0.080 H Neutrophils # 10.2 H Lymphocytes # 0.9 Monocytes # 1.2 H Eosinophils # 0.1 Basophils # 0.0 Nucleated Red Blood Cells # 0.0 Sodium Level 140 Potassium Level 3.3 L Chloride Level 102 Carbon Dioxide Level 33 H Anion Gap 5 Blood Urea Nitrogen 47 #H Creatinine 1.31 H Est Glomerular Filtrat Rate mL/min Glucose Level 131 Calcium Level 7.9 L Phosphorus Level 2.3 L Magnesium Level 3.2 H Exam/Review of Systems Exam Vitals Vital Signs Date Temp Pulse Resp B/P (MAP) Pulse Ox O2 O2 Flow FiO2 Time Delivery Rate 01/21/19 85 18 96 Nasal 2.0 09:45 Cannula 01/21/19 98.0 130/62 07:34 (84) 01/19/19 28 13:40 Intake and Output 01/20/19 01/20/19 01/21/19 1515:00 23:00 07:00 IntakeIntake Total 120 ml 580 ml 930 ml OutputOutput Total 1650 ml 550 ml BalanceBalance 120 ml -1070 ml 380 ml Results Results 24hrs Laboratory Tests Test 01/21/19 06:00 White Blood Count 12.5 H Red Blood Count 3.39 L Hemoglobin 11.3 L Hematocrit 33.6 L Mean Corpuscular Volume 99.1 Mean Corpuscular Hemoglobin 33.3 H Mean Corpuscular Hemoglobin Concent 33.6 Red Cell Distribution Width 12.7 Platelet Count 97 L Mean Platelet Volume 12.4 H Immature Granulocytes % 0.600 H Neutrophils % 81.6 H Lymphocytes % 7.0 L Monocytes % 9.7 Eosinophils % 1.0 Basophils % 0.1 Nucleated Red Blood Cells % 0.0 Immature Granulocytes # 0.080 H Neutrophils # 10.2 H Lymphocytes # 0.9 Monocytes # 1.2 H Eosinophils # 0.1 Basophils # 0.0 Nucleated Red Blood Cells # 0.0 Sodium Level 140 Potassium Level 3.3 L Chloride Level 102 Carbon Dioxide Level 33 H Anion Gap 5 Blood Urea Nitrogen 47 #H Creatinine 1.31 H Est Glomerular Filtrat Rate mL/min Glucose Level 131 Calcium Level 7.9 L Phosphorus Level 2.3 L Magnesium Level 3.2 H Medications Medication Current Medications IV Flush (NS 3 ml) 3 ml PER PROTOCOL IV ; Start 01/17/19 at 22:00 Ondansetron HCl (Zofran Inj) 4 mg Q6H PRN IV NAUSEA/VOMITING; Start 01/17/19 at 22:00 Enoxaparin Sodium (Lovenox) 30 mg DAILY SC Last administered on 01/18/19at 13:51; Admin Dose 30 MG; Start 01/18/19 at 09:00; Status Hold Fluticasone Propionate (Flonase 0.05% Nasal) 1 spray BID NASAL Last administered on 01/21/19 09:09; Admin Dose 1 SPRAY; Start 01/18/19 at 09:00 Nicotine (Nicoderm 14 Mg/ 24hr) 1 patch DAILY TRANSDERM Last administered on 01/21/19 09:09; Admin Dose 1 PATCH; Start 01/18/19 at 09:00 Piperacillin Sod/ Tazobactam Sod 100 ml @ 200 mls/hr Q8 IVPB Last administered on 01/21/19at 05:32; Admin Dose 200 MLS/HR; Start 01/18/19 at 14:00 Levalbuterol (Xopenex Neb) 0.63 mg Q6H RESP THERAPY HHN Last administered on 01/21/19 09:45; Admin Dose 0.63 MG; Start 01/18/19 at 16:00 Levalbuterol (Xopenex Neb) 0.63 mg Q4H RESP THERAPY PRN HHN SHORTNESS OF BREATH; Start 01/18/19 at 15:30 Acetaminophen (Tylenol Tab) 650 mg Q6H PRN PO .PAIN 1-3 OR TEMP; Start 01/19/19 at 13:00 Cyanocobalamin (Vitamin B12) 1,000 mcg DAILY PO Last administered on 01/21/19at 09:09; Admin Dose 1,000 MCG; Start 01/20/19 at 09:00 Ferrous Sulfate (Ferrous Sulfate (Ec)) 325 mg DAILY PO Last administered on 01/21/19at 09:09; Admin Dose 325 MG; Start 01/20/19 at 09:00 Sodium Chloride 1,000 ml @ 40 mls/hr Q24H IV Last administered on 01/21/19at 09:10; Admin Dose 40 MLS/HR; Start 01/20/19 at 09:00 Potassium Phosphate 30 mm/ Sodium Chloride 260 ml @ 43.333 mls/ hr ONCE ONCE IVPB ; Start 01/21/19 at 10:00; Stop 01/21/19 at 15:59 Senna (Senokot) 1 tab BID PO ; Start 01/21/19 at 11:00; Status UNV Bisacodyl (Dulcolax) 10 mg DAILY PRN PO CONSTIPATION; Start 01/21/19 at 11:00; Status UNV AUGUSTO CHENEY NP Jan 21, 2019 10:58
[2019-01-21] MEDS: SENNA TAB PO SCH ×2 (11:00→12:37)
[2019-01-21] MEDS: BISACODYL (EC) 5 MG TAB PO PRN (12:36)
[2019-01-21] MEDS ORDERED: QUETIAPINE 25 MG TAB PO ONE (21:30)
[2019-01-22] VITALS (16 sets, daily range): BP systolic 100–133; BP diastolic 53–65; PULSE 40–84; RESP 18–20
[2019-01-22] MEDS: LEVALBUTEROL (NEB) 0.63 MG/3 ML AMP HHN SCH ×4 (01:40→19:31)
[2019-01-22] MEDS: PIPER-TAZO 3.375 GM IV (PMX) 100 ML IVPB SCH ×3 (05:14→21:37)
[2019-01-22] MEDS ORDERED: POTASSIUM CHLORIDE (SR) 20 MEQ TAB PO STA (08:15)
[2019-01-22] MEDS: CYANOCOBALAMIN 500 MCG TAB PO SCH (09:25)
[2019-01-22] MEDS: FERROUS SULFATE (EC) 325 MG TAB PO SCH (09:25)
[2019-01-22] MEDS: NICOTINE (14 MG/24 HR) PATCH TRANSDERM SCH (09:25)
[2019-01-22] MEDS: SENNA TAB PO SCH ×2 (09:25→20:24)
[2019-01-22] MEDS: FLUTICASONE 0.05% 16 GM NAS SPRAY NASAL SCH ×2 (09:25→20:23)
[2019-01-22] MEDS: BISACODYL (EC) 5 MG TAB PO PRN (09:25)
[2019-01-22] MEDS: ACETAMINOPHEN 325 MG TAB PO PRN ×2 (09:26→22:46)
--- NOTE | 2019-01-22 11:13 | PN ---
DATE: 01/22/2019 SUBJECTIVE: The patient is stable, no events overnight. No fevers, chills, nausea, vomiting. Patie nt remains confused. OBJECTIVE: VITAL SIGNS: Blood pressure is 122/65, respirations 18, pulse 74, temperature 98.3. HEENT: Head is normocephalic. NECK: Supple. HEART: Regular rate. LUNGS: Show diminished breath sounds at base. ABDOMEN: Soft, nontender to palpation without rebound or guarding. EXTREMITIES: Negative for clubbing, cyanosis, no edema. DERMATOLOGIC: No rashes. MUSCULOSKELETAL: No joint effusion. NEUROLOGIC: No change in exam. MEDICATIONS: Reviewed. LABORATORY DATA: From 01/22/2019 was reviewed. ASSESSMENT AND PLAN: 1. Nonoliguric acute kidney injury on top of chronic kidney disease stage IIIB/IV. Previous baselin e creatinine around 1.5 mg/dL. Etiology of acute kidney injury is secondary to hemodynamics, volume depletion. The patient's renal function has improved. Continue current treatment plan, supportive c are, renally dose all meds. 2. Hypokalemia. Continue to monitor and replete. 3. Alkalosis improving. Continue to monitor. 4. Hypernatremia. Resolved. Continue to monitor. 5. Anemia. Monitor hemoglobin and hematocrit levels. 6. Mineral bone disorder, monitor calcium and phosphorus levels. 7. Sepsis secondary to pneumonia. Continue current antibiotic regimen. 8. History of diastolic heart failure. The patient currently appears compensated. Continue to [facility] closely. 9. Acute encephalopathy, etiology is toxic metabolic. 10. Acute respiratory failure. Etiology is secondary to pneumonia. Continue current treatment plan . Continue nebulizer, supplemental oxygen. Dictated By: NATI LUONG DO NR/NTS Conf#: [id number] DID#: [id number] CC: COREY CRUMP MD;*EndCC*
--- NOTE | 2019-01-22 15:58 | PN ---
Date/Time of Note Date/Time of Note DATE: 01/22/19 TIME: 15:51 Assessment/Plan VTE Prophylaxis Risk score (from Ns)>0 risk: 6 SCD applied (from Ns): Yes SCD contraindicated: low risk/ambulating Pharmacological prophylaxis: LMWH Lines/Catheters IV Catheter Type (from Nrs): Peripheral IV Urinary Cath still in place: Yes Reason Cath still needed: urinary retention Assessment/Plan Hospital Course A/P 1. Dyspnea; 2nd to CAP/ Sepsis 2. Sepsis 3. Cap 4. Dementia? 5. COPD 6. CHF 7. PPM malfunction? 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 B12 def 10. 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 CAD? 14. Ac encephalopathy/ delirium/ mci? 15. Ftt/ offload heels; dc to snf 16. ARF; us ok; treat sepsis/ hypovolemia 17. Anemia; asymptomatic S: Admitted with shortness of breath from SNF. Patient is a poor historian. No noted nausea vomiting fever. appeared dehydrated/ from Hospice. Less agitated/ off restraints. O: vss/ paced PE no pallor/ jvd reg s1s2 no mrg ctab bs + nt nd no r r g no edema Result Diagram: 01/22/19 0546 01/22/1946 Results 24hrs Laboratory Tests Test 01/22/19 05:46 White Blood Count 13.4 H Red Blood Count 3.50 L Hemoglobin 11.8 L Hematocrit 36.1 L Mean Corpuscular Volume 103.1 H Mean Corpuscular Hemoglobin 33.7 H Mean Corpuscular Hemoglobin Concent 32.7 Red Cell Distribution Width 13.0 Platelet Count 114 L Mean Platelet Volume 12.4 H Immature Granulocytes % 0.600 H Neutrophils % 81.9 H Lymphocytes % 7.5 L Monocytes % 8.6 Eosinophils % 1.3 Basophils % 0.1 Nucleated Red Blood Cells % 0.0 Immature Granulocytes # 0.080 H Neutrophils # 11.0 H Lymphocytes # 1.0 Monocytes # 1.2 H Eosinophils # 0.2 Basophils # 0.0 Nucleated Red Blood Cells # 0.0 Sodium Level 143 Potassium Level 3.4 L Chloride Level 105 Carbon Dioxide Level 35 H Anion Gap 3 L Blood Urea Nitrogen 26 #H Creatinine 1.23 Est Glomerular Filtrat Rate mL/min Glucose Level 133 Calcium Level 7.9 L Phosphorus Level 2.8 Magnesium Level 2.9 H Exam/Review of Systems Exam Vitals Vital Signs Date Temp Pulse Resp B/P (MAP) Pulse Ox O2 O2 Flow FiO2 Time Delivery Rate 01/22/19 97.9 76 18 100/53 96 15:18 (69) 01/22/19 Nasal 1.0 14:00 Cannula 01/19/19 28 13:40 Intake and Output 01/21/19 01/21/19 01/22/19 1515:00 23:00 07:00 IntakeIntake Total 400 ml 630 ml 670 ml OutputOutput Total 450 ml BalanceBalance -50 ml 630 ml 670 ml Results Results 24hrs Laboratory Tests Test 01/22/19 05:46 White Blood Count 13.4 H Red Blood Count 3.50 L Hemoglobin 11.8 L Hematocrit 36.1 L Mean Corpuscular Volume 103.1 H Mean Corpuscular Hemoglobin 33.7 H Mean Corpuscular Hemoglobin Concent 32.7 Red Cell Distribution Width 13.0 Platelet Count 114 L Mean Platelet Volume 12.4 H Immature Granulocytes % 0.600 H Neutrophils % 81.9 H Lymphocytes % 7.5 L Monocytes % 8.6 Eosinophils % 1.3 Basophils % 0.1 Nucleated Red Blood Cells % 0.0 Immature Granulocytes # 0.080 H Neutrophils # 11.0 H Lymphocytes # 1.0 Monocytes # 1.2 H Eosinophils # 0.2 Basophils # 0.0 Nucleated Red Blood Cells # 0.0 Sodium Level 143 Potassium Level 3.4 L Chloride Level 105 Carbon Dioxide Level 35 H Anion Gap 3 L Blood Urea Nitrogen 26 #H Creatinine 1.23 Est Glomerular Filtrat Rate mL/min Glucose Level 133 Calcium Level 7.9 L Phosphorus Level 2.8 Magnesium Level 2.9 H Medications Medication Current Medications IV Flush (NS 3 ml) 3 ml PER PROTOCOL IV ; Start 01/17/19 at 22:00 Ondansetron HCl (Zofran Inj) 4 mg Q6H PRN IV NAUSEA/VOMITING; Start 01/17/19 at 22:00 Enoxaparin Sodium (Lovenox) 30 mg DAILY SC Last administered on 01/18/19at 13:51; Admin Dose 30 MG; Start 01/18/19 at 09:00; Status Hold Fluticasone Propionate (Flonase 0.05% Nasal) 1 spray BID NASAL Last admin istered on 01/22/19 09:25; Admin Dose 1 SPRAY; Start 01/18/19 at 09:00 Nicotine (Nicoderm 14 Mg/ 24hr) 1 patch DAILY TRANSDERM Last administered on 01/22/19:25; Admin Dose 1 PATCH; Start 01/18/19 at 09:00 Piperacillin Sod/ Tazobactam Sod 100 ml @ 200 mls/hr Q8 IVPB Last administered on 01/22/19 13:15; Admin Dose 200 MLS/HR; Start 01/18/19 at 14:00 Levalbuterol (Xopenex Neb) 0.63 mg Q6H RESP THERAPY HHN Last administered on 01/22/19 13:59; Admin Dose 0.63 MG; Start 01/18/19 at 16:00 Levalbuterol (Xopenex Neb) 0.63 mg Q4H RESP THERAPY PRN HHN SHORTNESS OF BREATH; Start 01/18/19 at 15:30 Acetaminophen (Tylenol Tab) 650 mg Q6H PRN PO .PAIN 1-3 OR TEMP Last administered on 01/22/19 09:26; Admin Dose 650 MG; Start 01/19/19 at 13:00 Cyanocobalamin (Vitamin B12) 1,000 mcg DAILY PO Last administered on 01/22/19:25; Admin Dose 1,000 MCG; Start 01/20/19 at 09:00 Ferrous Sulfate (Ferrous Sulfate (Ec)) 325 mg DAILY PO Last administered on 01/22/19:25; Admin Dose 325 MG; Start 01/20/19 at 09:00 Senna (Senokot) 1 tab BID PO Last administered on 01/22/19 09:25; Admin Dose 1 TAB; Start 01/21/19 at 11:00 Bisacodyl (Dulcolax) 10 mg DAILY PRN PO CONSTIPATION Last administered on 01/22/19:25; Admin Dose 10 MG; Start 01/21/19 at 11:00 NICHOLAS BHAKTA MD Jan 22, 2019 15:58
[2019-01-22] MEDS: FAMOTIDINE 20 MG TAB PO SCH (20:24)
[2019-01-23] VITALS (11 sets, daily range): BP systolic 97–154; BP diastolic 56–69; PULSE 69–78; RESP 17–20
[2019-01-23] MEDS: LEVALBUTEROL (NEB) 0.63 MG/3 ML AMP HHN SCH ×2 (01:24→07:33)
[2019-01-23] MEDS: PIPER-TAZO 3.375 GM IV (PMX) 100 ML IVPB SCH (05:50)
[2019-01-23] MEDS: CYANOCOBALAMIN 500 MCG TAB PO SCH (08:30)
[2019-01-23] MEDS: SENNA TAB PO SCH (08:30)
[2019-01-23] MEDS: FLUTICASONE 0.05% 16 GM NAS SPRAY NASAL SCH ×2 (08:31→21:27)
[2019-01-23] MEDS: FERROUS SULFATE (EC) 325 MG TAB PO SCH (08:31)
[2019-01-23] MEDS: NICOTINE (14 MG/24 HR) PATCH TRANSDERM SCH (08:32)
--- NOTE | 2019-01-23 09:14 | PN ---
DATE: 01/23/2019 SUBJECTIVE: The patient is stable, no events overnight. OBJECTIVE: VITAL SIGNS: Blood pressure is 124/58, pulse 75, respirations 18, temperature 98.0. HEENT: Head is normocephalic. NECK: Supple. HEART: Regular rate. LUNGS: Show diminished breath sounds at the base. ABDOMEN: Soft, nontender to palpation without rebound or guarding. EXTREMITIES: Negative for clubbing, cyanosis, no edema. DERMATOLOGIC: No rashes. MUSCULOSKELETAL: No joint effusion. NEUROLOGIC: No change in exam. MEDICATIONS: The patient's medications have been reviewed. LABORATORY DATA: From 01/23/2019 was reviewed. ASSESSMENT AND PLAN: 1. Nonoliguric acute kidney injury on top of chronic kidney disease stage IIIB/IV with previous base line creatinine around 1.5 mg/dL. Etiology of JUANA is secondary to hemodynamics. The patient's renal function has improved after a course of IV fluids. Currently, renal function appears to be near bas bryan. We will continue current treatment plan, supportive care and renally dose all meds. 2. Hypokalemia. Continue to monitor and replete as needed. 3. Alkalosis, improved. 4. Hyponatremia, resolved. 5. Anemia. Monitor hemoglobin and hematocrit levels. 6. Mineral bone disorder, monitor calcium and phosphorus levels. 7. Sepsis secondary to pneumonia. Continue current antibiotic regimen. 8. History of diastolic heart failure. The patient appears compensated. Continue to monitor. 9. Acute encephalopathy, etiology is toxic metabolic. 10. Acute respiratory failure secondary to pneumonia. The patient is clinically improving. Continu e current medical management. Dictated By: NATI LUONG DO NR/TAZ Conf#: [id number] DID#: [id number] CC: NICHOLAS BHAKTA MD; COREY CRUMP MD;*EndCC*
--- NOTE | 2019-01-23 09:46 | PN ---
Date/Time of Note Date/Time of Note DATE: 01/23/19 TIME: 09:43 Assessment/Plan VTE Prophylaxis Risk score (from Ns)>0 risk: 6 SCD applied (from Ns): Yes SCD contraindicated: low risk/ambulating Pharmacological prophylaxis: LMWH Lines/Catheters IV [facility] (from [facility] Saline Lock Urinary Cath still in place: Yes Reason Cath still needed: other (indicate) Assessment/Plan Hospital Course A/P 1. Dyspnea; 2nd to CAP/ Sepsis? Repeat chest x-ray soon. Change to Levaquin. 2. Sepsis? Urine x-ray appears stable. Check LFTs KUB 3. Cap [place] continue Levaquin 4. Dementia? 5. COPD consider outpatient PFTs 6. CHF? 7. PPM malfunction? 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 B12 def stable 10. 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 Treat renal failure 12. Subclinical Hyperthyroidism 13. CAD? Medical management. 14. Ac encephalopathy/ delirium/ mci? 15. Ftt/ offload heels; dc to snf 16. ARF; usg ok; treat sepsis/ hypovolemia 17. Anemia; asymptomatic 18. Suspected constipation 19. Leukocytosis, check KUB follow-up on cultures continue Levaquin S: 01/22 admitted with shortness of breath from SNF. Patient is a poor historian. No noted nausea vomiting fever. appeared dehydrated/ from Hospice. Less agitated/ off restraints. 01/23 no cough fever. Poor appetite. Constipated? Pacemaker interrogation pending O: vss/ paced PE no pallor/ jvd reg s1s2 no mrg ctab bs + nt nd no r r g no edema Result Diagram: 01/23/1926 01/23/19525 Results 24hrs Laboratory Tests Test 01/23/19 05:26 White Blood Count 14.5 H Red Blood Count 3.38 L Hemoglobin 11.4 L Hematocrit 35.0 L Mean Corpuscular Volume 103.6 H Mean Corpuscular Hemoglobin 33.7 H Mean Corpuscular Hemoglobin Concent 32.6 Red Cell Distribution Width 13.1 Platelet Count 129 L Mean Platelet Volume 12.4 H Immature Granulocytes % 0.600 H Neutrophils % 75.7 Lymphocytes % 13.6 L Monocytes % 7.9 Eosinophils % 1.9 Basophils % 0.3 Nucleated Red Blood Cells % 0.0 Immature Granulocytes # 0.090 H Neutrophils # 10.9 H Lymphocytes # 2.0 Monocytes # 1.1 H Eosinophils # 0.3 Basophils # 0.0 Nucleated Red Blood Cells # 0.0 Sodium Level 142 Potassium Level 3.7 Chloride Level 105 Carbon Dioxide Level 32 H Anion Gap 5 Blood Urea Nitrogen 25 H Creatinine 1.28 H Est Glomerular Filtrat Rate mL/min Glucose Level 103 Calcium Level 8.1 L Phosphorus Level 2.8 Magnesium Level 2.9 H Free Thyroxine 2.12 H Total Triiodothyronine 0.65 L Exam/Review of Systems Exam Vitals Vital Signs Date Temp Pulse Resp B/P (MAP) Pulse Ox O2 O2 Flow FiO2 Time Delivery Rate 01/23/19 75 08:00 01/23/19 Nasal 2.0 08:00 Cannula 01/23/19 95 24 07:33 01/23/19 18 07:33 01/23/19 98.0 124/58 07:18 (80) Intake and Output 01/22/19 01/22/19 01/23/19 1515:00 23:00 07:00 IntakeIntake Total 420 ml 50 ml BalanceBalance 420 ml 50 ml Results Results 24hrs Laboratory Tests Test 01/23/19 05:26 White Blood Count 14.5 H Red Blood Count 3.38 L Hemoglobin 11.4 L Hematocrit 35.0 L Mean Corpuscular Volume 103.6 H Mean Corpuscular Hemoglobin 33.7 H Mean Corpuscular Hemoglobin Concent 32.6 Red Cell Distribution Width 13.1 Platelet Count 129 L Mean Platelet Volume 12.4 H Immature Granulocytes % 0.600 H Neutrophils % 75.7 Lymphocytes % 13.6 L Monocytes % 7.9 Eosinophils % 1.9 Basophils % 0.3 Nucleated Red Blood Cells % 0.0 Immature Granulocytes # 0.090 H Neutrophils # 10.9 H Lymphocytes # 2.0 Monocytes # 1.1 H Eosinophils # 0.3 Basophils # 0.0 Nucleated Red Blood Cells # 0.0 Sodium Level 142 Potassium Level 3.7 Chloride Level 105 Carbon Dioxide Level 32 H Anion Gap 5 Blood Urea Nitrogen 25 H Creatinine 1.28 H Est Glomerular Filtrat Rate mL/min Glucose Level 103 Calcium Level 8.1 L Phosphorus Level 2.8 Magnesium Level 2.9 H Free Thyroxine 2.12 H Total Triiodothyronine 0.65 L Medications Medication Current Medications IV Flush (NS 3 ml) 3 ml PER PROTOCOL IV ; Start 01/17/19 at 22:00 Ondansetron HCl (Zofran Inj) 4 mg Q6H PRN IV NAUSEA/VOMITING; Start 01/17/19 at 22:00 Enoxaparin Sodium (Lovenox) 30 mg DAILY SC Last administered on 01/18/19 13:51; Admin Dose 30 MG; Start 01/18/19 at 09:00; Status Hold Fluticasone Propionate (Flonase 0.05% Nasal) 1 spray BID NASAL Last administered on 01/23/19 08:31; Admin Dose 1 SPRAY; Start 01/18/19 at 09:00 Nicotine (Nicoderm 14 Mg/ 24hr) 1 patch DAILY TRANSDERM Last administered on 01/23/19 08:32; Admin Dose 1 PATCH; Start 01/18/19 at 09:00 Piperacillin Sod/ Tazobactam Sod 100 ml @ 200 mls/hr Q8 IVPB Last administered on 01/23/19 05:50; Admin Dose 200 MLS/HR; Start 01/18/19 at 14:00 Levalbuterol (Xopenex Neb) 0.63 mg Q6H RESP THERAPY HHN Last administered on 01/23/19 07:33; Admin Dose 0.63 MG; Start 01/18/19 at 16:00 Levalbuterol (Xopenex Neb) 0.63 mg Q4H RESP THERAPY PRN HHN SHORTNESS OF BREATH; Start 01/18/19 at 15:30 Acetaminophen (Tylenol Tab) 650 mg Q6H PRN PO .PAIN 1-3 OR TEMP Last administered on 01/22/19 22:46; Admin Dose 650 MG; Start 01/19/19 at 13:00 Cyanocobalamin (Vitamin B12) 1,000 mcg DAILY PO Last administered on 01/23/19 08:30; Admin Dose 1,000 MCG; Start 01/20/19 at 09:00 Ferrous Sulfate (Ferrous Sulfate (Ec)) 325 mg DAILY PO Last administered on 01/23/19 08:31; Admin Dose 325 MG; Start 01/20/19 at 09:00 Senna (Senokot) 1 tab BID PO Last administered on 01/23/19 08:30; Admin Dose 1 TAB; Start 01/21/19 at 11:00 Bisacodyl (Dulcolax) 10 mg DAILY PRN PO CONSTIPATION Last administered on 01/22/19 09:25; Admin Dose 10 MG; Start 01/21/19 at 11:00 Famotidine (Pepcid) 20 mg HS PO Last administered on 01/22/19 20:24; Admin Dose 20 MG; Start 01/22/19 at 21:00 NICHOLAS BHAKTA MD Jan 23, 2019 09:46
[2019-01-23] MEDS ORDERED: BISACODYL 10 MG SUPP PR PRN (10:00)
[2019-01-23] MEDS: LACTULOSE 30ML CUP PO SCH ×2 (10:00→21:34)
[2019-01-23] MEDS: LEVALBUTEROL (NEB) 0.63 MG/3 ML AMP HHN PRN (13:12)
[2019-01-23] MEDS: FAMOTIDINE 20 MG TAB PO SCH (21:34)
[2019-01-23] MEDS: ACETAMINOPHEN 325 MG TAB PO PRN (21:55)
[2019-01-24] VITALS (11 sets, daily range): BP systolic 92–98; BP diastolic 50–57; PULSE 67–76; RESP 16–20
[2019-01-24] MEDS: LEVOFLOXACIN 750 MG TABLET PO SCH (05:12)
[2019-01-24] MEDS: FLUTICASONE 0.05% 16 GM NAS SPRAY NASAL SCH ×2 (08:26→20:48)
[2019-01-24] MEDS: ASPIRIN (EC) 81 MG TAB PO SCH (08:26)
[2019-01-24] MEDS: CYANOCOBALAMIN 500 MCG TAB PO SCH (08:26)
[2019-01-24] MEDS: SENNA/DOCUSATE NA (8.6MG/50MG) TAB PO SCH (08:26)
[2019-01-24] MEDS: NICOTINE (14 MG/24 HR) PATCH TRANSDERM SCH (08:28)
[2019-01-24] MEDS: LACTULOSE 30ML CUP PO SCH (08:30)
[2019-01-24] MEDS: ACETAMINOPHEN 325 MG TAB PO PRN ×2 (13:40→20:49)
--- NOTE | 2019-01-24 19:09 | PN ---
Date/Time of Note Date/Time of Note DATE: 01/24/19 TIME: 19:04 Assessment/Plan VTE Prophylaxis Risk score (from Ns)>0 risk: 6 SCD applied (from Ns): Yes SCD contraindicated: low risk/ambulating Pharmacological prophylaxis: LMWH Lines/Catheters IV Catheter Type (from [facility]): Saline Lock Urinary Cath still in place: Yes Reason Cath still needed: urinary retention Assessment/Plan Hospital Course A/P 1. Dyspnea; 2nd to CAP/ Sepsis? sp repeat cxr. Changed to Levaquin. 2. Sepsis? Urine/ cxr appears stable. Check LFTs/ KUB 3. Cap, continue Levaquin 4. Dementia? 5. COPD consider outpatient PFTs 6. CHF? 7. PPM malfunction? 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 B12 def stable 10. 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 echo without any wall motions. Treat renal failure 12. Subclinical Hyperthyroidism 13. CAD? Medical management. 14. Ac encephalopathy/ delirium/ mci? 15. Ftt/ offload heels; DC to snf once bed available 16. ARF; usg ok; treat sepsis/ hypovolemia 17. Anemia; asymptomatic 18. Constipation, improved 19. Leukocytosis, checked KUB; follow-up on cultures continue Levaquin. If all else worsens consider ischemic colitis 20. History of presyncope? Loop recorder present. S: 01/22 admitted with shortness of breath from SNF. Patient is a poor historian. No noted nausea vomiting fever. appeared dehydrated/ from Hospice. Less agitated/ off restraints. 01/23 no cough fever. Poor appetite. Constipated? Pacemaker interrogation pending 01/24 no distress. Restraints for almost 48 hours. Has pacemaker and loop recorder. Pacemaker to be interrogated tomorrow. Needs placement O: vss/ paced PE no pallor/ jvd reg s1s2 +sm; no r/g ctab bs + nt nd no r r g no edema Result Diagram: 01/24/1919 01/24/19 0519 Results 24hrs Laboratory Tests Test 01/24/19 05:19 White Blood Count 11.7 H Red Blood Count 3.04 L Hemoglobin 10.1 L Hematocrit 31.1 L Mean Corpuscular Volume 102.3 H Mean Corpuscular Hemoglobin 33.2 H Mean Corpuscular Hemoglobin Concent 32.5 Red Cell Distribution Width 13.2 Platelet Count 138 L Mean Platelet Volume 12.3 H Immature Granulocytes % 0.500 H Neutrophils % 72.7 Lymphocytes % 14.8 L Monocytes % 9.2 Eosinophils % 2.6 Basophils % 0.2 Nucleated Red Blood Cells % 0.0 Immature Granulocytes # 0.060 H Neutrophils # 8.5 H Lymphocytes # 1.7 Monocytes # 1.1 H Eosinophils # 0.3 Basophils # 0.0 Nucleated Red Blood Cells # 0.0 Sodium Level 136 Potassium Level 3.9 Chloride Level 101 Carbon Dioxide Level 31 Anion Gap 4 L Blood Urea Nitrogen 27 H Creatinine 1.33 H Est Glomerular Filtrat Rate mL/min Glucose Level 86 Lactic Acid Level 1.3 Calcium Level 8.1 L Total Bilirubin 0.9 Direct Bilirubin 0.00 Indirect Bilirubin 0.9 Aspartate Amino Transf (AST/SGOT) 31 Alanine Aminotransferase (ALT/SGPT) 34 Alkaline Phosphatase 41 L Total Protein 5.6 L Albumin 2.6 L Globulin 3.00 Albumin/Globulin Ratio 0.86 Exam/Review of Systems Exam Vitals Vital Signs Date Temp Pulse Resp B/P (MAP) Pulse Ox O2 O2 Flow FiO2 Time Delivery Rate 01/24/19 76 16:00 01/24/19 98.0 18 98/57 (71) 95 15:23 01/24/19 2.0 08:32 01/24/19 Nasal 08:00 Cannula 01/23/19 24 13:12 Intake and Output 01/23/19 01/23/19 01/24/19 1515:00 23:00 07:00 IntakeIntake Total 500 ml 250 ml BalanceBalance 500 ml 250 ml Results Results 24hrs Laboratory Tests Test 01/24/19 05:19 White Blood Count 11.7 H Red Blood Count 3.04 L Hemoglobin 10.1 L Hematocrit 31.1 L Mean Corpuscular Volume 102.3 H Mean Corpuscular Hemoglobin 33.2 H Mean Corpuscular Hemoglobin Concent 32.5 Red Cell Distribution Width 13.2 Platelet Count 138 L Mean Platelet Volume 12.3 H Immature Granulocytes % 0.500 H Neutrophils % 72.7 Lymphocytes % 14.8 L Monocytes % 9.2 Eosinophils % 2.6 Basophils % 0.2 Nucleated Red Blood Cells % 0.0 Immature Granulocytes # 0.060 H Neutrophils # 8.5 H Lymphocytes # 1.7 Monocytes # 1.1 H Eosinophils # 0.3 Basophils # 0.0 Nucleated Red Blood Cells # 0.0 Sodium Level 136 Potassium Level 3.9 Chloride Level 101 Carbon Dioxide Level 31 Anion Gap 4 L Blood Urea Nitrogen 27 H Creatinine 1.33 H Est Glomerular Filtrat Rate mL/min Glucose Level 86 Lactic Acid Level 1.3 Calcium Level 8.1 L Total Bilirubin 0.9 Direct Bilirubin 0.00 Indirect Bilirubin 0.9 Aspartate Amino Transf (AST/SGOT) 31 Alanine Aminotransferase (ALT/SGPT) 34 Alkaline Phosphatase 41 L Total Protein 5.6 L Albumin 2.6 L Globulin 3.00 Albumin/Globulin Ratio 0.86 Medications Medication Current Medications IV Flush (NS 3 ml) 3 ml PER PROTOCOL IV ; Start 01/17/19 at 22:00 Ondansetron HCl (Zofran Inj) 4 mg Q6H PRN IV NAUSEA/VOMITING; Start 01/17/19 at 22:00 Enoxaparin Sodium (Lovenox) 30 mg DAILY SC Last administered on 01/18/19 13:51; Admin Dose 30 MG; Start 01/18/19 at 09:00; Status Hold Fluticasone Propionate (Flonase 0.05% Nasal) 1 spray BID NASAL Last administered on 01/24/19 08:26; Admin Dose 1 SPRAY; Start 01/18/19 at 09:00 Nicotine (Nicoderm 14 Mg/ 24hr) 1 patch DAILY TRANSDERM Last administered on 01/24/19 08:28; Admin Dose 1 PATCH; Start 01/18/19 at 09:00 Levalbuterol (Xopenex Neb) 0.63 mg Q4H RESP THERAPY PRN HHN SHORTNESS OF BREATH Last administered on 01/23/19 13:12; Admin Dose 0.63 MG; Start 01/18/19 at 15:30 Acetaminophen (Tylenol Tab) 650 mg Q6H PRN PO .PAIN 1-3 OR TEMP Last administered on 01/24/19 13:40; Admin Dose 650 MG; Start 01/19/19 at 13:00 Cyanocobalamin (Vitamin B12) 1,000 mcg DAILY PO Last administered on 01/24/19 08:26; Admin Dose 1,000 MCG; Start 01/20/19 at 09:00 Bisacodyl (Dulcolax) 10 mg DAILY PRN PO CONSTIPATION Last administered on 01/22/19 09:25; Admin Dose 10 MG; Start 01/21/19 at 11:00 Famotidine (Pepcid) 20 mg HS PO Last administered on 01/23/19at 21:34; Admin Dose 20 MG; Start 01/22/19 at 21:00 Ferrous Sulfate (Ferrous Sulfate (Ec)) 325 mg DAILY PO ; Start 01/26/19 at 09:00 Senna/Docusate Sodium (Senokot-S) 2 tab DAILY PO Last administered on 01/24/19 08:26; Admin Dose 2 TAB; Start 01/24/19 at 09:00 Lactulose (Enulose) 20 gm BID PO Last administered on 01/23/19at 21:34; Admin Dose 20 GM; Start 01/23/19 at 10:00 Bisacodyl (Dulcolax Supp) 10 mg Q48H PRN [place] CONSTIPATION; Start 01/23/19 at 10:00 Levofloxacin (Levaquin) 750 mg DAILY@06 PO Last administered on 01/24/19at 05:12; Admin Dose 750 MG; Start 01/24/19 at 06:00; Stop 01/25/19 at 23:00 Guaifenesin/ Dextromethorphan (Robitussin Dm Liquid Cup) 10 ml Q4H PRN PO COUGH ; Start 01/23/19 at 10:00 Aspirin (Halfprin) 81 mg DAILY PO Last administered on 01/24/19 08:26; Admin Dose 81 MG; Start 01/24/19 at 09:00 NICHOLAS BHAKTA MD Jan 24, 2019 19:09
[2019-01-24] MEDS: FAMOTIDINE 20 MG TAB PO SCH (20:48)
[2019-01-24] MEDS: GUAIFENESIN/DM 5ML CUP PO PRN (20:49)
[2019-01-25] VITALS (9 sets, daily range): BP systolic 108–116; BP diastolic 55–76; PULSE 74–77; RESP 16–20
[2019-01-25] MEDS: LEVOFLOXACIN 750 MG TABLET PO SCH (06:18)
--- NOTE | 2019-01-25 07:36 | PN ---
DATE: 01/24/2019 SUBJECTIVE: The patient is stable, no events overnight. OBJECTIVE: VITAL SIGNS: Blood pressure is 94/50, pulse 67, respirations 18, temperature 98.0. HEENT: Head is normocephalic. NECK: Supple. HEART: Regular rate. LUNGS: Show diminished breath sounds at the base. ABDOMEN: Soft, nontender to palpation without rebound or guarding. EXTREMITIES: Negative for clubbing, cyanosis, no edema. DERMATOLOGIC: No rashes. MUSCULOSKELETAL: No joint effusion. NEUROLOGIC: No change in exam. MEDICATIONS: The patient's medications have been reviewed. LABORATORY DATA: Has been reviewed. ASSESSMENT AND PLAN: 1. Nonoliguric acute kidney injury on top of chronic kidney disease stage 3b/4. Previous baseline c reatinine around 1.5 mg/dL. Etiology of JUANA is secondary to hemodynamics. The patient's renal funct ion improved after IV fluids. Currently, renal function is stabilizing around baseline. At this poi nt, continue current treatment plan, supportive care, renally dose all medications. 2. Hypokalemia. Continue to monitor and replete as needed. 3. Anemia. Monitor hemoglobin and hematocrit levels. 4. Mineral bone disorder, monitor calcium and phosphorus levels. 5. Sepsis secondary to pneumonia. The patient is completing antibiotic course. 6. History of diastolic heart failure. The patient is currently compensated. Continue to monitor. 7. Acute encephalopathy. Etiology is toxic metabolic. 8. Acute respiratory failure secondary to pneumonia. Patient is clinically improving. Continue med ical management. Dictated By: NATI LUONG DO NR/NTS Conf#: [id number] DID#: [id number] CC: NICHOLAS BHAKTA MD; COREY CRUMP MD;*EndCC*
--- NOTE | 2019-01-25 09:07 | PN ---
DATE: 01/25/2019 SUBJECTIVE: The patient is stable, no events overnight. OBJECTIVE: VITAL SIGNS: Blood pressure is 110/58, pulse 74, respirations 18, temperature 98.3. HEENT: Head is normocephalic. NECK: Supple. HEART: Regular rate. LUNGS: Show diminished breath sounds at the base. ABDOMEN: Soft, nontender to palpation. No rebound or guarding. EXTREMITIES: Negative for clubbing, cyanosis, no edema. DERMATOLOGIC: No rashes. MUSCULOSKELETAL: No joint effusion. NEUROLOGIC: No change in exam. MEDICATIONS: Reviewed. LABORATORY DATA: Reviewed. ASSESSMENT AND PLAN: 1. Nonoliguric acute kidney injury on top of chronic kidney disease stage IIIB/IV with previous base line creatinine around 1.5 mg/dL. Etiology of acute kidney injury is secondary to hemodynamics. The patient's renal function has improved, appears to be approaching previous baseline. At this point, continue current treatment plan, supportive care, renally dose all medications. 2. Hypokalemia. Continue to monitor and replete as needed. 3. Anemia. Monitor hemoglobin and hematocrit levels. 4. Mineral bone disorder, monitor calcium and phosphorus levels. 5. Sepsis secondary to pneumonia. The patient is completing antibiotic course. 6. History of diastolic heart failure. The patient appears compensated. Continue medical managemen t. 7. Acute encephalopathy, etiology is toxic metabolic, improving. 8. Acute respiratory failure secondary to pneumonia. The patient is improving. Continue to monitor . Dictated By: NATI LUONG DO NR/NTS Conf#: [id number] DID#: [id number] CC: COREY CRUMP MD; NICHOLAS BHAKTA MD;*EndCC*
[2019-01-25] MEDS: ASPIRIN (EC) 81 MG TAB PO SCH (09:34)
[2019-01-25] MEDS: CYANOCOBALAMIN 500 MCG TAB PO SCH (09:34)
[2019-01-25] MEDS: FLUTICASONE 0.05% 16 GM NAS SPRAY NASAL SCH ×2 (09:34→21:37)
[2019-01-25] MEDS: NICOTINE (14 MG/24 HR) PATCH TRANSDERM SCH (09:34)
[2019-01-25] MEDS: SENNA/DOCUSATE NA (8.6MG/50MG) TAB PO SCH (09:34)
--- NOTE | 2019-01-25 14:07 | PN ---
Date/Time of Note Date/Time of Note DATE: 01/25/19 TIME: 14:06 Assessment/Plan VTE Prophylaxis Risk score (from Ns)>0 risk: 5 SCD applied (from Ns): Yes Pharmacological prophylaxis: heparin Lines/Catheters IV Catheter Type (from Nrs): Saline Lock Urinary Cath still in place: No Assessment/Plan Hospital Course Alert interactive Flat neck veins Clear lungs RRR SOft nt nd No edema A/P 83 yo male wtih diastolic CHF, COPD, possible cognitive impairment who presens with acute encephelopathy and JUANA - Dc abx, completed his course JUANA: - Improved with fluids - Hold lasix Diastolic CHF: - Closely monitor volume status Acute encephelopathy: - Suspect element of toxic/metabolic given electrolyte derangements - Continue to monitor - Seems resolved Hypokalemia: - Replete as needed DNR PT/OT Dc to SNF Result Diagram: 01/25/19 0554 01/25/19 0554 Results 24hrs Laboratory Tests Test 01/25/19 05:54 White Blood Count 14.0 H Red Blood Count 3.10 L Hemoglobin 10.5 L Hematocrit 31.8 L Mean Corpuscular Volume 102.6 H Mean Corpuscular Hemoglobin 33.9 H Mean Corpuscular Hemoglobin Concent 33.0 Red Cell Distribution Width 13.2 Platelet Count 150 Mean Platelet Volume 12.2 H Immature Granulocytes % 0.600 H Neutrophils % 81.0 H Lymphocytes % 11.7 L Monocytes % 5.0 Eosinophils % 1.5 Basophils % 0.2 Nucleated Red Blood Cells % 0.0 Immature Granulocytes # 0.090 H Neutrophils # 11.3 H Lymphocytes # 1.6 Monocytes # 0.7 Eosinophils # 0.2 Basophils # 0.0 Nucleated Red Blood Cells # 0.0 Sodium Level 135 Potassium Level 4.3 Chloride Level 100 Carbon Dioxide Level 32 H Anion Gap 3 L Blood Urea Nitrogen 30 H Creatinine 1.39 H Est Glomerular Filtrat Rate mL/min Glucose Level 98 Calcium Level 8.5 Phosphorus Level 3.2 Magnesium Level 2.3 Subjective 24 Hr Interval Summary Free Text/Dictation Mentation improved Seems back to baseline per his daughter Exam/Review of Systems Exam Vitals Vital Signs Date Temp Pulse Resp B/P (MAP) Pulse Ox O2 O2 Flow FiO2 Time Delivery Rate 01/25/19 75 12:00 01/25/19 98.3 16 109/55 98 11:54 (73) 6/10/19 Nasal 2.0 08:30 Cannula 01/23/19 24 13:12 Intake and Output 01/24/19 01/24/19 01/25/19 1515:00 23:00 07:00 IntakeIntake Total 650 ml 600 ml OutputOutput Total 250 ml BalanceBalance 400 ml 600 ml Results Results 24hrs Laboratory Tests Test 01/25/19 05:54 White Blood Count 14.0 H Red Blood Count 3.10 L Hemoglobin 10.5 L Hematocrit 31.8 L Mean Corpuscular Volume 102.6 H Mean Corpuscular Hemoglobin 33.9 H Mean Corpuscular Hemoglobin Concent 33.0 Red Cell Distribution Width 13.2 Platelet Count 150 Mean Platelet Volume 12.2 H Immature Granulocytes % 0.600 H Neutrophils % 81.0 H Lymphocytes % 11.7 L Monocytes % 5.0 Eosinophils % 1.5 Basophils % 0.2 Nucleated Red Blood Cells % 0.0 Immature Granulocytes # 0.090 H Neutrophils # 11.3 H Lymphocytes # 1.6 Monocytes # 0.7 Eosinophils # 0.2 Basophils # 0.0 Nucleated Red Blood Cells # 0.0 Sodium Level 135 Potassium Level 4.3 Chloride Level 100 Carbon Dioxide Level 32 H Anion Gap 3 L Blood Urea Nitrogen 30 H Creatinine 1.39 H Est Glomerular Filtrat Rate mL/min Glucose Level 98 Calcium Level 8.5 Phosphorus Level 3.2 Magnesium Level 2.3 Medications Medication Current Medications IV Flush (NS 3 ml) 3 ml PER PROTOCOL IV ; Start 01/17/19 at 22:00 Ondansetron HCl (Zofran Inj) 4 mg Q6H PRN IV NAUSEA/VOMITING; Start 01/17/19 at 22:00 Enoxaparin Sodium (Lovenox) 30 mg DAILY SC Last administered on 01/18/19at 13:51; Admin Dose 30 MG; Start 01/18/19 at 09:00; Status Hold Fluticasone Propionate (Flonase 0.05% Nasal) 1 spray BID NASAL Last administered on 01/25/19at 09:34; Admin Dose 1 SPRAY; Start 01/18/19 at 09:00 Nicotine (Nicoderm 14 Mg/ 24hr) 1 patch DAILY TRANSDERM Last administered on 01/25/19at 09:34; Admin Dose 1 PATCH; Start 01/18/19 at 09:00 Levalbuterol (Xopenex Neb) 0.63 mg Q4H RESP THERAPY PRN HHN SHORTNESS OF BREATH Last administered on 01/23/19 13:12; Admin Dose 0.63 MG; Start 01/18/19 at 15:30 Acetaminophen (Tylenol Tab) 650 mg Q6H PRN PO .PAIN 1-3 OR TEMP Last administered on 01/24/19 20:49; Admin Dose 650 MG; Start 01/19/19 at 13:00 Cyanocobalamin (Vitamin B12) 1,000 mcg DAILY PO Last administered on 01/25/19 09:34; Admin Dose 1,000 MCG; Start 01/20/19 at 09:00 Bisacodyl (Dulcolax) 10 mg DAILY PRN PO CONSTIPATION Last administered on 01/22/19 09:25; Admin Dose 10 MG; Start 01/21/19 at 11:00 Famotidine (Pepcid) 20 mg HS PO Last administered on 01/24/19 20:48; Admin Dose 20 MG; Start 01/22/19 at 21:00 Ferrous Sulfate (Ferrous Sulfate (Ec)) 325 mg DAILY PO ; Start 01/26/19 at 09:00 Senna/Docusate Sodium (Senokot-S) 2 tab DAILY PO Last administered on 01/25/19 09:34; Admin Dose 2 TAB; Start 01/24/19 at 09:00 Bisacodyl (Dulcolax Supp) 10 mg Q48H PRN [place] CONSTIPATION; Start 01/23/19 at 10:00 Levofloxacin (Levaquin) 750 mg DAILY@06 PO Last administered on 01/25/19 06:18; Admin Dose 750 MG; Start 01/24/19 at 06:00; Stop 01/25/19 at 23:00 Guaifenesin/ Dextromethorphan (Robitussin Dm Liquid Cup) 10 ml Q4H PRN PO COUGH Last administered on 01/24/19 20:49; Admin Dose 10 ML; Start 01/23/19 at 10:00 Aspirin (Halfprin) 81 mg DAILY PO Last administered on 01/25/19 09:34; Admin Dose 81 MG; Start 01/24/19 at 09:00 LAEX OLIVAS MD Jan 25, 2019 14:07
[2019-01-25] MEDS: ACETAMINOPHEN 325 MG TAB PO PRN (18:33)
[2019-01-25] MEDS ORDERED: HALOPERIDOL 5 MG INJ IM ONE (21:30)
[2019-01-25] MEDS ORDERED: FUROSEMIDE 20 MG INJ IV ONE (21:30)
[2019-01-25] MEDS: FAMOTIDINE 20 MG TAB PO SCH (21:37)
[2019-01-25] MEDS: GUAIFENESIN/DM 5ML CUP PO PRN (21:37)
[2019-01-25] MEDS: LEVALBUTEROL (NEB) 0.63 MG/3 ML AMP HHN PRN (21:59)
[2019-01-26] VITALS (9 sets, daily range): BP systolic 109–147; BP diastolic 59–64; PULSE 66–86; RESP 16–24
[2019-01-26] MEDS: ACETAMINOPHEN 325 MG TAB PO PRN ×3 (01:28→19:17)
[2019-01-26] MEDS ORDERED: traMADol 50 MG TAB PO ONE (04:00)
--- NOTE | 2019-01-26 08:40 | PN ---
DATE: 01/26/2019 SUBJECTIVE: The patient is stable, no events overnight. OBJECTIVE: VITAL SIGNS: Blood pressure is 139/62, pulse 74, respirations 20, temperature 98.4. HEENT: Head is normocephalic. NECK: Supple. HEART: Regular rate. LUNGS: Show diminished breath sounds at the base. ABDOMEN: Soft, nontender to palpation without rebound or guarding. EXTREMITIES: Negative for clubbing, cyanosis, no edema. DERMATOLOGIC: No rashes. MUSCULOSKELETAL: No joint effusion. NEUROLOGIC: No change in exam. MEDICATIONS: Reviewed. LABORATORY DATA: Reviewed. ASSESSMENT AND PLAN: 1. Nonoliguric acute kidney injury on top of chronic kidney disease stage IIIB/IV with previous base line creatinine around 1.5 mg/dL. Etiology of acute kidney injury is secondary to hemodynamics. Luis M al function is improved, near baseline. Continue current treatment plans, supportive care, renally d ose all medications. 2. Acute diastolic heart failure. The patient was given Lasix overnight. I will continue to monito r, give intermittent diuretic therapy as needed. 3. Anemia. Continue to monitor hemoglobin and hematocrit levels. 4. Mineral bone disorder, monitor calcium and phosphorus levels. 5. Sepsis secondary to pneumonia. The patient is completing antibiotic course. 6. Acute encephalopathy, etiology is toxic metabolic, improving. 7. Acute respiratory failure secondary to pneumonia. Continue current treatment plan. Dictated By: NATI LUONG DO NR/NTS Conf#: [id number] DID#: [id number] CC: COREY CRUMP MD; NICHOLAS BHAKTA MD;*End*
[2019-01-26] MEDS: SENNA/DOCUSATE NA (8.6MG/50MG) TAB PO SCH (09:53)
[2019-01-26] MEDS: FLUTICASONE 0.05% 16 GM NAS SPRAY NASAL SCH ×2 (09:53→21:00)
[2019-01-26] MEDS: FERROUS SULFATE (EC) 325 MG TAB PO SCH (09:53)
[2019-01-26] MEDS: CYANOCOBALAMIN 500 MCG TAB PO SCH (09:53)
[2019-01-26] MEDS: ASPIRIN (EC) 81 MG TAB PO SCH (09:53)
[2019-01-26] MEDS: NICOTINE (14 MG/24 HR) PATCH TRANSDERM SCH (09:54)
--- NOTE | 2019-01-26 12:16 | PN ---
Date/Time of Note Date/Time of Note DATE: 01/26/19 TIME: 12:15 Assessment/Plan VTE Prophylaxis Risk score (from Nsg)>0 risk: 5 SCD applied (from Nsg): Yes Pharmacological prophylaxis: heparin Lines/Catheters IV Catheter Type (from Nrsg): Saline Lock Urinary Cath still in place: No Assessment/Plan Hospital Course Alert interactive Flat neck veins Clear lungs RRR Soft nt nd No edema A/P 83 yo male wtih diastolic CHF, COPD, possible cognitive impairment who presents with acute encephalopathy and JUANA - Dc abx, completed his course JUANA: - Improved with fluids - Hold lasix Diastolic CHF: - Closely monitor volume status, lasix PRN Acute encephelopathy: - Suspect element of toxic/metabolic given electrolyte derangements - Continue to monitor - Seems resolved Hypokalemia: - Replete as needed DNR PT/OT Dc to SNF Result Diagram: 01/25/19 0554 01/25/1955 Subjective 24 Hr Interval Summary Free Text/Dictation Doing well Received lasix overnight for pulmonary congestion, now breathing comfortably Exam/Review of Systems Exam Vitals Vital Signs Date Temp Pulse Resp B/P (MAP) Pulse Ox O2 O2 Flow FiO2 Time Delivery Rate 01/26/19 86 12:14 01/26/19 97.5 24 119/63 100 Nasal 12:03 (81) Cannula 01/26/19 2.0 09:00 01/23/19 24 13:12 Intake and Output 01/25/19 01/25/19 01/26/19 1515:00 23:00 07:00 IntakeIntake Total 450 ml 350 ml OutputOutput Total 600 ml 1200 ml BalanceBalance -150 ml -850 ml Medications Medication Current Medications IV Flush (NS 3 ml) 3 ml PER PROTOCOL IV ; Start 01/17/19 at 22:00 Ondansetron HCl (Zofran Inj) 4 mg Q6H PRN IV NAUSEA/VOMITING; Start 01/17/19 at 22:00 Enoxaparin Sodium (Lovenox) 30 mg DAILY SC Last administered on 01/18/19at 13:51; Admin Dose 30 MG; Start 01/18/19 at 09:00; Status Hold Fluticasone Propionate (Flonase 0.05% Nasal) 1 spray BID NASAL Last administered on 01/26/19at 09:53; Admin Dose 1 SPRAY; Start 01/18/19 at 09:00 Nicotine (Nicoderm 14 Mg/ 24hr) 1 patch DAILY TRANSDERM Last administered on 01/26/19 09:54; Admin Dose 1 PATCH; Start 01/18/19 at 09:00 Levalbuterol (Xopenex Neb) 0.63 mg Q4H RESP THERAPY PRN HHN SHORTNESS OF BREATH Last administered on 01/25/19 21:59; Admin Dose 0.63 MG; Start 01/18/19 at 15:30 Acetaminophen (Tylenol Tab) 650 mg Q6H PRN PO .PAIN 1-3 OR TEMP Last administered on 01/26/19 01:28; Admin Dose 650 MG; Start 01/19/19 at 13:00 Cyanocobalamin (Vitamin B12) 1,000 mcg DAILY PO Last administered on 01/26/19 09:53; Admin Dose 1,000 MCG; Start 01/20/19 at 09:00 Bisacodyl (Dulcolax) 10 mg DAILY PRN PO CONSTIPATION Last administered on 01/22/19 09:25; Admin Dose 10 MG; Start 01/21/19 at 11:00 Famotidine (Pepcid) 20 mg HS PO Last administered on 01/25/19 21:37; Admin Dose 20 MG; Start 01/22/19 at 21:00 Ferrous Sulfate (Ferrous Sulfate (Ec)) 325 mg DAILY PO Last administered on 01/26/19 09:53; Admin Dose 325 MG; Start 01/26/19 at 09:00 Senna/Docusate Sodium (Senokot-S) 2 tab DAILY PO Last administered on 01/26/19 09:53; Admin Dose 2 TAB; Start 01/24/19 at 09:00 Bisacodyl (Dulcolax Supp) 10 mg Q48H PRN [place] CONSTIPATION; Start 01/23/19 at 10:00 Guaifenesin/ Dextromethorphan (Robitussin Dm Liquid Cup) 10 ml Q4H PRN PO COUGH Last administered on 01/25/19 21:37; Admin Dose 10 ML; Start 01/23/19 at 10:00 Aspirin (Halfprin) 81 mg DAILY PO Last administered on 01/26/19 09:53; Admin Dose 81 MG; Start 01/24/19 at 09:00 ALEX OLIVAS MD Jan 26, 2019 12:16
[2019-01-26] MEDS: FAMOTIDINE 20 MG TAB PO SCH (21:00)
[2019-01-26] MEDS ORDERED: traZODone 50 MG TAB PO ONE (22:30)
[2019-01-27] VITALS (9 sets, daily range): BP systolic 118–148; BP diastolic 63–78; PULSE 69–94; RESP 18–20
[2019-01-27] MEDS ORDERED: POTASSIUM CHLORIDE (SR) 20 MEQ TAB PO STA (08:22)
--- NOTE | 2019-01-27 08:41 | PN ---
DATE: 01/27/2019 SUBJECTIVE: The patient is stable, remains confused. No other events noted. No hemoptysis, hematem esis or hematochezia. OBJECTIVE: VITAL SIGNS: Blood pressure is 139/64, pulse 69, respirations 18, temperature 98.3. HEENT: Head is normocephalic. NECK: Supple. HEART: Regular rate. LUNGS: Show diminished breath sounds at the base. ABDOMEN: Soft, nontender to palpation without rebound or guarding. EXTREMITIES: Negative for clubbing, cyanosis, no edema. DERMATOLOGIC: No rashes. MUSCULOSKELETAL: No joint effusion. NEUROLOGIC: No change in exam. MEDICATIONS: Reviewed. LABORATORY DATA: Reviewed. ASSESSMENT AND PLAN: 1. Nonoliguric acute kidney injury on top of chronic kidney disease stage III with previous baseline creatinine around 1.5 mg/dL. Etiology of acute kidney injury is secondary to hemodynamics. Renal f unction is improved, currently below baseline. Continue current treatment plans, supportive care, re pablo dose all medications. 2. Acute diastolic heart failure. The patient appears near euvolemic status. We will continue the patient on low-dose diuretic therapy. 3. Hypokalemia. Replete with potassium chloride. 4. Anemia. Monitor hemoglobin and hematocrit levels. 5. Mineral bone disorder, monitor calcium and phosphorus levels. 6. Sepsis secondary to pneumonia. The patient is completing antibiotic course. 7. Acute encephalopathy, etiology is toxic metabolic. 8. Acute respiratory failure secondary to pneumonia and congestive heart failure. Continue medical management. Dictated By: NATI LUONG DO NR/NTS Conf#: [id number] DID#: [id number] CC: COREY CRUMP MD; NICHOLAS BHAKTA MD;*EndCC*
[2019-01-27] MEDS: FLUTICASONE 0.05% 16 GM NAS SPRAY NASAL SCH ×2 (08:45→21:47)
[2019-01-27] MEDS: SENNA/DOCUSATE NA (8.6MG/50MG) TAB PO SCH (08:46)
[2019-01-27] MEDS: ASPIRIN (EC) 81 MG TAB PO SCH (08:46)
[2019-01-27] MEDS: FERROUS SULFATE (EC) 325 MG TAB PO SCH (08:46)
[2019-01-27] MEDS: CYANOCOBALAMIN 500 MCG TAB PO SCH (08:46)
[2019-01-27] MEDS: FUROSEMIDE 20 MG TAB PO SCH (08:47)
[2019-01-27] MEDS: NICOTINE (14 MG/24 HR) PATCH TRANSDERM SCH (08:48)
--- NOTE | 2019-01-27 10:45 | PN ---
Date/Time of Note Date/Time of Note DATE: 01/27/19 TIME: 10:45 Assessment/Plan VTE Prophylaxis Risk score (from Ns)>0 risk: 4 SCD applied (from Ns): Yes Pharmacological prophylaxis: heparin Lines/Catheters IV Catheter Type (from Nrsg): Saline Lock Urinary Cath still in place: No Assessment/Plan Hospital Course Alert interactive Flat neck veins Clear lungs RRR Soft nt nd No edema A/P 83 yo male wtih diastolic CHF, COPD, possible cognitive impairment who presents with acute encephalopathy and JUANA - Dc abx, completed his course JUANA: - Improved with fluids - Hold lasix Diastolic CHF: - Closely monitor volume status, lasix PRN Acute encephelopathy: - Suspect element of toxic/metabolic given electrolyte derangements - Continue to monitor - Seems resolved Hypokalemia: - Replete as needed DNR PT/OT Dc to SNF Result Diagram: 01/27/1916 01/27/19 0516 Results 24hrs Laboratory Tests Test 01/27/19 05:16 White Blood Count 9.6 # Red Blood Count 3.10 L Hemoglobin 10.4 L Hematocrit 30.9 L Mean Corpuscular Volume 99.7 Mean Corpuscular Hemoglobin 33.5 H Mean Corpuscular Hemoglobin Concent 33.7 Red Cell Distribution Width 13.0 Platelet Count 164 Mean Platelet Volume 12.4 H Immature Granulocytes % 0.600 H Neutrophils % 78.9 H Lymphocytes % 12.2 L Monocytes % 6.1 Eosinophils % 1.9 Basophils % 0.3 Nucleated Red Blood Cells % 0.0 Immature Granulocytes # 0.060 H Neutrophils # 7.6 H Lymphocytes # 1.2 Monocytes # 0.6 Eosinophils # 0.2 Basophils # 0.0 Nucleated Red Blood Cells # 0.0 Sodium Level 135 Potassium Level 3.4 L Chloride Level 101 Carbon Dioxide Level 29 Anion Gap 5 Blood Urea Nitrogen 23 H Creatinine 1.11 Est Glomerular Filtrat Rate mL/min Glucose Level 96 Calcium Level 8.9 Phosphorus Level 3.4 Magnesium Level 2.1 Subjective 24 Hr Interval Summary Free Text/Dictation Alert and interactive Appears back to baseline Renal function normalized Breathing comfortably Exam/Review of Systems Exam Vitals Vital Signs Date Temp Pulse Resp B/P (MAP) Pulse Ox O2 O2 Flow FiO2 Time Delivery Rate 01/27/19 89 08:00 01/27/19 Nasal 2.0 07:37 Cannula 01/27/19 98.3 18 139/64 98 07:20 (89) 01/23/19 24 13:12 Intake and Output 01/26/19 01/26/19 01/27/19 1515:00 23:00 07:00 IntakeIntake Total 840 ml 200 ml OutputOutput Total 750 ml BalanceBalance 90 ml 200 ml Results Results 24hrs Laboratory Tests Test 01/27/19 05:16 White Blood Count 9.6 # Red Blood Count 3.10 L Hemoglobin 10.4 L Hematocrit 30.9 L Mean Corpuscular Volume 99.7 Mean Corpuscular Hemoglobin 33.5 H Mean Corpuscular Hemoglobin Concent 33.7 Red Cell Distribution Width 13.0 Platelet Count 164 Mean Platelet Volume 12.4 H Immature Granulocytes % 0.600 H Neutrophils % 78.9 H Lymphocytes % 12.2 L Monocytes % 6.1 Eosinophils % 1.9 Basophils % 0.3 Nucleated Red Blood Cells % 0.0 Immature Granulocytes # 0.060 H Neutrophils # 7.6 H Lymphocytes # 1.2 Monocytes # 0.6 Eosinophils # 0.2 Basophils # 0.0 Nucleated Red Blood Cells # 0.0 Sodium Level 135 Potassium Level 3.4 L Chloride Level 101 Carbon Dioxide Level 29 Anion Gap 5 Blood Urea Nitrogen 23 H Creatinine 1.11 Est Glomerular Filtrat Rate mL/min Glucose Level 96 Calcium Level 8.9 Phosphorus Level 3.4 Magnesium Level 2.1 Medications Medication Current Medications IV Flush (NS 3 ml) 3 ml PER PROTOCOL IV ; Start 01/17/19 at 22:00 Ondansetron HCl (Zofran Inj) 4 mg Q6H PRN IV NAUSEA/VOMITING; Start 01/17/19 at 22:00 Enoxaparin Sodium (Lovenox) 30 mg DAILY SC Last administered on 01/18/19at 13:51; Admin Dose 30 MG; Start 01/18/19 at 09:00; Status Hold Fluticasone Propionate (Flonase 0.05% Nasal) 1 spray BID NASAL Last administered on 01/27/19at 08:45; Admin Dose 1 SPRAY; Start 01/18/19 at 09:00 Nicotine (Nicoderm 14 Mg/ 24hr) 1 patch DAILY TRANSDERM Last administered on 01/27/19at 08:48; Admin Dose 1 PATCH; Start 01/18/19 at 09:00 Levalbuterol (Xopenex Neb) 0.63 mg Q4H RESP THERAPY PRN HHN SHORTNESS OF BREATH Last administered on 01/25/19 21:59; Admin Dose 0.63 MG; Start 01/18/19 at 15:30 Acetaminophen (Tylenol Tab) 650 mg Q6H PRN PO .PAIN 1-3 OR TEMP Last administered on 01/26/19 19:17; Admin Dose 650 MG; Start 01/19/19 at 13:00 Cyanocobalamin (Vitamin B12) 1,000 mcg DAILY PO Last administered on 01/27/19 08:46; Admin Dose 1,000 MCG; Start 01/20/19 at 09:00 Bisacodyl (Dulcolax) 10 mg DAILY PRN PO CONSTIPATION Last administered on 01/22/19 09:25; Admin Dose 10 MG; Start 01/21/19 at 11:00 Famotidine (Pepcid) 20 mg HS PO Last administered on 01/26/19 21:00; Admin Dose 20 MG; Start 01/22/19 at 21:00 Ferrous Sulfate (Ferrous Sulfate (Ec)) 325 mg DAILY PO Last administered on 01/27/19 08:46; Admin Dose 325 MG; Start 01/26/19 at 09:00 Senna/Docusate Sodium (Senokot-S) 2 tab DAILY PO Last administered on 01/27/19 08:46; Admin Dose 2 TAB; Start 01/24/19 at 09:00 Bisacodyl (Dulcolax Supp) 10 mg Q48H PRN [place] CONSTIPATION; Start 01/23/19 at 10:00 Guaifenesin/ Dextromethorphan (Robitussin Dm Liquid Cup) 10 ml Q4H PRN PO COUGH Last administered on 01/25/19 21:37; Admin Dose 10 ML; Start 01/23/19 at 10:00 Aspirin (Halfprin) 81 mg DAILY PO Last administered on 01/27/19 08:46; Admin Dose 81 MG; Start 01/24/19 at 09:00 Furosemide (Lasix) 20 mg DAILY PO Last administered on 01/27/19 08:47; Admin Dose 20 MG; Start 01/27/19 at 09:00 ALEX OLIVAS MD Jan 27, 2019 10:45
[2019-01-27] MEDS: ACETAMINOPHEN 325 MG TAB PO PRN (15:27)
[2019-01-27] MEDS: FAMOTIDINE 20 MG TAB PO SCH (21:47)
[2019-01-28] VITALS (8 sets, daily range): BP systolic 118–142; BP diastolic 59–73; PULSE 69–90; RESP 16–20
[2019-01-28] MEDS ORDERED: traZODone 50 MG TAB PO ONE (03:30)
[2019-01-28] MEDS: NICOTINE (14 MG/24 HR) PATCH TRANSDERM SCH (08:40)
[2019-01-28] MEDS: FLUTICASONE 0.05% 16 GM NAS SPRAY NASAL SCH (08:40)
[2019-01-28] MEDS: SENNA/DOCUSATE NA (8.6MG/50MG) TAB PO SCH (08:41)
[2019-01-28] MEDS: FERROUS SULFATE (EC) 325 MG TAB PO SCH (08:41)
[2019-01-28] MEDS: ASPIRIN (EC) 81 MG TAB PO SCH (08:41)
[2019-01-28] MEDS: CYANOCOBALAMIN 500 MCG TAB PO SCH (08:41)
[2019-01-28] MEDS: FUROSEMIDE 20 MG TAB PO SCH (08:41)
--- NOTE | 2019-01-28 09:35 | PN ---
DATE: 01/28/2019 SUBJECTIVE: The patient is stable. No events overnight. OBJECTIVE: VITAL SIGNS: Blood pressure is 128/69, pulse 69, respiration 20, temperature 98.0. HEENT: Head is normocephalic. NECK: Supple. HEART: Regular rate. LUNGS: Show diminished breath sounds at the base. ABDOMEN: Soft, nontender to palpation without rebound or guarding. EXTREMITIES: Negative for clubbing, cyanosis, no edema. DERMATOLOGIC: No rashes. MUSCULOSKELETAL: No joint effusion. NEUROLOGIC: No change in exam. MEDICATIONS: The patient's medications have been reviewed. LABORATORY DATA MEDICATIONS: Has been reviewed. ASSESSMENT AND PLAN: 1. Nonoliguric acute kidney injury on top CKD stage III with previous baseline creatinine around 1.5 mg/dL. Etiology of JUANA is secondary to hemodynamics. Renal function is improved. Continue current treatment plan, supportive care and renally dose all medications. 2. Acute diastolic heart failure. The patient appears near euvolemic status. Continue low-dose diu retic therapy. 3. Hypokalemia. Continue to monitor and replete as needed. 4. Anemia. Monitor H and H levels. 5. Mineral bone disorder. Monitor calcium and phosphorus levels. 6. Sepsis secondary to pneumonia. Patient is completing an antibiotic course. 7. Acute encephalopathy, etiology is toxic metabolic. 8. Acute respiratory failure secondary to pneumonia and congestive heart failure. Continue medical management. Dictated By: NATI LUONG DO NR/NTS Conf#: [id number] DID#: [id number] CC: NICHOLAS BHAKTA MD; COREY CRUMP MD;*End*
--- NOTE | 2019-01-28 12:51 | PN ---
Date/Time of Note Date/Time of Note DATE: 01/28/19 TIME: 12:50 Assessment/Plan VTE Prophylaxis Risk score (from Nsg)>0 risk: 4 SCD applied (from Nsg): Yes Pharmacological prophylaxis: heparin Lines/Catheters IV Catheter Type (from Nrsg): Saline Lock Urinary Cath still in place: No Assessment/Plan Hospital Course Alert interactive Flat neck veins Clear lungs RRR Soft nt nd No edema A/P 83 yo male wtih diastolic CHF, COPD, possible cognitive impairment who presents with acute encephalopathy and JUANA - Dc abx, completed his course JUANA: - Improved with fluids - Hold lasix Diastolic CHF: - Closely monitor volume status, lasix PRN Acute encephelopathy: - Suspect element of toxic/metabolic given electrolyte derangements - Continue to monitor - Seems resolved Hypokalemia: - Replete as needed DNR PT/OT Dc to SNF Result Diagram: 01/27/19 0516 01/28/19 0537 Results 24hrs Laboratory Tests Test 01/28/19 05:37 Sodium Level 137 Potassium Level 4.1 Chloride Level 101 Carbon Dioxide Level 31 Anion Gap 5 Blood Urea Nitrogen 22 H Creatinine 1.12 Est Glomerular Filtrat Rate mL/min Glucose Level 104 Calcium Level 9.2 Phosphorus Level 3.4 Magnesium Level 2.0 Subjective 24 Hr Interval Summary Free Text/Dictation Resting comfortably No events Awaiting placement Exam/Review of Systems Exam Vitals Vital Signs Date Temp Pulse Resp B/P (MAP) Pulse Ox O2 O2 Flow FiO2 Time Delivery Rate 01/28/19 98.0 79 20 130/59 94 Room Air 10:43 (82) 01/28/19 2.0 07:49 Intake and Output 01/27/19 01/27/19 01/28/19 1515:00 23:00 07:00 IntakeIntake Total 780 ml 300 ml OutputOutput Total 800 ml BalanceBalance -20 ml 300 ml Results Results 24hrs Laboratory Tests Test 01/28/19 05:37 Sodium Level 137 Potassium Level 4.1 Chloride Level 101 Carbon Dioxide Level 31 Anion Gap 5 Blood Urea Nitrogen 22 H Creatinine 1.12 Est Glomerular Filtrat Rate mL/min Glucose Level 104 Calcium Level 9.2 Phosphorus Level 3.4 Magnesium Level 2.0 Medications Medication Current Medications IV Flush (NS 3 ml) 3 ml PER PROTOCOL IV ; Start 01/17/19 at 22:00 Ondansetron HCl (Zofran Inj) 4 mg Q6H PRN IV NAUSEA/VOMITING; Start 01/17/19 at 22:00 Enoxaparin Sodium (Lovenox) 30 mg DAILY SC Last administered on 01/18/19 13:51; Admin Dose 30 MG; Start 01/18/19 at 09:00; Status Hold Fluticasone Propionate (Flonase 0.05% Nasal) 1 spray BID NASAL Last administered on 01/28/19 08:40; Admin Dose 1 SPRAY; Start 01/18/19 at 09:00 Nicotine (Nicoderm 14 Mg/ 24hr) 1 patch DAILY TRANSDERM Last administered on 01/28/19 08:40; Admin Dose 1 PATCH; Start 01/18/19 at 09:00 Levalbuterol (Xopenex Neb) 0.63 mg Q4H RESP THERAPY PRN HHN SHORTNESS OF BREATH Last administered on 01/25/19 21:59; Admin Dose 0.63 MG; Start 01/18/19 at 15:30 Acetaminophen (Tylenol Tab) 650 mg Q6H PRN PO .PAIN 1-3 OR TEMP Last administered on 01/27/19 15:27; Admin Dose 650 MG; Start 01/19/19 at 13:00 Cyanocobalamin (Vitamin B12) 1,000 mcg DAILY PO Last administered on 01/28/19 08:41; Admin Dose 1,000 MCG; Start 01/20/19 at 09:00 Bisacodyl (Dulcolax) 10 mg DAILY PRN PO CONSTIPATION Last administered on 01/22/19 09:25; Admin Dose 10 MG; Start 01/21/19 at 11:00 Famotidine (Pepcid) 20 mg HS PO Last administered on 01/27/19 21:47; Admin Dose 20 MG; Start 01/22/19 at 21:00 Ferrous Sulfate (Ferrous Sulfate (Ec)) 325 mg DAILY PO Last administered on 01/28/19 08:41; Admin Dose 325 MG; Start 01/26/19 at 09:00 Senna/Docusate Sodium (Senokot-S) 2 tab DAILY PO Last administered on 01/28/19 08:41; Admin Dose 2 TAB; Start 01/24/19 at 09:00 Bisacodyl (Dulcolax Supp) 10 mg Q48H PRN [place] CONSTIPATION; Start 01/23/19 at 10:00 Guaifenesin/ Dextromethorphan (Robitussin Dm Liquid Cup) 10 ml Q4H PRN PO COUGH Last administered on 01/25/19at 21:37; Admin Dose 10 ML; Start 01/23/19 at 10:00 Aspirin (Halfprin) 81 mg DAILY PO Last administered on 01/28/19 08:41; Admin Dose 81 MG; Start 01/24/19 at 09:00 Furosemide (Lasix) 20 mg DAILY PO Last administered on 01/28/19 08:41; Admin Dose 20 MG; Start 01/27/19 at 09:00 ALEX OLIVAS MD Jan 28, 2019 12:51
--- NOTE | 2019-01-28 16:20 | DS ---
Date/Time of Note Date/Time of Note DATE: 01/28/19 TIME: 16:18 Discharge Summary Admission/Discharge Info Admit Date/Time Jan 17, 2019 at 21:19 Discharge Date/Time Discharge Diagnosis JUANA Acute encephelopathy Patient Condition: Stable Hospital Course Patient presented with acute encephelopathy, SIRS and JUANA. He was clearly dehydrated/hypovolemic and had been receiving excess lasix as an outpatinet. This was held and he was given IV fluids. His renal function and electrolyte abnromalities improved. He was treated with an empiric course of antibiotics for possible pneumoina. His mental status resolved to baseline, he does have cognitive impairment. He was deemed unable to return home alone safely and is being discharged to a SNF A/P 83 yo male wtih diastolic CHF, COPD, possible cognitive impairment who presents with acute encephalopathy and JUANA - Dc abx, completed his course JUANA: - Improved with fluids - Hold lasix Diastolic CHF: - Closely monitor volume status, lasix PRN Acute encephelopathy: - Suspect element of toxic/metabolic given electrolyte derangements - Continue to monitor - Seems resolved Hypokalemia: - Replete as needed DNR PT/OT Dc to SNF Home Meds Active Scripts Furosemide* (Lasix*) 20 Mg Tablet, 20 MG PO DAILY, #60 TAB Prov:AUBREY VALENCIA 11/11/18 Cyanocobalamin* (Vitamin B12*) 500 Mcg Tab, 1000 MCG PO DAILY for 30 Days, #60 TAB 1 Refill Prov:GOMEZ TRISTAN MD 10/08/18 Fluticasone Propionate* (Fluticasone Propionate* Nasal) 50 Mcg/[place] - 16 Gm [place].susp, 1 SPRAY NASAL BID for 30 Days, #1 BOT 1 Refill Prov:GOMEZ TRISTAN MD 10/08/18 Ferrous Sulfate* (Ferrous Sulfate*) 325 Mg Tabec, 325 MG PO DAILY for 30 Days, #30 TAB 6 Refills Prov:GOMEZ TRISTAN MD 10/08/18 Loratadine* (Loratadine*) 10 Mg Tablet, 10 MG PO DAILY for 30 Days, #30 TAB Prov:GOMEZ TRSITAN MD 10/08/18 Albuterol Sulfate (Proair Respiclick) 90 Mcg Aer.pow.ba, 2 PUFFS INHALATION Q6 PRN for WHEEZING AND SOB, #1 BOTTLE 2 Refills Prov:NICHOLAS BHAKTA MD 09/15/18 Docusate Sodium (Dok) 100 Mg Capsule, 100 MG PO Q12H PRN for .CONSTIPATION for 1 Day, #1 CAP otc Prov:NICHOLAS BHAKTA MD 09/15/18 Acetaminophen* (Tylenol*) 325 Mg Tablet, 650 MG PO Q6H PRN for .PAIN 1-3 OR TEMP for 1 Day, #1 TAB Prov:NICHOLAS BHAKTA MD 09/15/18 Aspirin Delayed Release (Aspirin Delayed Release) 81 Mg Tablet.dr, 81 MG PO DAILY for 30 Days, #30 Prov:NICHOLAS BHAKTA MD 09/15/18 Metoprolol Tartrate* (Lopressor*) 50 Mg Tab, 50 MG PO BID for 14 Days, #30 TAB Prov:NICHOLAS BHAKTA MD 09/15/18 [Nicotine (14 Mg/24 Hr)] 1 PATCH PATCH No Conflict Check, 1 PATCH TRANSDERM DAILY PRN for CONTROL WITHDRAWAL SYMPTOMS for 7 Days otc Prov:NICHOLAS BHAKTA MD 09/15/18 Primary Care Provider Not On Staff Doctor Pending Labs Laboratory Tests Test 01/28/19 05:37 Sodium Level 137 mmol/L (135-144) Potassium Level 4.1 mmol/L (3.5-5.1) Chloride Level 101 mmol/L (97-110) Carbon Dioxide Level 31 mmol/L (21-31) Anion Gap 5 (5-13) Blood Urea Nitrogen 22 mg/dl (7-20) Creatinine 1.12 mg/dl (0.61-1.24) Est Glomerular Filtrat Rate mL/min mL/min (>60) Glucose Level 104 mg/dl (70-220) Calcium Level 9.2 mg/dl (8.4-10.2) Phosphorus Level 3.4 mg/dl (2.5-4.9) Magnesium Level 2.0 mg/dl (1.7-2.5) ALEX OLIVAS MD Jan 28, 2019 16:20
[2019-01-28] MEDS: ACETAMINOPHEN 325 MG TAB PO PRN (17:18)
== END 2019-01-28 19:41 | DRG 91 ==
LOC: E/R 18:07 → TEL 21:19 → PP2 01-19 14:17 → 6WM 01-19 17:43
PROVIDERS: ADMIT Internal Medicine; ATTEND Internal Medicine
DX: G92 Toxic encephalopathy (principal); J96.01 Acute respiratory failure with hypoxia; I21.A1 Myocardial infarction type 2; N17.9 Acute kidney failure, unspecified; E87.1 Hypo-osmolality and hyponatremia; E87.3 Alkalosis; R65.10 Systemic inflammatory response syndrome (SIRS) of non-infectious origin without acute organ dysfunction; J44.1 Chronic obstructive pulmonary disease with (acute) exacerbation; I13.0 Hypertensive heart and chronic kidney disease with heart failure and stage 1 through stage 4 chronic kidney disease, or unspecified chronic kidney disease; I50.30 Unspecified diastolic (congestive) heart failure; N18.4 Chronic kidney disease, stage 4 (severe); I48.91 Unspecified atrial fibrillation; R10.13 Epigastric pain; E53.8 Deficiency of other specified B group vitamins; E87.6 Hypokalemia; D72.829 Elevated white blood cell count, unspecified; G31.84 Mild cognitive impairment of uncertain or unknown etiology; R06.89 Other abnormalities of breathing
CPT/HCPCS: 36415; 36600; 70450; 71045; 74018; 76775; 80048; 80053; 81001; 81003; 82043; 82150; 82607; 82746; 82803; 83036; 83605; 83690; 83735; 83880; 84100; 84155; 84300; 84439; 84443; 84480; 84484; 85025; 85610; 85730; 87086; 92526; 92610; 93005; 93306; 94640; 94644; 94660; 94664; 96374; 96375; 97110; 97116; 97161; 97530; J0696; J1630; J1650; J1940; J2060; J2543; J2930; J3480; J7030; J7040; J7050